=== PATIENT | female | born 1955 | race Caucasian/White ===

== ENCOUNTER 2019-06-19 06:09 | Emergency (ER) | payer MEDICARE, SELFPAY ==
--- NOTE | ~2019-06-19 | XR_ITS ---
EXAMINATION: XR chest 2V DATE: 06/19/2019 07:37 INDICATION: Palpitations. Hypertension. TECHNIQUE: PA and lateral views of the chest were obtained. COMPARISON: Chest radiograph dated 04/27/2019 FINDINGS: The lungs remain clear with no focal airspace opacities, pulmonary edema, pleural effusion or pneumot horax. The cardiomediastinal silhouette is normal. Cholecystectomy clips in the right upper quadrant. Mild lumbar levoscoliosis with moderate spondylosis. IMPRESSION: 1. No acute cardiopulmonary disease. Reviewed, dictated and finalized at location A. CLEANING ATTENDANT
[2019-06-19 06:18] VITALS: BP 199/101; PULSE 110; RESP 20; TEMP 36.7; O2SAT 97
--- NOTE | 2019-06-19 06:24 | ECG_ITS ---
Measurements Intervals [place] Rate: 109 P: 42 SC: 178 QRS: -8 QRSD: 137 T: -5 QT: 354 QTc: 478 Interpretive Statements SINUS TACHYCARDIA RIGHT BUNDLE BRANCH BLOCK ABNORMAL ECG Electronically Signed On 06-19-2019 7:05:43 STAFF NURSE ANESTHETIST by Carlito Mtz D.O.
[2019-06-19 06:27] VITALS: BP 199/97; PULSE 116; RESP 20; O2SAT 100
--- NOTE | 2019-06-19 06:40 | ED.GENADULT ---
HPI - General Adult General Chief complaint: Recheck/Abnormal Lab/Rx Stated complaint: High BP Time Seen by Provider: 06/19/19 06:40 Source: patient Mode of arrival: ambulatory Limitations: no limitations History of Present Illness HPI narrative: Patient is a 64-year-old female who presents for evaluation of hypertension and palpitations. Patient reports a complicated course of hormone issues for which she follows at [facility]. Patient states that she is on exogenous estrogen for this, and awakened this morning at 4 in the morning with a feeling of general unwellness, she denied any chest pain, did report very mild palpitations. No shortness of breath. She denies leg swelling or pain. No history of DVT. Patient takes an ibuprofen, denies taking other anticoagulants. She denies fever, cough, shortness of breath, abdominal pain, nausea, vomiting, dysuria or hematuria. Patient states that her palpitations often correlate with her menstrual cycle, but this is not the correct timing of her symptoms. Patient otherwise follows with Dr. Hawkins, has taken metoprolol with resolution of her palpitations in the past. Related Data Home Medications Medication Instructions Recorded Confirmed levothyroxine [Levoxyl] 175 mcg PO DAILY 04/30/19 06/19/19 metformin 750 mg PO BID 04/30/19 06/19/19 icosapent ethyl 1 gram capsule 4 gm PO BID 05/22/19 06/19/19 metoprolol succinate 50 mg 50 mg PO DAILY 05/22/19 06/19/19 tablet,extended release 24 hr estradiol 0.1 mg PO DAILY 06/19/19 06/19/19 Allergies Allergy/AdvReac Type Severity Reaction Status Date / Time gianna Allergy Severe HIVES/RED Verified 06/19/19 06:25 FACE Penicillins Allergy Severe ANAPHYLACTIC Verified 06/19/19 06:25 SHOCK levofloxacin Allergy Intermediate Rash Verified 06/19/19 06:25 penicillin G Allergy Intermediate Rash Verified 06/19/19 06:25 red dye Allergy Intermediate HIVES Verified 06/19/19 06:25 Sulfa (Sulfonamide Allergy Intermediate Rash Verified 06/19/19 06:25 Antibiotics) Yylqthd-Zjm-Tqt Reductase Allergy Unknown IRRITABLE Verified 06/19/19 06:25 Inhibitor BOWEL doxycycline Allergy Unknown Verified 06/19/19 06:25 Contrast Media Allergy Unknown BODY RASH Uncoded 06/19/19 06:25 Review of Systems Review of Systems: Narrative: CONSTITUTIONAL: Denies fever, chills, or sweats. EYES: Denies visual changes, redness, or discharge. ENT: Denies rhinorrhea, reports sinus congestion CARDIOVASCULAR: Denies chest pain, reports palpitations, denies extremity edema RESPIRATORY: Denies cough or dyspnea. GASTROINTESTINAL: Denies abdominal pain, nausea, vomiting, or diarrhea. GENITOURINARY: Denies dysuria or hematuria. SKIN: Denies rash or itching. MUSCULOSKELETAL: Denies back pain, joint pain, or myalgia. NEUROLOGIC: Denies headache, numbness, or weakness. [facility] Past Medical History Medical History Bilateral artificial lens implant Cataracts, bilateral Diabetes Endometriosis Krzysztof's thyroiditis HTN (hypertension) Hyperlipidemia Hypothyroid IBS (irritable bowel syndrome) Migraine Rosacea Sinus problem Small bowel obstruction Toe fracture, right Ureteropelvic junction calculus Wears glasses reading Surgical History Surgical History H/O inguinal hernia repair History of cholecystectomy History of lithotripsy History of total hysterectomy with bilateral salpingo-oophorectomy (BSO) History of tubal ligation Family History Family History Father Family history of elevated blood lipids Family history of diabetes mellitus in first degree relative Sibling Family history of elevated blood lipids Mother Family history of coronary artery disease Social History Social History Smoking status: Never smoker Sec
[2019-06-19] MEDS: SODIUM CHLORIDE 0.9% IV 1,000 ML 999 ML IV CONT (07:09)
[2019-06-19 07:10] VITALS: BP 171/99; PULSE 100; RESP 17; TEMP 36.2; O2SAT 98
[2019-06-19 07:17] LABS: Add Urine Microscopic? YES; Appearance Urine Clear (Clear); Bilirubin Urine Negative (Negative); Blood Urine Negative (Negative); Color Urine Yellow (Yellow); Glucose Urine UA Negative (Negative); Hyaline Casts Urine 20-29 /lpf; Ketones Urine Trace mg/dL (Negative); Leukocyte Esterase Ur Negative LEU/UL (Negative); Mucus Urine Heavy /lpf; Nitrate Urine Negative (Negative); Protein Urine 1+ mg/dL (Negative); RBC Urine 0-2 /hpf (0-2); Squamous Epithelial Cell Urine Few /hpf (Few); WBC Urine 0-3 /hpf
[2019-06-19 07:18] LABS: Specific Grav Ur 1.033 (1.001-1.035)
--- NOTE | 2019-06-19 07:36 | PC.NURSE ---
Patient in CT at this time
[2019-06-19 07:37] LABS: Basophils Percent Auto 0.6 % (0.2-1.2); Eosinophils Absolute Auto 0.1 K/mm3 (0-0.3); Eosinophils Percent Auto 2.3 % (0-4.4); Hematocrit 38.3 % (37.0-47.0); Hemoglobin 12.5 g/dL (12.0-15.0); Immature Granulocyte Absolute 0.01 K/mm3 (0.00-0.031); Immature Granulocyte Percent A 0.3 % (0-0.5); Lymphocytes Absolute Auto 1.51 K/mm3 (0.9-3.2); Lymphocytes Percent Auto 43.5 % (18.3-44.2); Mean Corpuscular HGB Conc 32.6 g/dl (32-36); Mean Corpuscular Hemoglobin 27.1 pg (26-34); Mean Corpuscular Volume 82.9 fl (80-100); Mean Platelet Volume 8.3 fl (7.4-10.4); Monocytes Absolute Auto 0.5 K/mm3 (0.1-0.6); Monocytes Percent Auto 13.8 % (2.6-8.5); Neutrophils Absolute Auto 1.4 K/mm3 (1.3-6.7); Neutrophils Percent Auto 39.5 % (45.5-73.1); Platelet Count Result 309 k/mm3 (150-375); Red Blood Count 4.62 M/mm3 (4.2-5.4); White Blood Count 3.5 K/mm3 (4.5-10.0)
[2019-06-19 07:48] LABS: Blood Urea Nitrogen 15 mg/dL (7-17); Calcium 8.7 mg/dL (8.4-10.2); Carbon Dioxide 19 mmol/L (22-30); Chloride 106 mmol/L (98-107); Estimated Glomerular Filt Rate > 60; Glucose 110 mg/dL (65-105); Sodium 139 mmol/L (137-145)
[2019-06-19 07:51] VITALS: RESP 18
[2019-06-19 08:00] LABS: Troponin I < 0.012 ng/mL (0.000-0.034)
[2019-06-19 08:03] LABS: Partial Thromboplastin Time 22.1 SECONDS (22.3-36.8); Prothrombin Time 12.5 Seconds (11.1-14.7)
[2019-06-19 09:00] VITALS: BP 166/92; PULSE 87; RESP 17; TEMP 36.7; O2SAT 98
[2019-06-19 09:34] LABS: Thyroid Stimulating Hormone Reflex 0.652 uIU/mL (0.465-4.68)
[2019-06-19 09:50] LABS: Troponin I < 0.012 ng/mL (0.000-0.034)
[2019-06-19 10:20] VITALS: BP 157/93; PULSE 88; RESP 25; TEMP 36.3; O2SAT 100
== END 2019-06-19 10:20 | disposition home or self-care (01) ==
PROVIDERS: Emergency Provider Emergency Medicine; PCP Family Medicine Adolescent Medicine
DX: R00.2 Palpitations (principal); E11.9 Type 2 diabetes mellitus without complications; N80.9 Endometriosis, unspecified; E06.3 Autoimmune thyroiditis; I10 Essential (primary) hypertension; E78.5 Hyperlipidemia, unspecified; E03.9 Hypothyroidism, unspecified; K58.9 Irritable bowel syndrome, unspecified; Z98.42 Cataract extraction status, left eye; Z98.41 Cataract extraction status, right eye; Z96.1 Presence of intraocular lens; Z79.84 Long term (current) use of oral hypoglycemic drugs; R00.0 Tachycardia, unspecified; I45.10 Unspecified right bundle-branch block
CPT/HCPCS: 36415; 71046; 80048; 81001; 84443; 84484; 85025; 85380; 85610; 85730; 93005; 96360; 99284; J7030

== ENCOUNTER 2019-06-21 13:12 | Emergency (ER) | payer MEDICARE, SELFPAY ==
--- NOTE | 2019-06-21 14:25 | PC.NURSE ---
pt states symptoms have completely resolved. states does not need to be seen
== END 2019-06-21 14:25 | disposition left against medical advice (07) ==
LOC: ANHED 14:56
PROVIDERS: PCP Family Medicine Adolescent Medicine
DX: Z53.21 Procedure and treatment not carried out due to patient leaving prior to being seen by health care provider (principal)
CPT/HCPCS: 99199

== ENCOUNTER 2019-07-22 00:58 | Emergency (ER) | payer MEDICARE, SELFPAY ==
--- NOTE | ~2019-07-22 | XR_ITS ---
XR chest 2V DATE: 07/22/2019 01:23 INDICATION: Chest pressure TECHNIQUE: PA and lateral views COMPARISON: 06/18/2021 view chest FINDINGS: Normal heart size. No hilar or mediastinal enlargement. No pulmonary infiltrate or consolid ation, pleural effusion or pulmonary vascular congestion or pneumothorax. Surgical clips, right upper quadrant, likely due to cholecystectomy. Scoliosis and degenerative changes of the thoracic and lumbar spine. IMPRESSION: No active cardiopulmonary disease Reviewed, dictated and finalized at location A.
--- NOTE | 2019-07-22 01:09 | ECG_ITS ---
Measurements Intervals [place] Rate: 99 P: 6 AR: 160 QRS: 6 QRSD: 143 T: -13 QT: 374 QTc: 480 Interpretive Statements SINUS RHYTHM RIGHT BUNDLE BRANCH BLOCK BASELINE ARTIFACT- I, II, AVR, AVF ABNORMAL ECG Electronically Signed On 07-22-2019 8:02:59 CDT by Carlito Mtz D.O.
[2019-07-22 01:11] VITALS: BP 171/101; PULSE 96; RESP 19; TEMP 37; O2SAT 98
[2019-07-22 01:15] VITALS: O2SAT 100
--- NOTE | 2019-07-22 01:22 | ED.CHESTPAIN ---
HPI - Chest Pain General Chief Complaint: Chest Pain Stated Complaint: high bp, chest presssure, high HR Time Seen by Provider: 07/22/19 01:20 Source: patient and RN notes reviewed Mode of arrival: other Limitations: no limitations History of Present Illness HPI narrative: Pt is a 64 y/o male who presents to the ED with c/o chest pain that began at 6 PM yesterday (07/21/19) evening while at rest. Pt states that her pulse was in the 115-120 while at rest. Pt has a hx of Krzysztof's thyroiditis. Pt states that her TSH is in range when her blood pressure will peak. Pt states that she when she takes Metoprolol, her blood pressure will drop. Pt took Metoprolol at 6 PM and she took her blood pressure every 15 minutes before slowly declining. She notes her blood pressure was 145/80 at 8 PM yesterday. Pt states that she took Metoprolol again at 9 PM and her blood pressure raised to 157/90s. Pt states that this is the first case that her blood pressure began to rise after declining. Pt denies palpations, dyspnea, abdominal pain, nausea, vomiting, and diaphoresis. No leg swelling. No leg redness, no recent surgeries, no recent long car or air travel. MD complaint: chest pain Onset (ago): hour(s) Prior episodes: Yes Onset: during rest Pain radiation: none Relieving factors: nothing Associated symptoms: other (denies associated symptoms) Related Data Home Medications Medication Instructions Recorded Confirmed levothyroxine [Levoxyl] 175 mcg PO DAILY 04/30/19 06/19/19 metformin 750 mg PO BID 04/30/19 06/19/19 icosapent ethyl 1 gram capsule 4 gm PO BID 05/22/19 06/19/19 metoprolol succinate 50 mg 50 mg PO DAILY 05/22/19 06/19/19 tablet,extended release 24 hr estradiol 0.1 mg PO DAILY 06/19/19 06/19/19 Allergies Allergy/AdvReac Type Severity Reaction Status Date / Time gianna Allergy Severe HIVES/RED Verified 06/19/19 06:25 FACE Penicillins Allergy Severe ANAPHYLACTIC Verified 06/19/19 06:25 SHOCK levofloxacin Allergy Intermediate Rash Verified 06/19/19 06:25 penicillin G Allergy Intermediate Rash Verified 06/19/19 06:25 red dye Allergy Intermediate HIVES Verified 06/19/19 06:25 Sulfa (Sulfonamide Allergy Intermediate Rash Verified 06/19/19 06:25 Antibiotics) Ebovvrb-Tsm-Yzj Reductase Allergy Unknown IRRITABLE Verified 06/19/19 06:25 Inhibitor BOWEL doxycycline Allergy Unknown Verified 06/19/19 06:25 Contrast Media Allergy Unknown BODY RASH Uncoded 06/19/19 06:25 Review of Systems Review of Systems: Narrative: CARDIOVASCULAR: Reports chest pain. Denies palpitations and diaphoresis. RESPIRATORY: Denies dyspnea. GASTROINTESTINAL: Denies abdominal pain, nausea, and vomiting. NEURO: Denies numbness SKIN: Denies rash All systems reviewed & are unremarkable except as noted in HPI and below PMFSH Past Medical History Medical History Bilateral artificial lens implant Cataracts, bilateral Diabetes Endometriosis Krzysztof's thyroiditis HTN (hypertension) Hyperlipidemia Hypothyroid IBS (irritable bowel syndrome) Migraine Rosacea Sinus problem Small bowel obstruction Toe fracture, right Ureteropelvic junction calculus Wears glasses reading Social History Social History Smoking status: Never smoker Second hand tobacco smoke exposure: No Alcohol intake: never Gender identity (if verbalized by the patient): Female Exam Narrative: Exam Narrative: CONSTITUTIONAL: Awake, alert, conversant HEAD: Normocephalic, atraumatic. EYES: EOMI, conjunctiva clear ENT: Nares patent. Mucous membranes moist. NECK: Full range of motion CHEST: No chest wall tenderness. RESPIRATORY: No respiratory distress, speaking in full sentences, no tachypnea HEART: Regular rate. ABDOMEN: Non distended, non tender EXTREMITIES: Normal range of motion. No edema. No calf tenderness radial pulses present (2+ bilaterally) SKIN: Warm, dry,
[2019-07-22 01:32] LABS: Basophils Percent Auto 0.6 % (0.2-1.2); Eosinophils Absolute Auto 0.1 K/mm3 (0-0.3); Eosinophils Percent Auto 2.5 % (0-4.4); Hemoglobin 14.1 g/dL (12.0-15.0); Immature Granulocyte Absolute 0.01 K/mm3 (0.00-0.031); Immature Granulocyte Percent A 0.2 % (0-0.5); Lymphocytes Absolute Auto 3.32 K/mm3 (0.9-3.2); Lymphocytes Percent Auto 64.3 % (18.3-44.2); Mean Corpuscular Hemoglobin 26.5 pg (26-34); Mean Corpuscular Volume 82.7 fl (80-100); Mean Platelet Volume 8.7 fl (7.4-10.4); Monocytes Absolute Auto 0.6 K/mm3 (0.1-0.6); Neutrophils Absolute Auto 1.1 K/mm3 (1.3-6.7); Neutrophils Percent Auto 21.4 % (45.5-73.1); Platelet Count Result 407 k/mm3 (150-375); Red Blood Count 5.32 M/mm3 (4.2-5.4); Red Cell Distribution Width 14.4 % (11.5-14.5); White Blood Count 5.2 K/mm3 (4.5-10.0)
[2019-07-22 01:41] LABS: INR 0.9; Prothrombin Time 12.3 Seconds (11.1-14.7)
[2019-07-22 01:42] LABS: Chloride 100 mmol/L (98-107); Partial Thromboplastin Time 23.5 SECONDS (22.3-36.8)
[2019-07-22 01:55] LABS: Troponin I < 0.012 ng/mL (0.000-0.034)
[2019-07-22 02:01] VITALS: BP 105/69; PULSE 83; RESP 18; TEMP 36.2; O2SAT 100
[2019-07-22 02:01] LABS: Blood Urea Nitrogen 9 mg/dL (7-17); Calcium 9.6 mg/dL (8.4-10.2); Carbon Dioxide 28 mmol/L (22-30); Estimated CRCL calculation 79 ml/min; Estimated Glomerular Filt Rate > 60; Glucose 109 mg/dL (65-105); Potassium 3.4 mmol/L (3.4-5.0); Sodium 137 mmol/L (137-145)
[2019-07-22 02:25] VITALS: BP 133/79; PULSE 80; RESP 19; O2SAT 100
[2019-07-22 03:33] LABS: Thyroid Stimulating Hormone Reflex 0.319 uIU/mL (0.465-4.68)
[2019-07-22 04:20] VITALS: BP 118/63; PULSE 81; RESP 15; TEMP 36.8; O2SAT 97
[2019-07-22 04:57] LABS: Troponin I < 0.012 ng/mL (0.000-0.034)
== END 2019-07-22 04:20 | disposition home or self-care (01) ==
PROVIDERS: Emergency Provider Emergency Medicine; PCP Family Medicine Adolescent Medicine
DX: R00.2 Palpitations (principal); R07.89 Other chest pain; E06.3 Autoimmune thyroiditis; E11.9 Type 2 diabetes mellitus without complications; I10 Essential (primary) hypertension; E03.9 Hypothyroidism, unspecified; K58.9 Irritable bowel syndrome, unspecified; Z98.42 Cataract extraction status, left eye; Z98.41 Cataract extraction status, right eye; Z96.1 Presence of intraocular lens; I45.10 Unspecified right bundle-branch block; Z79.84 Long term (current) use of oral hypoglycemic drugs
CPT/HCPCS: 36415; 71046; 80048; 84439; 84443; 84484; 85025; 85610; 85730; 93005; 99284

== ENCOUNTER 2019-09-26 05:21 | Inpatient (IN) | payer MEDICARE, SELFPAY ==
[2019-09-26] VITALS (23 sets, daily range): BP systolic 141–183; BP diastolic 73–123; PULSE 82–145; RESP 16–27; TEMP 36.4–36.7; O2SAT 86–98; BMI 40.8
--- NOTE | ~2019-09-26 | XR_ITS ---
EXAMINATION: XR abdomen NG/feed tube insert DATE: 09/26/2019 07:36 INDICATION: Nasogastric tube placement. TECHNIQUE: An upright view of the abdomen was obtained. COMPARISON: CT abdomen and pelvis 09/26/2019 FINDINGS: The lower abdomen is excluded. There are no visualized dilated loops of bowel. The nasogast sabino tube tip is in the stomach. Surgical clips in the right upper quadrant are likely from cholecyste ctomy. IMPRESSION: 1. Nasogastric tube tip in the stomach. Reviewed, dictated and finalized at location E.
--- NOTE | ~2019-09-26 | XR_ITS ---
EXAMINATION: XR abdomen obstructive series DATE: 09/28/2019 06:01 INDICATION: Small bowel obstruction. TECHNIQUE: Frontal supine and upright views of the abdomen were obtained. COMPARISON: Obstructive series and small bowel follow-through dated 09/27/2019 FINDINGS: There is contrast from prior small bowel series scattered throughout the normal caliber colon. No dil ated loops of gas-filled small bowel or residual contrast in the small bowel. Cholecystectomy clips i n the right upper quadrant. Lung bases are clear. Mild thoracolumbar levoscoliosis with moderate spon dylosis. IMPRESSION: 1. No dilated loops of small bowel or residual oral contrast in the small bowel to suggest obstructi on. Reviewed, dictated and finalized at location A. IMPRESSION: 1. No dilated loops of small bowel or residual oral contrast in the small seven l to suggest obstruction.
--- NOTE | ~2019-09-26 | CT_ITS ---
EXAMINATION: CT abdomen pelvis wo con DATE: 09/26/2019 06:27 INDICATION: Abdominal pain and fullness. TECHNIQUE: Computed tomography (CT) of the abdomen and pelvis was performed without intravenous contr ast. Automated exposure control and iterative reconstruction technique were employed. The dose-length product was 1440.73 mGy-cm. COMPARISON: 01/03/2019 FINDINGS: Lung bases are clear. Heart size is normal. Small amount of atherosclerotic coronary artery calcifica tion. No pericardial or pleural effusion. Cholecystectomy clips at the gallbladder fossa. Liver, sple en, pancreas and bilateral adrenal glands are normal. A few cysts measuring up to 12 mm the right kid brandon. Left kidney is normal. No urolithiasis or hydronephrosis. Normal appendix. A few scattered sigmo id diverticula without adjacent inflammatory change to suggest diverticulitis. There is mild dilation of a loop of small bowel measuring up to 4.1 cm in diameter in the mid abdomen with transition point in the right lower quadrant. There is scattered feces within the mildly dilated loop consistent with delayed transit. Trace amount of ascites in the pelvis. Decompressed bladder is normal. The uterus i s not identified and has likely been surgically resected. Calcified scarring along the anterior pelvi c wall suggesting prior panniculectomy. Multiple small lymph nodes more notable for number than size along the distal small bowel mesentery which are likely reactive. No pathologically enlarged abdomina l or pelvic lymphadenopathy. Mild thoracolumbar levocurvature with moderate spondylosis. Moderate to severe bilateral hip osteoarthritis. IMPRESSION: 1. Likely early/partial small bowel obstruction with mild dilation of a loop of small bowel with gan sition point in the right lower quadrant. This appears to be the same transition point dating back to 06/02/2015. Reviewed, dictated and finalized at location A. IMPRESSION: 1. Likely early/partial small bowel obstruction with mild dilation of a loop of small bowel with transition point in the right lower quadrant. This appears to be the same transition point dating back to 06/02/2015.
--- NOTE | ~2019-09-26 | XR_ITS ---
EXAMINATION: XR sm bowel follow through WS DATE: 09/27/2019 19:39 INDICATION: Small bowel obstruction. TECHNIQUE: Oral contrast was administered, and a time course of radiographs of the abdomen was obtain ed. Fluoroscopy of the small bowel was performed. Fluoroscopy exposure time was 0.2 minutes. The tota l number of images was 7. COMPARISON: CT abdomen and pelvis 09/26/2019, 06/02/2015 FINDINGS: The nasogastric tube tip is in the stomach. There is a focal stricture in distal ileum in right upper quadrant. Small bowel is dilated proximal to this area. Transit time from the stomach to proximal co bela was approximately 15 minutes. IMPRESSION: 1. Focal stricture in distal ileum with dilated upstream small bowel, consistent with partial small b owel obstruction. Note that this stricture was present on 06/02/2015. Reviewed, dictated and finalized at location A. IMPRESSION: 1. Focal stricture in distal ileum with dilated upstream small bowel, consisten t with partial small bowel obstruction. Note that this stricture was present on 06/02/2015.
--- NOTE | ~2019-09-26 | XR_ITS ---
EXAMINATION: XR abdomen obstructive series DATE: 09/27/2019 06:18 INDICATION: Small bowel obstruction. TECHNIQUE: Frontal supine and upright views of the abdomen were obtained. COMPARISON: 09/26/2019 FINDINGS: Nasogastric tube tip in proximal side port in the body of the stomach. Small amount of gas scattered throughout the colon. No dilated loops of gas-filled small bowel to suggest obstruction. Cholecystect shola clips in the right upper quadrant. No free intraperineal gas. Lungs are clear. Heart size is norm al. Mild lumbar levocurvature. IMPRESSION: 1. No free intraperitoneal gas or dilated gas-filled loops of bowel to suggest obstruction. Reviewed, dictated and finalized at location A.
--- NOTE | 2019-09-26 05:24 | ED.ABDPAIN ---
HPI - Abdominal Pain General Chief Complaint: Abdominal Pain <Noel Jimenez MD - Last Filed: 09/26/19 07:28> Stated Complaint: bowel discomfort <Noel Jimenez MD - Last Filed: 09/26/19 07:28> Time Seen by Provider: 09/26/19 05:24 <Noel Jimenez MD - Last Filed: 09/26/19 07:28> History of Present Illness HPI narrative: Patient is a 64-year-old female who presents the ER with epigastric pain. Began yesterday evening and has progressed through the night. Is a fullness with bloating. It causes nausea and dry heaves but no vomiting. She had a stringy bowel movement prior to arrival here. No radiation into the flank or groin. No urinary frequency/urgency/dysuria/hematuria. Feels similar when she had a partial bowel obstruction related to her use of a statin. She reports she has bad reactions when using statin medication and his recently started 1 over the last couple months. She had been having success with that up until this episode today. <Noel Jimenez MD - Last Filed: 09/26/19 07:28> Related Data Home Medications: Home Medications Medication Instructions Recorded Confirmed levothyroxine [Levoxyl] 175 mcg PO DAILY 04/30/19 06/19/19 metformin 750 mg PO BID 04/30/19 06/19/19 icosapent ethyl 1 gram capsule 4 gm PO BID 05/22/19 06/19/19 metoprolol succinate 50 mg 50 mg PO DAILY 05/22/19 06/19/19 tablet,extended release 24 hr rosuvastatin mg 09/26/19 <Noel Jimenez MD - Last Filed: 09/26/19 07:28> Allergies/Adverse Reactions: Allergies Allergy/AdvReac Type Severity Reaction Status Date / Time gianna Allergy Severe HIVES/RED Verified 09/26/19 05:35 FACE Penicillins Allergy Severe ANAPHYLACTIC Verified 09/26/19 05:35 SHOCK levofloxacin Allergy Intermediate Vomiting Verified 09/26/19 05:35 penicillin G Allergy Intermediate Rash Verified 09/26/19 05:35 red dye Allergy Intermediate HIVES Verified 09/26/19 05:35 Sulfa (Sulfonamide Allergy Intermediate Rash Verified 09/26/19 05:35 Antibiotics) Ckenjcn-Dvi-Xye Reductase Allergy Unknown IRRITABLE Verified 09/26/19 05:35 Inhibitor BOWEL doxycycline AdvReac Diarrhea Verified 09/26/19 05:35 Contrast Media Allergy Unknown BODY RASH Uncoded 09/26/19 05:35 <Noel Jimenez MD - Last Filed: 09/26/19 07:28> Review of Systems Review of Systems: All systems reviewed & are unremarkable except as noted in HPI and below <Noel Jimenez MD - Last Filed: 09/26/19 07:28> Constitutional: Constitutional: Denies fatigue, Denies fever(s) and Denies weakness <Noel Jimenez MD - Last Filed: 09/26/19 07:28> ENT: Denies nasal congestion and Denies sore throat <Noel Jimenez MD - Last Filed: 09/26/19 07:28> Respiratory: Respiratory: Denies cough, Denies dyspnea and Denies wheezing <Noel Jimenez MD - Last Filed: 09/26/19 07:28> Gastrointestinal: Gastrointestinal: Reports abdominal pain, Reports bloating, Denies constipation, Denies diarrhea, Reports nausea and Denies vomiting <Noel Jimenez MD - Last Filed: 09/26/19 07:28> Genitourinary: Genitourinary: Denies hematuria, Denies nocturia, Denies dysuria and Denies flank pain <Noel Jimenez MD - Last Filed: 09/26/19 07:28> PMFSH Past Medical History Medical History: Medical History Bilateral artificial lens implant Cataracts, bilateral Diabetes Endometriosis Krzysztof's thyroiditis HTN (hypertension) Hyperlipidemia Hypothyroid IBS (irritable bowel syndrome) Migraine Rosacea Sinus problem Small bowel obstruction Toe fracture, right Ureteropelvic junction calculus Wears glasses reading <Noel Jimenez MD - Last Filed: 09/26/19 07:28> Surgical History Surgical History: Surgical History H/O inguinal hernia repair History of cholecystectomy History of lithotripsy History of total hysterectomy wit
--- NOTE | 2019-09-26 05:45 | ECG_ITS ---
Measurements Intervals [place] Rate: 125 P: 37 AK: 145 QRS: -18 QRSD: 134 T: -8 QT: 331 QTc: 478 Interpretive Statements SINUS TACHYCARDIA RIGHT BUNDLE BRANCH BLOCK BASELINE WANDER- V4-V5 ABNORMAL ECG Electronically Signed On 09-26-2019 7:13:55 CDT by Cralito Mtz D.O.
[2019-09-26 06:00] LABS: Basophils Percent Auto 0.4 % (0.2-1.2); Eosinophils Absolute Auto 0.1 K/mm3 (0-0.3); Eosinophils Percent Auto 1.7 % (0-4.4); Hematocrit 42.8 % (37.0-47.0); Immature Granulocyte Absolute 0.01 K/mm3 (0.00-0.031); Immature Granulocyte Percent A 0.2 % (0-0.5); Lymphocytes Absolute Auto 2.19 K/mm3 (0.9-3.2); Lymphocytes Percent Auto 45.7 % (18.3-44.2); Mean Corpuscular HGB Conc 32.7 g/dl (32-36); Mean Corpuscular Hemoglobin 26.9 pg (26-34); Mean Corpuscular Volume 82.3 fl (80-100); Mean Platelet Volume 8.6 fl (7.4-10.4); Monocytes Absolute Auto 0.6 K/mm3 (0.1-0.6); Monocytes Percent Auto 13.4 % (2.6-8.5); Neutrophils Absolute Auto 1.9 K/mm3 (1.3-6.7); Neutrophils Percent Auto 38.6 % (45.5-73.1); Platelet Count Result 401 k/mm3 (150-375); Red Cell Distribution Width 15.3 % (11.5-14.5); White Blood Count 4.8 K/mm3 (4.5-10.0)
[2019-09-26] MEDS: SODIUM CHLORIDE 0.9% IV 1,000 ML 999 ML IV CONT (06:11)
[2019-09-26] MEDS: ONDANSETRON INJ 4 MG/2 ML VIAL IV PUSH (06:11)
[2019-09-26 06:12] LABS: Alanine Aminotransferase 13 U/L (4-35); Albumin Level 4.1 g/dL (3.5-5.1); Alkaline Phosphatase 113 U/L (38-126); Aspartate Amino Transferase 18 U/L (14-36); Bilirubin,Total 0.3 mg/dL (0.2-1.3); Blood Urea Nitrogen 14 mg/dL (7-17); Carbon Dioxide 21 mmol/L (22-30); Chloride 105 mmol/L (98-107); Estimated CRCL calculation 69 ml/min; Estimated Glomerular Filt Rate > 60; Glucose 133 mg/dL (65-105); Lipase 136 U/L (23-300); Potassium 3.9 mmol/L (3.4-5.0); Sodium 138 mmol/L (137-145)
[2019-09-26 06:46] LABS: Add Urine Microscopic? YES; Appearance Urine Clear (Clear); Bacteria Urine Trace /hpf; Bilirubin Urine Negative (Negative); Blood Urine Negative (Negative); Color Urine Yellow (Yellow); Glucose Urine UA Negative (Negative); Ketones Urine Trace mg/dL (Negative); Leukocyte Esterase Ur Negative LEU/UL (Negative); Mucus Urine Heavy /lpf; Nitrate Urine Negative (Negative); Protein Urine 2+ mg/dL (Negative); RBC Urine 0-2 /hpf (0-2); Specific Grav Ur 1.028 (1.001-1.035); Squamous Epithelial Cell Urine Moderate /hpf (Few); WBC Urine 0-3 /hpf
--- NOTE | 2019-09-26 07:09 | PC.NURSE ---
Bedside report received from ISIDRO Christie, to continue care.
[2019-09-26] MEDS: BENZOCAINE/TETRACAINE SPRAY (*SP) 56 ML AEROSOL 1 SPRAY (07:41)
--- NOTE | 2019-09-26 07:42 | PC.NURSE ---
Pt coughing and occasionally gagging. Cetacaine placed to oropharynx for pt's comfort.
--- NOTE | 2019-09-26 08:22 | PC.NURSE ---
Continue to await bed assignment. Pt denies needs at present.
--- NOTE | 2019-09-26 08:39 | PC.NURSE ---
Upon returning from the bathroom, pt reports that her NG tube is causing the vomit to go back into my stomach . Note suction was to low intermittent wall per order Dr. Caceres; when switched to full suction note tube appears to clear. Note bleeding to NG strip from right nare and asked patient if this was possibly going down her throat; states no it's definitely vomit . Pt also is requesting that her go and purchase cetacol from an outside pharmacy to soothe her throat.
[2019-09-26] MEDS: SODIUM CHLORIDE 0.9% IV 1,000 ML 125 ML IV CONT (10:07)
--- NOTE | 2019-09-26 10:15 | PM.CNGS ---
Assessment and Plan Assessment and plan (1) Small bowel obstruction: Code(s): K56.609 - Unspecified intestinal obstruction, unspecified as to partial versus complete obstruction Status: Acute Assessment and Plan: CT scan reviewed and discussed with the patient in detail. She has evidence of an early or partial small bowel obstruction with a transition point in the right lower quadrant. She has a significant history of multiple abdominal surgeries, and therefore adhesions is a likely cause. The patient has already began to clinically improve and is passing some gas. We will continue with conservative management at this time, including NG tube decompression, bowel rest, IV fluids, and analgesics. Will continue to monitor the patient with serial abdominal exams and abdominal films. I ordered x-rays for tomorrow morning. Thank you for allowing me to see the patient in consultation and we will continue to follow along with you. (2) HTN (hypertension): Code(s): I10 - Essential (primary) hypertension Status: Acute (3) Insulin resistance: Code(s): E88.81 - Metabolic syndrome Status: Acute Assessment and Plan: Currently taking metformin. Management per hospitalist. (4) Tachycardia: Code(s): R00.0 - Tachycardia, unspecified Status: Acute (5) Krzysztof's thyroiditis: Code(s): E06.3 - Autoimmune thyroiditis Status: Acute (6) Morbid obesity with BMI of 40.0-44.9, adult: Code(s): E66.01 - Morbid (severe) obesity due to excess calories; Z68.41 - Body mass index (BMI) 40.0-44.9, adult Status: Acute Additional Plan Discussed the patient's case and formulated plan of care with Dr. Scott. History of Present Illness Consult details Consult date: 09/26/19 Reason for consult: other (Early or partial small bowel obstruction) Requesting physician: Brian Caceres DO Narrative: This is a 64-year-old obese female with a history of insulin resistance, hypertension, hyperlipidemia, and multiple previous abdominal surgeries, who presented to the emergency department for evaluation of abdominal pain and dry heaving. The patient was admitted to [facility] in May of 2015 for a small bowel obstruction. She was treated at that time with NG tube decompression and the obstruction resolved with non-operative management. She reports noting an onset of generalized discomfort and a feeling of fullness around 10:30 p.m. last night. She states this discomfort would become intensified in waves. This continued until about 4:00 a.m. and the pain gradually was intensifying. She began to have multiple episodes of dry heaving, but denies nausea and was unable to produce any emesis. Because her symptoms were similar, but more mild, in comparison to her last bowel obstruction, she decided to present to the ER for further evaluation. CT scan of the abdomen and pelvis in the emergency department showed an early/partial small bowel obstruction with a transition point in right lower quadrant. On presentation, she was tachycardic with a heart rate of 145 and initial blood pressure of 148/93. She was given IV fluids and was admitted to the hospitalist service. Our service was consulted for the small bowel obstruction. An NG tube was placed to low intermittent suction and an x-ray was obtained to confirm placement. The patient is now being seen on the medical floor. She denies any abdominal pain at this time. She reports still having a feeling of ?fullness? but does not refer to this as pain. She denies any current nausea or bloating. She reportedly had a normal bowel movement yesterday morning and then had a much smaller bowel movement around 4:00 a.m. this morning. She reports flatus while in the ER. No other complaints at this time. She denies having any bowel issues since her previous admission in 2016. For more remote history, the patient has had multiple abdominal surgeries
--- NOTE | 2019-09-26 12:05 | ADMGEN ---
This patient, Diya Vazquez, was admitted to 3 Med Surg Room 302-01 @ 0900. Patient/family oriented to hospital policies and general routines including ID bracelet, bed and alarms, visiting hours, pain management, procedures, bathroom and other care routines, personal items, smoking policy, room service/diet, and visiting hours. Valuables list has been completed. Information on how to activate the Rapid Response Team has been discussed. Patient/Family are encouraged to report perceived risks to care and to ask questions if they do not understand what they are told or what they should do.
[2019-09-26] MEDS: PANTOPRAZOLE SODIUM IV 40 MG VIAL IV PUSH (13:04)
--- NOTE | 2019-09-26 13:32 | PM.IMHP ---
H&P: HPI History of Present Illness Chief complaint: Small bowel obstruction Narrative: Diya Vazquez is a 64 year old female with history of bowel obstruction here for abdominal pain. Last evening, patient developed mild abdominal pain that she describes as ?discomfort? that would intensify for few seconds. No bloating. She had mild nausea with vomiting of clear mucus. She took grape juice without benefit. She was continuing to have flatus. She did have similar symptoms 4 years ago and was discovered to have of partial small-bowel obstruction. She was treated with NG tube suction and bowel rest but no surgery at that time. She has had multiple abdominal surgeries in the past. Please see below. She also has a history of irritable bowel syndrome that was worse with statin therapy. She takes Urdu yogurt daily and her irritable bowel symptoms have resolved essentially. She has normal bowel movements usually 1-2 a day. She denies any chest pain, palpitations, shortness of breath, cough, fever or chills. No melena, hematochezia or hematemesis. She does have sinus symptoms recently has been taking vtay-fje-[id number] antihistamines and decongestants. No urinary symptoms. She presented the emergency room for evaluation. In the emergency Room she was tachycardic at 145 and slightly elevated blood pressure. Labs were unrevealing. Of the abdomen showed partial small-bowel obstruction with mildly dilated loops of small bowel with transition point in the right lower quadrant. This was similar to findings in 2016. NG tube is placed and she was admitted for further care. General surgery has been consulted. Review of Systems Review of Systems: All systems reviewed & are unremarkable except as noted in HPI and below PMFSH Past Medical History Medical History Bilateral artificial lens implant Cataracts, bilateral Endometriosis Krzysztof's thyroiditis History of small bowel obstruction In May of 2015. Treated at [facility] with NG tube decompression - resolved. HTN (hypertension) Hyperlipidemia Insulin resistance Migraine Rosacea Sinus problem Toe fracture, right Ureteropelvic junction calculus Wears glasses reading Surgical History Surgical History History of abdominoplasty 1992 injury to abdominal muscle in during childbirth and subsequently had an abdominoplasty for repair. History of cholecystectomy 1997 Laparoscopic common bile duct exploration for choledocholithiasis with cholecystectomy converted to open cholecystectomy with a right subcostal incision. History of ERCP Prior to CBD exploration and cholecystectomy, unsuccessful in removing all stones. History of lithotripsy December 2018. History of total hysterectomy with bilateral salpingo-oophorectomy (BSO) 2016 through a pfannenstiel incision History of tubal ligation Laparoscopic tubal ligation History of ventral hernia repair Incisional hernia repair from previous trochar site incision. Performed as an open hernia repair with mesh at [facility] in 2002. Family History Family History Father Family history of elevated blood lipids Family history of diabetes mellitus in first degree relative Heart disease Sibling Family history of elevated blood lipids Mother , from ruptured AAA Family history of coronary artery disease AAA (abdominal aortic aneurysm, ruptured) Social History Social History Social History: Patient lives at home with her daughter and . Rare alcohol use. Lifelong nonsmoker. No drug use. Full code. Designates her , Juan Vazquez, as her decision-maker. Smoking status: Never smoker Second hand tobacco smoke exposure: No Alcohol intake: current Drinks per week: 1 Alcohol use detjuliann
[2019-09-26] MEDS: METOPROLOL TARTRATE INJ 5 MG/5 ML VIAL IV PUSH ×2 (17:58→21:15)
--- NOTE | 2019-09-26 18:47 | PC.NURSE ---
Patient refuses Accu-check. After educating the patient on the reason for checking her sugar, being NPO, the patient still refuses and says that she will let us know when she wants us to check her blood sugar.
[2019-09-26] MEDS: IBUPROFEN IV 400 MG in SODIUM CHLORIDE 0.9% IV 100 ML 200 MG IVPB (22:13)
[2019-09-27] VITALS (12 sets, daily range): BP systolic 147–176; BP diastolic 62–96; PULSE 60–101; RESP 16–20; TEMP 36.4–36.5; O2SAT 96–97
--- NOTE | 2019-09-27 | PC.NURSE ---
Patient refused 0000 blood sugar.
[2019-09-27] MEDS: SODIUM CHLORIDE 0.9% IV 1,000 ML 125 ML IV CONT ×3 (00:54→18:06)
[2019-09-27] MEDS: METOPROLOL TARTRATE INJ 5 MG/5 ML VIAL IV PUSH ×4 (02:55→19:47)
[2019-09-27 06:21] LABS: Basophils Percent Auto 0.4 % (0.2-1.2); Eosinophils Absolute Auto 0.1 K/mm3 (0-0.3); Eosinophils Percent Auto 3.2 % (0-4.4); Hematocrit 36.1 % (37.0-47.0); Hemoglobin 11.4 g/dL (12.0-15.0); Lymphocytes Absolute Auto 1.53 K/mm3 (0.9-3.2); Lymphocytes Percent Auto 61.2 % (18.3-44.2); Mean Corpuscular HGB Conc 31.6 g/dl (32-36); Mean Corpuscular Hemoglobin 26.5 pg (26-34); Mean Platelet Volume 8.5 fl (7.4-10.4); Monocytes Absolute Auto 0.4 K/mm3 (0.1-0.6); Monocytes Percent Auto 15.6 % (2.6-8.5); Neutrophils Absolute Auto 0.5 K/mm3 (1.3-6.7); Neutrophils Percent Auto 19.6 % (45.5-73.1); Platelet Count Result 262 k/mm3 (150-375); Red Cell Distribution Width 15.6 % (11.5-14.5); White Blood Count 2.5 K/mm3 (4.5-10.0)
[2019-09-27 06:30] LABS: Blood Urea Nitrogen 11 mg/dL (7-17); Calcium 8.1 mg/dL (8.4-10.2); Carbon Dioxide 23 mmol/L (22-30); Chloride 110 mmol/L (98-107); Estimated CRCL calculation 107 ml/min; Estimated Glomerular Filt Rate > 60; Glucose 91 mg/dL (65-105); Potassium 3.6 mmol/L (3.4-5.0); Sodium 137 mmol/L (137-145)
[2019-09-27 07:18] LABS: Hemoglobin A1C 6.1 % (<5.7)
[2019-09-27 07:41] LABS: Thyroid Stimulating Hormone Reflex 0.113 uIU/mL (0.465-4.68)
[2019-09-27 08:30] LABS: Free T4 Free Thyroxine Reflex 2.01 ng/dL (0.78-2.19)
[2019-09-27] MEDS: PANTOPRAZOLE SODIUM IV 40 MG VIAL IV PUSH (08:34)
[2019-09-27] MEDS: ENOXAPARIN 40 MG/0.4 ML SYRINGE SUB-Q (08:34)
[2019-09-27] MEDS: IBUPROFEN IV 400 MG in SODIUM CHLORIDE 0.9% IV 100 ML 200 MG IVPB ×2 (09:17→22:45)
[2019-09-27 10:05] LABS: Total Triiodothyronine (T3) 1.44 NG/ML (0.97-1.69)
--- NOTE | 2019-09-27 12:22 | PM.PNGS ---
Progress Note: A&P Assessment and Plan (1) Small bowel obstruction: Code(s): K56.609 - Unspecified intestinal obstruction, unspecified as to partial versus complete obstruction Status: Acute Assessment and Plan: [place] to be more of a partial SBO versus ileus. The patient continues to clinically improve. Abdominal films this morning show a normal bowel gas pattern with no dilated loops of small bowel. We will go ahead with a Gastrografin small bowel follow through today. If this goes through to the colon with no obstruction, then we will likely remove the NG and start clear liquids. Encouraged the patient to continue walking the halls. (2) HTN (hypertension): Code(s): I10 - Essential (primary) hypertension Status: Acute (3) Insulin resistance: Code(s): E88.81 - Metabolic syndrome Status: Acute Assessment and Plan: Currently taking metformin. Management per hospitalist. Hgb A1C 6.1 (4) Tachycardia: Code(s): R00.0 - Tachycardia, unspecified Status: Acute Assessment and Plan: Resolved. HR normal this morning. (5) Krzysztof's thyroiditis: Code(s): E06.3 - Autoimmune thyroiditis Status: Acute (6) Morbid obesity with BMI of 40.0-44.9, adult: Code(s): E66.01 - Morbid (severe) obesity due to excess calories; Z68.41 - Body mass index (BMI) 40.0-44.9, adult Status: Acute Additional Plan Discussed the patient's case and plan of care with Dr. Scott. Subjective Subjective Date/Time Seen: 09/27/19 11:22 Patient reports: no new complaints, feels better, flatus and bowel movement (x 4 ) Interval history: Patient doing well today. Denies any abdominal pain, nausea, vomiting, or bloating. Reports flatus and 4 BMs since I saw her yesterday. No other complaints at this time. Review of Systems Review of Systems: All systems reviewed & are unremarkable except as noted in HPI and below Exam Const: General: comfortable, no acute distress, alert and awake GI: Inspection: normal to inspection and non-distended GI Palp: No abdominal tenderness, Yes Soft to palpation, No Guarding due to palpation present (GI) and No Rebound tenderness present Auscultation: normal bowel sounds Other: Multiple scars noted - right subcostal scar, suprapubic scar from pfannenstiel incision, midline scar above umbilicus from previous ventral hernia repair Skin: General skin exam: normal color Neuro: General: moves all extremities and no focal motor deficits Extrem: General: no calf tenderness Psych: Appearance: grossly normal Mental Status: mental status grossly normal Affect: normal affect Attitude: cooperative Thought process: Normal thought process present Objective Data Vital Signs Vital Signs: Vital Signs - 24 hr 09/26/19 17:00 09/26/19 17:58 09/26/19 18:00 Temperature Pulse Rate 101 H 97 97 Respiratory Rate 18 Blood Pressure 143/81 H Pulse Oximetry 90 09/26/19 20:00 09/26/19 21:15 09/26/19 21:58 Temperature 36.4 C Pulse Rate 82 84 86 Respiratory Rate 18 Blood Pressure 154/73 H Pulse Oximetry 95 09/27/19 00:00 09/27/19 02:55 09/27/19 04:00 Temperature Pulse Rate 74 84 67 Respiratory Rate Blood Pressure Pulse Oximetry 09/27/19 06:00 09/27/19 08:34 Temperature 36.5 C Pulse Rate 86 60 Respiratory Rate 16 Blood Pressure 147/62 H Pulse Oximetry 96 Intake/Output Intake/Output: Intake & Output 09/24/19 09/25/19 09/26/19 09/27/19 23:59 23:59 23:59 23:59 Intake Total 1104 2104 Output Total 20 Balance 1084 2104 Meds/Results Medications: Active Medications Generic Name Dose Route Start Last Admin Trade Name Freq PRN Reason Stop Dose Admin Dextrose 12.5 gm 09/26/19 14:00 Dextrose 50% Syringe IV PUSH PRN PRN Hypoglycemia Protocol Enoxaparin Sodium 40 mg 09/27/19 09:00 09/27/19 08:34 Lovenox SUB-Q 40 mg DAILY RAJAN Administration Glucagon 1 mg
--- NOTE | 2019-09-27 13:04 | PM.IMPN ---
Progress Note: A&P Assessment and Plan (1) Small bowel obstruction: Code(s): K56.609 - Unspecified intestinal obstruction, unspecified as to partial versus complete obstruction Status: Acute Assessment and Plan: KUB showing no dilated bowel. +BMs. Minimal NG output. Abd exam benign. SBS being considered but pt has allergy to contrast. Appreciate General surgery input. (2) HTN (hypertension): Code(s): I10 - Essential (primary) hypertension Status: Acute Assessment and Plan: BP reviewed on 09/27/19. Patient with elevated BP on admission but BP better controlled now. Started on IV Metoprolol yesterday. Continue the same but convert to oral route when able. (3) Tachycardia: Code(s): R00.0 - Tachycardia, unspecified Status: Acute Assessment and Plan: Patient was tachycardic on admission with EKG showing sinus tachycardia. This could be related to her being off her beta-beatriz. Pseudo ephedrine can also cause tachycardia. Thyroid panel noted from July which could also be contributing to her tachycardia. She also states she has a hx of elevated HR in the past. Pseudo ephedrine on hold. Continue beta-beatriz. Continue to monitor for now. Okay to stop tele (4) Insulin resistance: Code(s): E88.81 - Metabolic syndrome Status: Acute Assessment and Plan: A1c 6.1. Glucose reviewed on 09/27/19. Glucose well controlled. Metformin remains on hold. Continue sliding scale protocol. (5) Krzysztof's thyroiditis: Code(s): E06.3 - Autoimmune thyroiditis Status: Acute Assessment and Plan: Patient with hypothyroidism currently on levothyroxine. Her last TSH was low with elevated free T4. Repeat TSH still low at 0.11 but FT4 normal now. She has trouble converting T4 to T3 and is monitored by her field nurse case manager. Will defer to endo for further management. (6) Morbid obesity with BMI of 40.0-44.9, adult: Code(s): E66.01 - Morbid (severe) obesity due to excess calories; Z68.41 - Body mass index (BMI) 40.0-44.9, adult Status: Acute Assessment and Plan: Noted and contributing to her other issues. (7) DVT prophylaxis: Code(s): Z29.9 - Encounter for prophylactic measures, unspecified Status: Acute Assessment and Plan: [place] Subjective Date/time seen: 09/27/19 13:04 Interval history: 64yo female here for pSBO. She feels well today. Has had 3 small BMs ovenight and this morning. Up ambulating. No CP or palpitations. She did have a rash after the last SBS. Exam Narrative: Exam Narrative: AF 147/62 60 16 96% ra Gen - NARD HEENT - NGT secured with whitish mat'l in tubing Chest - CTA bilat CV - RRR S1/S2; Tele no significant dysrhythmias Abd - soft, NT/ND, +BS Ext - no pedal edema Psych - in good spirits Objective Data Vital Signs Vital Signs: Vital Signs - 24 hr 09/26/19 17:00 09/26/19 17:58 09/26/19 18:00 Temperature Pulse Rate 101 H 97 97 Respiratory Rate 18 Blood Pressure 143/81 H Pulse Oximetry 90 09/26/19 20:00 09/26/19 21:15 09/26/19 21:58 Temperature 97.6 F Pulse Rate 82 84 86 Respiratory Rate 18 Blood Pressure 154/73 H Pulse Oximetry 95 09/27/19 00:00 09/27/19 02:55 09/27/19 04:00 Temperature Pulse Rate 74 84 67 Respiratory Rate Blood Pressure Pulse Oximetry 09/27/19 06:00 09/27/19 08:00 09/27/19 08:34 Temperature 97.7 F Pulse Rate 86 94 60 Respiratory Rate 16 Blood Pressure 147/62 H Pulse Oximetry 96 Intake/Output Intake/Output: Intake & Output 09/24/19 09/25/19 09/26/19 09/27/19 23:59 23:59 23:59 23:59 Intake Total 1104 2104 Output Total 20 Balance 1084 2104 Meds/Results Medications: Active Medications Generic Name Dose Route Start Last Admin Trade Name Freq PRN Reason Stop Dose Admin Dextrose 12.5 gm 09/26/19 14:00 Dextrose 50% Syringe IV PUSH PRN
[2019-09-27] MEDS: methylPREDNISolone SOD SUCC 40 MG VIAL IV PUSH (14:48)
--- NOTE | 2019-09-27 17:35 | PC.NURSE ---
Patient refuses accuchecks. Patient states I can tell when my blood sugar gets low Dr. Garcia notified. Dr. Garcia requests that we continue to make attempts to check patient's blood sugar.
[2019-09-27] MEDS: METOPROLOL SUCCINATE EXT REL 100 MG TABCR PO (22:11)
[2019-09-28 06:00] VITALS: BP 162/97; PULSE 81; RESP 18; TEMP 36.5; O2SAT 96
[2019-09-28 06:07] LABS: Basophils Percent Auto 0.6 % (0.2-1.2); Hematocrit 37.5 % (37.0-47.0); Hemoglobin 12.1 g/dL (12.0-15.0); Lymphocytes Percent Auto 55.2 % (18.3-44.2); Mean Corpuscular HGB Conc 32.3 g/dl (32-36); Mean Corpuscular Hemoglobin 26.6 pg (26-34); Mean Corpuscular Volume 82.4 fl (80-100); Mean Platelet Volume 8.5 fl (7.4-10.4); Monocytes Absolute Auto 0.3 K/mm3 (0.1-0.6); Monocytes Percent Auto 15.3 % (2.6-8.5); Neutrophils Absolute Auto 0.5 K/mm3 (1.3-6.7); Neutrophils Percent Auto 28.9 % (45.5-73.1); Platelet Count Result 326 k/mm3 (150-375); Red Blood Count 4.55 M/mm3 (4.2-5.4); Red Cell Distribution Width 15.5 % (11.5-14.5)
[2019-09-28 06:16] LABS: White Blood Count 1.6 K/mm3 (4.5-10.0)
[2019-09-28] MEDS: SODIUM CHLORIDE 0.9% IV 1,000 ML 50 ML IV CONT (06:17)
[2019-09-28 07:29] LABS: Folic Acid 8.3 ng/mL (2.76->20)
[2019-09-28] MEDS: ENOXAPARIN 40 MG/0.4 ML SYRINGE SUB-Q (08:51)
[2019-09-28] MEDS: PANTOPRAZOLE SODIUM IV 40 MG VIAL IV PUSH (08:51)
--- NOTE | 2019-09-28 12:05 | PM.PNGS ---
Progress Note: A&P Assessment and Plan (1) Small bowel obstruction: Onset Date: ~09/25/19 Code(s): K56.609 - Unspecified intestinal obstruction, unspecified as to partial versus complete obstruction Status: Resolved Assessment and Plan: Patient small-bowel follow-through yesterday showed a stricture in the distal small bowel however all the dye got through. Transit time was 10:30 p.m. minutes. Patient feels well and has had more bowel movements. From a surgical point of view of discussed this with her she understands that if this keeps recurring we may need to consider either colonoscopy with balloon dilation if it could be reached versus laparoscopy with sort segment small bowel resection versus finger strength duraplasty. At this time she prefers to monitor this conservatively and she will stay on a low residue diet for a couple days when she goes home. Okay from surgical standpoint to be discharged today if Dr. Garcia agrees. (2) Krzysztof's thyroiditis: Onset Date: Unknown Code(s): E06.3 - Autoimmune thyroiditis Status: Acute (3) Tachycardia: Code(s): R00.0 - Tachycardia, unspecified Status: Acute (4) HTN (hypertension): Onset Date: Unknown Code(s): I10 - Essential (primary) hypertension Status: Acute (5) Insulin resistance: Onset Date: Unknown Code(s): E88.81 - Metabolic syndrome Status: Acute (6) Morbid obesity with BMI of 40.0-44.9, adult: Onset Date: Unknown Code(s): E66.01 - Morbid (severe) obesity due to excess calories; Z68.41 - Body mass index (BMI) 40.0-44.9, adult Status: Acute Assessment and Plan: Encouraged patient to carefully follow her low residue diabetic diet and try to lose some weight. Subjective Subjective Date/Time Seen: 09/28/19 12:05 Patient up and about and feels well. Tolerating clear liquids last evening in full liquids this morning after NG was taken out following the small-bowel follow-through yesterday. I did discuss with her the a stricture noted in the distal small bowel. This morning's x-ray however showed that all the dye had cleared the small bowel was in the colon. She has had multiple more stools overnight. No sign of blood in the stool. Review of Systems Constitutional: Constitutional: Reports no additional constitutional complaints ENT: Reports other (Mucous Membranes moist.) Cardiovascular: Cardiovascular: Denies dyspnea Respiratory: Respiratory: Denies pain on inspiration and Denies dyspnea Musculoskeletal: Musculoskeletal: Reports other (No calf swelling or edema) Integumentary/Breasts: Skin/Breast: Reports system reviewed and no additional complaints, except as docu Exam Const: General: cooperative, no acute distress, alert and awake Orientation/consciousness: patient oriented x3 HENMT: Mouth: Yes moist mucous membranes Neck: Neck: normal visual inspection Chest: Chest palpation & inspection: normal inspection of the chest Resp: Effort & Inspection: normal respiratory effort Auscultation: clear to auscultation bilaterally Cardio: Jugular venous distension: no JVD Rate: regular rate Rhythm: regular rhythm GI: Inspection: normal to inspection and scar GI Palp: No abdominal tenderness Percussion: Yes normal to percussion Auscultation: normal bowel sounds Rectal Exam: deferred Other: There are several scars from previous abdominal surgery, no hernias. Neuro: General: patient oriented x3 and moves all extremities Speech: normal speech Extrem: General: normal exam except as noted Psych: Mental Status: mental status grossly normal Speech and movement: Normal speech and movement present Affect: normal affect Thought content: Yes Normal thought content present Objective Data Vital Signs Vital Signs: Vital Signs - 24 hr 09/27/19 14:00 09/27/19 14:48 09/27/19 19:47 Temperature 36.4 C L Pulse Rate 92 88 88 Respiratory Rate 16
[2019-09-28 13:01] LABS: Basophils Percent Auto 0.6 % (0.2-1.2); Eosinophils Percent Auto 0.9 % (0-4.4); Hematocrit 39.5 % (37.0-47.0); Hemoglobin 12.8 g/dL (12.0-15.0); Immature Granulocyte Absolute 0.01 K/mm3 (0.00-0.031); Immature Granulocyte Percent A 0.3 % (0-0.5); Lymphocytes Percent Auto 50.3 % (18.3-44.2); Mean Corpuscular HGB Conc 32.4 g/dl (32-36); Mean Corpuscular Hemoglobin 26.9 pg (26-34); Mean Corpuscular Volume 83.2 fl (80-100); Mean Platelet Volume 8.8 fl (7.4-10.4); Monocytes Absolute Auto 0.5 K/mm3 (0.1-0.6); Neutrophils Absolute Auto 1.1 K/mm3 (1.3-6.7); Neutrophils Percent Auto 31.9 % (45.5-73.1); Platelet Count Result 349 k/mm3 (150-375); Red Blood Count 4.75 M/mm3 (4.2-5.4); Red Cell Distribution Width 15.6 % (11.5-14.5); White Blood Count 3.4 K/mm3 (4.5-10.0)
[2019-09-28 14:00] VITALS: BP 153/93; PULSE 84; RESP 16; TEMP 36.2; O2SAT 97
--- NOTE | 2019-09-28 18:31 | PM.DS ---
DS: Admitting Diagnosis Admitting Diagnosis Admitting Diagnosis: Unspecified intestinal obstruction, unspecified as to partial versus complete obstruction DS: Discharge Diagnosis Discharge Diagnosis (1) Small bowel obstruction: Onset Date: ~09/25/19 Code(s): K56.609 - Unspecified intestinal obstruction, unspecified as to partial versus complete obstruction Status: Resolved Assessment and Plan: CT scan showing early/partial small bowel obstruction with mild dilation of a loop of small bowel with transition point in the right lower quadrant. This appears to be the same transition point dating back to 06/02/2015. NGT placed. General surgery involved in her care. KUB the following day showing no dilated bowel. Minimal NG output. SBS ordered but pt has allergy to contrast so required pretreatment. SBS showing focal stricture in distal ileum with dilated upstream small bowel, consistent with partial small bowel obstruction. Note that this stricture was present on 06/02/2015. Options discussed with patient and she wishes to proceed with conservative management. Patient had NGT removed and started on diet. Diet was advanced and she tolerated this well. She was able to be discharged home on 09/28/19 (2) HTN (hypertension): Onset Date: Unknown Code(s): I10 - Essential (primary) hypertension Status: Acute Assessment and Plan: BP monitored closely. Patient with elevated BP on admission but became better controlled. Started on IV Metoprolol and converted to oral route when eating. (3) Tachycardia: Code(s): R00.0 - Tachycardia, unspecified Status: Acute Assessment and Plan: Patient was tachycardic on admission with EKG showing sinus tachycardia. This could be related to her being off her beta-beatriz. Pseudo ephedrine can also cause tachycardia. Thyroid panel noted from July which could also be contributing to her tachycardia. She also states she has a hx of elevated HR in the past. Pseudo ephedrine on hold. Started on Lopressor IV but changed back to oral when pSBO resolved. (4) Insulin resistance: Onset Date: Unknown Code(s): E88.81 - Metabolic syndrome Status: Acute Assessment and Plan: A1c 6.1. Glucose monitored closely. Glucose remained well controlled. Metformin was held. (5) Krzysztof's thyroiditis: Onset Date: Unknown Code(s): E06.3 - Autoimmune thyroiditis Status: Acute Assessment and Plan: Patient with hypothyroidism. Patient on Levothyroxine on home but can not take Synthroid because of an allergy to one of the filers. She can take Levoxyl which we did not have here. Her last TSH was low with elevated free T4. Here, repeat TSH still low at 0.11 but FT4 normal now. She is monitored closley by her manager financial. Resume Levoxyl once back at home. (6) Morbid obesity with BMI of 40.0-44.9, adult: Onset Date: Unknown Code(s): E66.01 - Morbid (severe) obesity due to excess calories; Z68.41 - Body mass index (BMI) 40.0-44.9, adult Status: Acute Assessment and Plan: BMI 41 and contributing to her other medical issues. (7) Leukopenia: Code(s): D72.819 - Decreased white blood cell count, unspecified Status: Acute Assessment and Plan: WBC normal on admission but dropped to 2500 the day prior to discharge. WBC this morning was 1600. B12 level normal. Differential mostly lymphocytes and no immature cells. Suspect related to viral illness. Repeat WBC 3400. Discussed with patient and she will talk with her doctor to repeat a CBC when they order her other lab work that she gets frequently. DS: Summary Hospital Course Reason for hospitalization: 64yo female here for abd pain and found to have pSBO. Please see H&P for details. Hospital Course: As above Time Spent with Patient Time attestation: Total time spent providing and/or coordin
== END 2019-09-28 19:01 | disposition home or self-care (01) | DRG 389 ==
LOC: ANHED 08:11 → ANH3MEDSUR 08:51
PROVIDERS: Emergency Medicine; Surgery; Admitting Provider Internal Medicine; Emergency Provider Emergency Medicine; PCP Family Medicine Adolescent Medicine; Visit Provider Internal Medicine
DX: K56.600 Partial intestinal obstruction, unspecified as to cause (principal); Z68.41 Body mass index [BMI] 40.0-44.9, adult; E66.01 Morbid (severe) obesity due to excess calories; E88.81 Metabolic syndrome and other insulin resistance; D72.819 Decreased white blood cell count, unspecified; I10 Essential (primary) hypertension; E06.3 Autoimmune thyroiditis; E78.5 Hyperlipidemia, unspecified; R00.0 Tachycardia, unspecified; Z91.041 Radiographic dye allergy status; Z79.84 Long term (current) use of oral hypoglycemic drugs
CPT/HCPCS: 36415; 74019; 74176; 74250; 80048; 80053; 81001; 82607; 82746; 83036; 83605; 83690; 84439; 84443; 84480; 85025; 93005; 96361; 96374; 99285; A9270; C9113; J1200; J1650; J1741; J2405; J2920; J7030

== ENCOUNTER 2019-12-28 13:14 | Emergency (ER) | payer MEDICARE, SELFPAY ==
[2019-12-28 13:20] VITALS: BP 149/94; PULSE 91; RESP 12; TEMP 36.6; O2SAT 99
--- NOTE | 2019-12-28 13:32 | ED.FEMALEGU ---
HPI - Female Genitourinary General Chief complaint: Urogenital-Female Stated complaint: POS UTI Time Seen by Provider: 12/28/19 13:16 Source: patient Mode of arrival: ambulatory Limitations: no limitations History of Present Illness HPI Narrative: 64 year old female presents to [facility] to [facility] with complaints of urinary frequency, irritation, and bladder pressure X 2 hours. Patient reports that she has a hx of UTIs and her symptoms feel similar. Patient denies vaginal discharge, concern for STDs, fever, body aches chills. nausea, vomiting or diarrhea. Patient is a non smoker. MD elicited complaint: UTI Onset (ago): hour(s) (2) Vaginal discharge: none Vaginal bleeding: none Urinary symptoms: Frequency Exacerbating factors: none Relieving factors: none Treatment prior to arrival: none Sexual activity: No Patient : No Related Data Home Medications Medication Instructions Recorded Confirmed levothyroxine [Levoxyl] 175 mcg PO DAILY 04/30/19 09/26/19 metoprolol succinate 50 mg 100 mg PO HS 05/22/19 09/26/19 tablet,extended release 24 hr ibuprofen 800 mg PO TID PRN 09/26/19 09/26/19 metformin 1,000 mg PO DAILY 09/26/19 09/26/19 metformin 500 mg HS 09/26/19 09/26/19 rosuvastatin 5 mg PO DAILY 09/26/19 09/26/19 Allergies Allergy/AdvReac Type Severity Reaction Status Date / Time gianna Allergy Severe HIVES/RED Verified 12/28/19 13:21 FACE Penicillins Allergy Severe ANAPHYLACTIC Verified 12/28/19 13:21 SHOCK levofloxacin Allergy Intermediate Vomiting Verified 12/28/19 13:21 penicillin G Allergy Intermediate Rash Verified 12/28/19 13:21 red dye Allergy Intermediate HIVES Verified 12/28/19 13:21 Sulfa (Sulfonamide Allergy Intermediate Rash Verified 12/28/19 13:21 Antibiotics) levothyroxine sodium Allergy Unknown Hives Verified 12/28/19 13:21 [From Synthroid] doxycycline AdvReac Diarrhea Verified 12/28/19 13:21 Contrast Media Allergy Unknown BODY RASH Uncoded 09/26/19 05:35 Review of Systems Constitutional: Constitutional: Denies chills and Denies fatigue Cardiovascular: Cardiovascular: Denies chest pain, Denies rapid heart rate and Denies radiating jaw, neck or arm pain Respiratory: Respiratory: Denies chest congestion, Denies cough, Denies dyspnea and Denies wheezing Gastrointestinal: Gastrointestinal: Denies abdominal pain, Denies diarrhea, Denies nausea and Denies vomiting Genitourinary: Genitourinary: Reports as per HPI, Denies hematuria, Reports nocturia, Denies dysuria, Denies flank pain, Denies urinary incontinence and Denies vaginal discharge Musculoskeletal: Musculoskeletal: Denies back pain, Denies joint swelling and Denies muscle cramps Endocrine: Endocrine: Denies fatigue, Denies polydipsia and Denies polyuria [facility] Past Medical History Medical History Bilateral artificial lens implant Cataracts, bilateral Endometriosis Krzysztof's thyroiditis (Unknown) History of small bowel obstruction In May of 2015. Treated at [facility] with NG tube decompression - resolved. HTN (hypertension) (Unknown) Hyperlipidemia Insulin resistance (Unknown) Migraine Rosacea Sinus problem Toe fracture, right Ureteropelvic junction calculus Wears glasses reading Surgical History Surgical History History of abdominoplasty 1992 injury to abdominal muscle in during childbirth and subsequently had an abdominoplasty for repair. History of cholecystectomy 1997 Laparoscopic common bile duct exploration for choledocholithiasis with cholecystectomy converted to open cholecystectomy with a right subcostal incision. History of ERCP Prior to CBD exploration and cholecystectomy, unsuccessful in removing all stones. History of lithotripsy December 2018. History of total hysterectomy with bilateral salpingo-oophorectomy (BSO) 2016 through a pfannenstiel incision History of tu
== END 2019-12-28 13:55 | disposition home or self-care (01) ==
PROVIDERS: Emergency Provider Nurse Practitioner Family; PCP Family Medicine Adolescent Medicine
DX: N30.00 Acute cystitis without hematuria (principal); E78.5 Hyperlipidemia, unspecified; N80.9 Endometriosis, unspecified
CPT/HCPCS: 81003; 87077; 87086; 87088; 87186; 99213; G0463

== ENCOUNTER 2020-01-18 00:27 | Observation (INO) | payer MEDICARE, SELFPAY ==
[2020-01-18] VITALS (24 sets, daily range): BP systolic 152–183; BP diastolic 79–96; PULSE 73–139; RESP 16–22; TEMP 35.9–36.6; O2SAT 96–99; BMI 39.2
--- NOTE | ~2020-01-18 | XR_ITS ---
EXAMINATION: XR chest 2V EXAM DATE: 01/18/2020 01:17 INDICATION: Chest discomfort for one day. TECHNIQUE: Frontal and lateral projections of the chest obtained and reviewed. Comparison is made to prior examination from 07/22/2019. FINDINGS: There are cholecystectomy clips. The lungs are clear. There are no pleural effusions. Th e cardiomediastinal silhouette is within normal limits. There is no pneumothorax suspected. The bon es and soft tissues are unremarkable. IMPRESSION: No acute cardiopulmonary findings. Reviewed, dictated and finalized at location A.
[2020-01-18] MEDS: METOPROLOL TARTRATE INJ 5 MG/5 ML VIAL IV PUSH (00:58)
--- NOTE | 2020-01-18 01:09 | ECG_ITS ---
Measurements Intervals [place] Rate: 123 P: ND: 0 QRS: 41 QRSD: 138 T: 5 QT: 340 QTc: 487 Interpretive Statements SINUS TACHYCARDIA RIGHT BUNDLE BRANCH BLOCK BASELINE ARTIFACT- I, II, AVR ABNORMAL ECG Electronically Signed On 01-18-2020 7:13:26 CDT by Carlito Mtz D.O.
[2020-01-18 01:15] LABS: Basophils Percent Auto 0.6 % (0.2-1.2); Eosinophils Absolute Auto 0.1 K/mm3 (0-0.3); Eosinophils Percent Auto 1.8 % (0-4.4); Hematocrit 41.4 % (37.0-47.0); Hemoglobin 13.9 g/dL (12.0-15.0); Immature Granulocyte Absolute 0.01 K/mm3 (0.00-0.031); Immature Granulocyte Percent A 0.2 % (0-0.5); Lymphocytes Absolute Auto 2.82 K/mm3 (0.9-3.2); Lymphocytes Percent Auto 56.2 % (18.3-44.2); Mean Corpuscular HGB Conc 33.6 g/dl (32-36); Mean Corpuscular Hemoglobin 27.4 pg (26-34); Mean Corpuscular Volume 81.5 fl (80-100); Monocytes Absolute Auto 0.7 K/mm3 (0.1-0.6); Monocytes Percent Auto 13.9 % (2.6-8.5); Neutrophils Absolute Auto 1.4 K/mm3 (1.3-6.7); Neutrophils Percent Auto 27.3 % (45.5-73.1); Platelet Count Result 452 k/mm3 (150-375); Red Blood Count 5.08 M/mm3 (4.2-5.4); Red Cell Distribution Width 15.9 % (11.5-14.5)
--- NOTE | 2020-01-18 01:17 | ECG_ITS ---
Measurements Intervals [place] Rate: 78 P: 24 SC: 186 QRS: -8 QRSD: 150 T: -4 QT: 411 QTc: 471 Interpretive Statements SINUS RHYTHM RIGHT BUNDLE BRANCH BLOCK ABNORMAL ECG Electronically Signed On 01-18-2020 7:13:53 CDT by Carlito Mtz D.O.
[2020-01-18 01:24] LABS: Prothrombin Time 12.7 Seconds (11.1-14.7)
[2020-01-18 01:25] LABS: Partial Thromboplastin Time 24.1 SECONDS (22.3-36.8)
[2020-01-18 01:28] LABS: Anion Gap 10 mmol/L (8-16); Blood Urea Nitrogen 10 mg/dL (7-17); Calcium 8.9 mg/dL (8.4-10.2); Carbon Dioxide 24 mmol/L (22-30); Chloride 106 mmol/L (98-107); Estimated CRCL calculation 79 ml/min; Estimated Glomerular Filt Rate > 60; Glucose 116 mg/dL (65-105); Potassium 3.5 mmol/L (3.4-5.0); Sodium 140 mmol/L (137-145)
[2020-01-18 01:40] LABS: Troponin I < 0.012 ng/mL (0.000-0.034)
--- NOTE | 2020-01-18 01:42 | ED.GENADULT ---
HPI - General Adult General Chief complaint: Abdominal Pain Stated complaint: epigastric pain/indigestion Time Seen by Provider: 01/18/20 00:39 History of Present Illness HPI narrative: Patient is a 64-year-old female who presents the ER with what she thought might be indigestion. She had been eating some tiny hotdogs for dinner and started feeling indigestion chest. Did not go away with Pepcid. She noticed that her heart rate was elevated. No overt pain or pressure. She does not feel like her heart is racing. No fevers or chills or sweats. Has had palpitations in the past have been controlled with metoprolol. She took her home metoprolol tonight prior to symptoms beginning. No sore throat/productive cough. Patient reports she had some postnasal drip after eating that caused her to vomit prior to this beginning. Related Data Home Medications Medication Instructions Recorded Confirmed levothyroxine [Levoxyl] 175 mcg PO DAILY 04/30/19 01/18/20 metoprolol succinate 50 mg 100 mg PO HS 05/22/19 01/18/20 tablet,extended release 24 hr ibuprofen 800 mg PO TID PRN 09/26/19 01/18/20 metformin 1,000 mg PO DAILY 09/26/19 01/18/20 metformin 500 mg HS 09/26/19 01/18/20 rosuvastatin 5 mg PO DAILY 09/26/19 01/18/20 cholecalciferol (vitamin D3) 100 mcg PO DAILY 01/18/20 01/18/20 [Vitamin D3] clindamycin phosphate See Rx Instructions .ROUTE 01/18/20 01/18/20 .COMPLEX PRN levocetirizine [Xyzal] 5 mg PO DAILY PRN 01/18/20 01/18/20 mecobalamin (vitamin B12) 2,500 mcg PO DAILY 01/18/20 01/18/20 metoprolol tartrate See Rx Instructions .ROUTE 01/18/20 01/18/20 .COMPLEX PRN Allergies Allergy/AdvReac Type Severity Reaction Status Date / Time gianna Allergy Severe HIVES/RED Verified 12/28/19 13:21 FACE Penicillins Allergy Severe ANAPHYLACTIC Verified 12/28/19 13:21 SHOCK levofloxacin Allergy Intermediate Vomiting Verified 12/28/19 13:21 penicillin G Allergy Intermediate Rash Verified 12/28/19 13:21 red dye Allergy Intermediate HIVES Verified 12/28/19 13:21 Sulfa (Sulfonamide Allergy Intermediate Rash Verified 12/28/19 13:21 Antibiotics) levothyroxine sodium Allergy Unknown Hives Verified 12/28/19 13:21 [From Synthroid] doxycycline AdvReac Diarrhea Verified 12/28/19 13:21 Contrast Media Allergy Unknown BODY RASH Uncoded 09/26/19 05:35 Review of Systems Review of Systems: All systems reviewed & are unremarkable except as noted in HPI and below Constitutional: Constitutional: Denies chills, Denies fever(s) and Denies weakness ENT: Reports nasal congestion and Denies sore throat Cardiovascular: Cardiovascular: Denies chest pain, Reports rapid heart rate and Denies radiating jaw, neck or arm pain Respiratory: Respiratory: Denies cough and Denies dyspnea Gastrointestinal: Gastrointestinal: Reports abdominal pain, Denies nausea and Reports vomiting PMFSH Past Medical History Medical History Bilateral artificial lens implant Cataracts, bilateral Endometriosis Krzysztof's thyroiditis (Unknown) History of small bowel obstruction In May of 2015. Treated at [facility] with NG tube decompression - resolved. HTN (hypertension) (Unknown) Hyperlipidemia Insulin resistance (Unknown) Migraine Rosacea Sinus problem Toe fracture, right Ureteropelvic junction calculus Wears glasses reading Surgical History Surgical History History of abdominoplasty 1992 injury to abdominal muscle in during childbirth and subsequently had an abdominoplasty for repair. History of cholecystectomy 1997 Laparoscopic common bile duct exploration for choledocholithiasis with cholecystectomy converted to open cholecystectomy with a right subcostal incision. History of ERCP Prior to CBD exploration and cholecystectomy, unsuccessful in removing all stones. History of lithotripsy December 2018. History of total hysterectomy
[2020-01-18 02:17] LABS: Thyroid Stimulating Hormone Reflex 0.146 uIU/mL (0.465-4.68)
[2020-01-18 03:00] LABS: Free T4 Free Thyroxine Reflex 2.44 ng/dL (0.78-2.19)
[2020-01-18 04:11] LABS: Troponin I 0.025 ng/mL (0.000-0.034)
--- NOTE | 2020-01-18 05:01 | PM.IMHP ---
H&P: HPI History of Present Illness Date/Time: 01/18/20 05:01 Chief complaint: flutter with rvr, chest pain Narrative: This is a 64-year-old morbidly obese female with known Krzysztof's thyroiditis, hyperinsulinemia, and hypertension among other comorbidities who presented to the hospital [facility] with chest discomfort which she believes was indigestion. The patient describes getting Endocrine spells about 3 to 4 times a year which previously occurred monthly and or characterized by a racing heart as well as elevated blood pressure. Tonight she believe she may have had 1 of the spells as her blood pressure did increase in her heart rate went up although she felt like she had indigestion after eating some tiny hot dogs for dinner with her . She described her chest discomfort as burning in quality and radiating towards her left arm. The combination of the chest discomfort with left arm discomfort is what led her to come to the hospital as this is not normal when she has her endocrine spells. She took Pepcid which did not help with her symptoms. She did take her metoprolol prior to coming to the hospital. The patient does not have any previous history of coronary artery disease or arrhythmias. On arrival to the emergency room this evening the patient was any rapid atrial flutter which did convert back to a sinus rhythm after she was treated with IV Lopressor. The patient's troponin mildly increased although still remained in the normal range. On further questioning she denies any other significant symptoms including fever, chills, nausea, vomiting, shortness of breath, sore throat, cough, abdominal pain, dysuria, hematuria, diarrhea, rectal bleeding, lower extremity swelling, or focal neurological deficits. ER provider has consulted Cardiology, Dr. Andrew. We been asked to admit the patient to the hospital for cardiac rule out. My encounter with the patient she denies any symptoms at this time as her chest discomfort has resolved completely. Review of Systems Review of Systems: All systems reviewed & are unremarkable except as noted in HPI and below PMFSH Past Medical History Medical History Bilateral artificial lens implant Cataracts, bilateral Endometriosis Krzysztof's thyroiditis (Unknown) History of small bowel obstruction In May of 2015. Treated at [facility] with NG tube decompression - resolved. HTN (hypertension) (Unknown) Hyperlipidemia Insulin resistance (Unknown) Migraine Rosacea Sinus problem Toe fracture, right Ureteropelvic junction calculus Wears glasses reading Surgical History Surgical History History of abdominoplasty 1992 injury to abdominal muscle in during childbirth and subsequently had an abdominoplasty for repair. History of cholecystectomy 1997 Laparoscopic common bile duct exploration for choledocholithiasis with cholecystectomy converted to open cholecystectomy with a right subcostal incision. History of ERCP Prior to CBD exploration and cholecystectomy, unsuccessful in removing all stones. History of lithotripsy December 2018. History of total hysterectomy with bilateral salpingo-oophorectomy (BSO) 2016 through a pfannenstiel incision History of tubal ligation Laparoscopic tubal ligation History of ventral hernia repair Incisional hernia repair from previous trochar site incision. Performed as an open hernia repair with mesh at [place] in 2002. Family History Family History Father Family history of elevated blood lipids Family history of diabetes mellitus in first degree relative Heart disease Sibling Family history of elevated blood lipids Mother , from ruptured AAA Family history of coronary artery disease AAA (abdominal aortic aneurysm, ruptured) Social History Social History (Reviewed
--- NOTE | 2020-01-18 05:14 | ECHO_ITS ---
Patient Info Name: Diya Vazquez Age: 64 years : 1955 Gender: Female Ht: 64 in Wt: 221 lbs BSA: 2.18 m2 HR: 92 bpm BP: 182 / 94 mmHg Heart Rhythm: Sinus Rhythm Technical Quality: Good Exam Date: 01/18/2020 11:09 AM Exam Location: [facility] Pulmonary Patient Status: Outpatient Admit Date: 01/18/2020 Staff Ordering Physician: Nii Villalpando MD Deckhand Maintenance: Adelfo Urbina, KINGSLEY, RT Attending Provider: Nii Villalpando MD Referring Physician: Irasema YANES; Exam Type: CA echo dop color flow w con Study Info Indications I45.89 - Other specified conduction disorders Complete two-dimensional, color flow and Doppler transthoracic echocardiogram is performed with contrast to opacify the left ventricle and to improve the deliniation of the left ventricle endocardial borders. Summary 1. Left ventricular systolic function is hyperdynamic, estimated at >70%. 2. There is no increased left ventricular wall thickness. 3. The left ventricular diastolic function is grade I diastolic dysfunction. 4. There is no aortic valve stenosis. 5. There is trace mitral valve regurgitation. 6. There is trace tricuspid valve regurgitation. 7. Unable to estimate PA systolic pressure due to poor spectral resolution of tricuspid regurgitant jet velocity. 8. Technically difficult study with limited views. Left Ventricle Left ventricular chamber dimension is normal. Left ventricular systolic function is hyperdynamic, estimated at >70%. There is no increased left ventricular wall thickness. The left ventricular diastolic function is grade I diastolic dysfunction. Right Ventricle Right ventricular chamber dimension is normal. Right ventricular systolic function is normal. Left Atria Left atrial chamber dimension is normal. Right Atria Right atrial chamber dimension is normal. Aortic Valve The aortic valve is not well visualized. There is no aortic valve stenosis. There is no aortic valve regurgitation. Pulmonic Valve The pulmonic valve is not well visualized. Mitral Valve The mitral valve has normal leaflets. There is trace mitral valve regurgitation. The mitral valve annulus is mildly calcified. Tricuspid Valve The tricuspid valve leaflets are normal. There is trace tricuspid valve regurgitation. Unable to estimate PA systolic pressure due to poor spectral resolution of tricuspid regurgitant jet velocity. Pericardium/Pleural The pericardium appears normal. There is no pericardial effusion. Inferior Vena Cava Normal inferior vena cava with >50% collapse upon inspiration consistent with normal right atrial pressure, 5 mmHg. Aorta The aortic root size at the sinus of Valsalva is normal. Left Ventricular Outflow Tract Name Value Normal LVOT 2D LVOT Diameter 1.96 cm LVOT Doppler LVOT Peak Gradient 5 mmHg LVOT Mean Gradient 2 mmHg LVOT VTI 18.35 cm LVOT VTI/AV VTI Ratio 1.07 LVOT Stroke Volume 55.11 ml LVOT CO 5.02 l/min
--- NOTE | 2020-01-18 06:01 | PHAR ---
PHARMACY VERIFIED HOME MED LEVOXYL 175 MCG (BRAND NAME) TAKE 1 TABLET BY MOUTH ONCE DAILY BEFORE BREAKFAST EVERY DAY EXCEPT WEDNESDAY TAKE 2 TABLETS
[2020-01-18] MEDS: hydrALAZINE HCL 20 MG/ML VIAL 10 MG IV PUSH (06:36)
[2020-01-18] MEDS: NITROGLYCERIN SL 0.4 MG TABLET SUBLINGUAL (07:17)
--- NOTE | 2020-01-18 07:18 | ECG_ITS ---
Measurements Intervals [place] Rate: 94 P: 22 AL: 183 QRS: -7 QRSD: 144 T: 0 QT: 396 QTc: 498 Interpretive Statements SINUS RHYTHM RIGHT BUNDLE BRANCH BLOCK ABNORMAL ECG Electronically Signed On 01-18-2020 7:37:54 CDT by Carlito Mtz D.O.
--- NOTE | 2020-01-18 07:55 | ADMIMU ---
This patient, Diya Vazquez, was admitted to IMU status, and placed in IMU Room 213-01 at 0500. Patient/family oriented to hospital policies and general routines including ID bracelet, bed and alarms, visiting hours, pain management, procedures, bathroom and other care routines, personal items, smoking policy, room service/diet, and visiting hours. Valuables list has been completed. Information on how to activate the Rapid Response Team has been discussed. Patient/Family are encouraged to report perceived risks to care and to ask questions if they do not understand what they are told or what they should do.
[2020-01-18] MEDS: MORPHINE SULFATE (*CRX) 4 MG/ML INJ IV PUSH (08:44)
[2020-01-18] MEDS: LORATADINE 10 MG TABLET PO (08:45)
[2020-01-18] MEDS: POTASSIUM CHLORIDE 20 MEQ TABLET 40 MEQ PO (10:13)
--- NOTE | 2020-01-18 10:53 | PM.CNCAR ---
Assessment and Plan Assessment and plan (1) Chest pain: Code(s): R07.9 - Chest pain, unspecified Status: Acute Assessment and Plan: atypical, however, concerning given patient's risk factors, persistence and slight troponin elevation albeit negative in the indeterminate range initially. Obtained 3rd subsequent which is elevated 0.35 concerning for mild myocardial ischemia possible NSTEMI. Although this may be related to tachycardia and associated with uncontrolled hypertension cannot exclude underlying CAD. Depending upon patient's clinical course discuss ischemic evaluation either invasive versus noninvasive. Will repeat troponin this afternoon in if further increased or recurrent chest pain initiate systemic anticoagulation. Further options including invasive angiography will be discussed in this case and if agreed upon pretreatment with steroids and antihistamines for history of contrast allergy would be required. 2D Echocardiogram. ASA 81mg daily. D/C NSAIDs. (2) Tachycardia: Code(s): R00.0 - Tachycardia, unspecified Status: Acute Assessment and Plan: Control with beta-beatriz therapy. I do not see evidence of atrial flutter, atrial fibrillation or other SVT thus far. She had one 6 beat run a wide complex tachycardia probable NSVT, asymptomatic. If atrial flutter or atrial fibrillation identified systemic anticoagulation would be advised. This potentiality was discussed with the patient in detail, however, no indication long-term anticoagulation at this time as I do not see evidence of atrial flutter. (3) Krzysztof's thyroiditis: Onset Date: Unknown Code(s): E06.3 - Autoimmune thyroiditis Status: Chronic Assessment and Plan: per primary service. TSH low at 0.14 (4) Uncontrolled hypertension: Code(s): I10 - Essential (primary) hypertension Status: Acute Assessment and Plan: Adjustment in medical therapy for BP control. (5) Hyperlipidemia: Qualifiers: Hyperlipidemia type: unspecified Qualified Code(s): E78.5 - Hyperlipidemia, unspecified Code(s): E78.5 - Hyperlipidemia, unspecified Status: Chronic Assessment and Plan: continue rosuvastatin. Check lipid panel. (6) Insulin resistance: Onset Date: Unknown Code(s): E88.81 - Metabolic syndrome Status: Chronic Assessment and Plan: Per primary service. History of Present Illness History of Present Illness Consult date/time: date of service: 01/18/20 10:53 cardiology consultation at the request of Dr. Villalpando for our opinion regarding complaints of chest pain and tachycardia. Requesting physician: Nii Villalpando MD Consult reason: chest pain and Other ( Tachycardia) Reason For Visit: flutter with rvr, chest pain Narrative: patient is a 64-year-old female with past medical history significant for hypertension, Krzysztof's thyroiditis, diabetes mellitus, obesity, and history of Endocrine spells where she experiences rapid heart rate and elevated blood pressure. She has been experiencing these over the past 20 years which had been previously associated her cycles every 28 days. now that she is postmenopausal status post hysterectomy she had not experienced these episodes nearly as frequently but notes a subsequent reduction frequency with changing metoprolol to Toprol XL. Patient reports in the past her tachycardia would respond very nicely to metoprolol tartrate. She presented to the ER tachycardic reported as atrial flutter in the ER for which she was given IV metoprolol with good control of her heart rate. Per my review of available telemetry and 12 lead EKG's she was in sinus tachycardia with a RBBB (known, chronic) without clear evidence of atrial flutter. she reports no history of diagnosed SVT despite workup over many years. She denies near-syncope or syncope. Patient states she had just finished eating dinner c
[2020-01-18] MEDS: PERFLUTREN LIPID MICROSPHERES 1.5 ML VIAL DILUTED TO 10 ML TOTAL VOLUME IV PUSH (11:33)
[2020-01-18] MEDS: ASPIRIN 325 MG TABLET PO (14:04)
--- NOTE | 2020-01-18 16:35 | PM.IMPN ---
Progress Note: A&P Assessment and Plan (1) Atrial flutter with rapid ventricular response: Code(s): I48.92 - Unspecified atrial flutter Status: Acute Assessment and Plan: May be secondary to underlying thyroiditis. Currently resolved. check TSH reflex T4. echocardiogram. appreciate cardiology input. 01/18/20 16:35 patient is 64-year-old female with history of diabetes, hypertension, Krzysztof's thyroiditis, and endocrine spells in which patient develops tachycardia and elevated blood pressure, this episodes are going on for last 20 yrs on and off use to be synchronized with her menses every 28 day, and after the hysterectomy there is less frequency and apparently patient had a similar episode with tachycardia and elevated blood presented emergency depart for further evaluation initially in the ER it was thought the patient had atrial flutter and was given IV metoprolol which did improve her rate, the telemetry strips were reviewed by the Cardiology did not suspect atrial flutter rather patient had SVT with right bundle branch block which is chronic, however patient has elevated 3 tropes and the 4th one is significant elevated, head athletic trainer recommending cardiac catheterization which is scheduled for tomorrow, patient is allergic to contrast and will be pretreated with steroid and Benadryl, will follow-up on the cath and further recommendation to follow (2) Chest pain: Qualifiers: Chest pain type: unspecified Qualified Code(s): R07.9 - Chest pain, unspecified Code(s): R07.9 - Chest pain, unspecified Status: Acute Assessment and Plan: rule out acute coronary syndrome - patient has been admitted for observation to IMU, telemetry, monitor for chest discomfort, nitroglycerin p.r.n. for any chest discomfort, trend troponin. Cardiology has been consulted by ER provider. Appreciate cardiology recommendations. (3) HTN (hypertension): Onset Date: Unknown Qualifiers: Hypertension type: unspecified Qualified Code(s): I10 - Essential (primary) hypertension Code(s): I10 - Essential (primary) hypertension Status: Chronic Assessment and Plan: Elevated. Continue the patient's home metoprolol and we will administer p.r.n. IV antihypertensives as needed. (4) Krzysztof's thyroiditis: Onset Date: Unknown Code(s): E06.3 - Autoimmune thyroiditis Status: Chronic Assessment and Plan: Check TSH reflex T4. Continue Levoxyl in a.m. (5) Insulin resistance: Onset Date: Unknown Code(s): E88.81 - Metabolic syndrome Status: Chronic Assessment and Plan: continue metformin (6) Hyperlipidemia: Qualifiers: Hyperlipidemia type: unspecified Qualified Code(s): E78.5 - Hyperlipidemia, unspecified Code(s): E78.5 - Hyperlipidemia, unspecified Status: Chronic Assessment and Plan: continue rosuvastatin Subjective Date/time seen: 01/18/20 16:35 patient is 64-year-old female with history of diabetes, hypertension, Krzysztof's thyroiditis, and endocrine spells in which patient develops tachycardia and elevated blood pressure, this episodes are going on for last 20 yrs on and off use to be synchronized with her menses every 28 day, and after the hysterectomy there is less frequency and apparently patient had a similar episode with tachycardia and elevated blood presented emergency depart for further evaluation initially in the ER it was thought the patient had atrial flutter and was given IV metoprolol which did improve her rate, the telemetry strips were reviewed by the Cardiology did not suspect atrial flutter rather patient had SVT with right bundle branch block which is chronic, however patient has elevated 3 tropes and the 4th one is significant elevated, head athletic trainer recommending cardiac catheterization which is scheduled for tomorrow, patient is allergic to contrast and will be pretreated
[2020-01-18] MEDS: ENOXAPARIN 100 MG/ML SYRINGE SUB-Q (18:07)
[2020-01-18] MEDS: predniSONE 40 MG, predniSONE 10 MG 50 MG PO (19:02)
[2020-01-18] MEDS: METOPROLOL SUCCINATE EXT REL 100 MG TABCR PO (20:24)
[2020-01-19] VITALS (19 sets, daily range): BP systolic 127–162; BP diastolic 54–86; PULSE 67–119; RESP 8–22; TEMP 36.1–36.8; O2SAT 95–98
[2020-01-19] MEDS: predniSONE 40 MG, predniSONE 10 MG 50 MG PO ×2 (01:41→07:32)
[2020-01-19 05:08] LABS: Hematocrit 37.6 % (37.0-47.0); Hemoglobin 12.5 g/dL (12.0-15.0); Mean Corpuscular HGB Conc 33.2 g/dl (32-36); Mean Corpuscular Hemoglobin 26.8 pg (26-34); Mean Corpuscular Volume 80.5 fl (80-100); Mean Platelet Volume 8.9 fl (7.4-10.4); Platelet Count Result 395 k/mm3 (150-375); Red Blood Count 4.67 M/mm3 (4.2-5.4); Red Cell Distribution Width 16.1 % (11.5-14.5)
[2020-01-19 05:21] LABS: White Blood Count 1.1 K/mm3 (4.5-10.0)
[2020-01-19 05:28] LABS: Anion Gap 7 mmol/L (8-16); Blood Urea Nitrogen 7 mg/dL (7-17); Calcium 9.2 mg/dL (8.4-10.2); Carbon Dioxide 25 mmol/L (22-30); Chloride 108 mmol/L (98-107); Estimated CRCL calculation 89 ml/min; Estimated Glomerular Filt Rate > 60; Glucose 162 mg/dL (65-105); Potassium 4.2 mmol/L (3.4-5.0); Sodium 140 mmol/L (137-145)
[2020-01-19 05:45] LABS: Basophils Percent Auto 0.9 % (0.2-1.2); Hematocrit 37.9 % (37.0-47.0); Hemoglobin 12.6 g/dL (12.0-15.0); Lymphocytes Absolute Auto 0.65 K/mm3 (0.9-3.2); Lymphocytes Percent Auto 58.6 % (18.3-44.2); Mean Corpuscular HGB Conc 33.2 g/dl (32-36); Mean Corpuscular Volume 81.3 fl (80-100); Mean Platelet Volume 8.9 fl (7.4-10.4); Monocytes Percent Auto 1.8 % (2.6-8.5); Neutrophils Absolute Auto 0.4 K/mm3 (1.3-6.7); Neutrophils Percent Auto 38.7 % (45.5-73.1); Platelet Count Result 404 k/mm3 (150-375); Red Blood Count 4.66 M/mm3 (4.2-5.4); Red Cell Distribution Width 16.2 % (11.5-14.5)
[2020-01-19 05:47] LABS: White Blood Count 1.1 K/mm3 (4.5-10.0)
[2020-01-19] MEDS: diphenhydrAMINE HCl CAP 25 MG CAPSULE 50 MG PO (07:32)
[2020-01-19] MEDS: ASPIRIN 325 MG TABLET PO (07:52)
--- NOTE | 2020-01-19 08:41 | WPDMODSED ---
Moderate Sedation Note-Pt Data Patient Data Diagnosis: NSTEMI, CP Present Complaint: none Procedure to be performed/Plan: Left heart catheterization with selective left and right coronary angiography with left ventriculography and hemodynamics Allergies Allergy/AdvReac Type Severity Reaction Status Date / Time gianna Allergy Severe HIVES/RED Verified 12/28/19 13:21 FACE Penicillins Allergy Severe ANAPHYLACTIC Verified 12/28/19 13:21 SHOCK levofloxacin Allergy Intermediate Vomiting Verified 12/28/19 13:21 penicillin G Allergy Intermediate Rash Verified 12/28/19 13:21 red dye Allergy Intermediate HIVES Verified 12/28/19 13:21 Sulfa (Sulfonamide Allergy Intermediate Rash Verified 12/28/19 13:21 Antibiotics) levothyroxine sodium Allergy Unknown Hives Verified 12/28/19 13:21 [From Synthroid] doxycycline AdvReac Diarrhea Verified 12/28/19 13:21 Contrast Media Allergy Unknown BODY RASH Uncoded 09/26/19 05:35 Home Medications Medication Instructions Recorded Confirmed Type levothyroxine [Levoxyl] 175 mcg PO DAILY 04/30/19 01/18/20 History metoprolol succinate 50 mg 100 mg PO HS 05/22/19 01/18/20 History tablet,extended release 24 hr estradiol 1 mg tablet 1 mg PO DAILY #90 tablet 08/28/19 01/18/20 Rx ibuprofen 800 mg PO TID PRN 09/26/19 01/18/20 History metformin 1,000 mg PO DAILY 09/26/19 01/18/20 History metformin 500 mg HS 09/26/19 01/18/20 History rosuvastatin 5 mg PO DAILY 09/26/19 01/18/20 History cholecalciferol (vitamin D3) 100 mcg PO DAILY 01/18/20 01/18/20 History [Vitamin D3] clindamycin phosphate See Rx Instructions .ROUTE 01/18/20 01/18/20 History .COMPLEX PRN levocetirizine [Xyzal] 5 mg PO DAILY PRN 01/18/20 01/18/20 History mecobalamin (vitamin B12) 2,500 mcg PO DAILY 01/18/20 01/18/20 History metoprolol tartrate See Rx Instructions .ROUTE 01/18/20 01/18/20 History .COMPLEX PRN Current Medications: Active Medications Aspirin (Aspirin) 325 mg PO DAILY@0800 RAJAN Last Admin: 01/19/20 07:52 Dose: 325 mg Documented by: Metoprolol Succinate (Toprol Xl) 100 mg PO HS [facility] Last Admin: 01/18/20 20:24 Dose: 100 mg Documented by: Morphine Sulfate (Morphine Sulfate Inj (*Crx)) 4 mg IV PUSH Q2H PRN PRN Reason: Pain Rated 7-10 Last Admin: 01/18/20 08:44 Dose: 4 mg Documented by: Nitroglycerin (Nitrostat Subl 0.4 Mg (1/150)) 0.4 mg SUBLINGUAL Q5MIN PRN PRN Reason: Chest Pain Last Admin: 01/18/20 07:17 Dose: 0.4 mg Documented by: Ondansetron HCl (Zofran Inj) 4 mg IV PUSH Q4H PRN PRN Reason: Nausea Sedation/Anesthesia: No previous sedation/anesthesia problems (including family history). [facility] Past Medical History Medical History Bilateral artificial lens implant Cataracts, bilateral Endometriosis Krzysztof's thyroiditis (Unknown) History of small bowel obstruction In May of 2015. Treated at [facility] with NG tube decompression - resolved. HTN (hypertension) (Unknown) Hyperlipidemia Insulin resistance (Unknown) Migraine Rosacea Sinus problem Toe fracture, right Ureteropelvic junction calculus Wears glasses reading Surgical History Surgical History History of abdominoplasty 1992 injury to abdominal muscle in during childbirth and subsequently had an abdominoplasty for repair. History of cholecystectomy 1997 Laparoscopic common bile duct exploration for choledocholithiasis with cholecystectomy converted to open cholecystectomy with a right subcostal incision. History of ERCP Prior to CBD exploration and cholecystectomy, unsuccessful in removing all stones. History of lithotripsy December 2018. History of total hysterectomy with bilateral salpingo-oophorectomy (BSO) 2016 through a pfannenstiel incision History of tubal ligation Laparoscopic tubal ligation History of ventral hernia repair Incisional hernia repair from previous trochar
--- NOTE | 2020-01-19 08:44 | PM.PROC ---
Procedure Note - Detailed Date of procedure: 01/19/20 Pre-op diagnosis: flutter with rvr, chest pain NSTEMI, CP Procedure performed: left heart catheterization with selective left and right coronary angiography with left ventricular hemodynamics Description of procedure: BRIEF HISTORY OF PRESENT ILLNESS: Patient is a pleasant 64-year-old white female hypertension, DM, thyroiditis, obesity who presents with c/o CP, tachycardia, and uncontrolled HTN with elevated Trop >1.0 concerning for NSTEMI referred for left heart catheterization for delineation of her coronary anatomy. PROCEDURES PERFORMED: 1. Left heart catheterization 2. Selective left and right coronary angiography 3. Left ventricular hemodynamics 4. Moderate/conscious sedation administration 5. Selective right femoral angiography 6. 6-Fr Angioseal vascular closure device deployment CATHETERS UTILIZED: Left coronary system- 5 Mongolian JL4 catheter Right coronary system- 5 Mongolian JR4 catheter Left ventriculography and hemodynamics- 5 Mongolian angled pigtail catheter PROCEDURE IN DETAIL: After verbal and written informed consent was obtained the patient, risks, benefits, and alternatives explained in detail the patient agreed to proceed with the plan of care as outlined above. The patient was subsequently brought to the cardiac catheterization lab, placed on the cardiac catheterization table, and prepped and draped in the usual sterile fashion. Utilizing approximately 15cc of 1% subcutaneous Lidocaine, the right groin was then locally anesthetized. Utilizing the modified Seldinger technique, a 5 Mongolian arterial vascular access sheath was inserted in the right common femoral artery easily and without complications. Through this access, coronary angiography was subsequently obtained in multiple standard re-projections. Following this, a 5 Mongolian angled pigtail catheter was advanced retrograde across aortic valve into the cavity of the left ventricle. Left ventriculography was performed and pullback across aortic valve was subsequently recorded. The vascular access sheath and angiographic catheters were flushed before and after catheter exchanges. At the conclusion of the diagnostic portion of the procedure, all angiographic guidewires and catheters were removed and the 5 Mongolian arterial vascular access sheath was then pulled and satisfactory hemostasis was achieved using manual compression. There no complications noted at the conclusion of the diagnostic portion of the study. Of note, due to reported contrast allergy, patient was pretreated per protocol with prednisone and antihistamines beginning yesterday and this AM. No issues during or immediately post catheterization were noted. MODERATE SEDATION/ANESTHESIA ADMINISTRATION: Patient reports no prior problems with sedation/anesthesia. Please see pre-sedation noted for physical examination documentation. Sedation start time was 0900 and end time was 0945 for a total intra-service/procedure face-face time of 45 minutes. A total of 1 mg intravenous Versed and a total of 50 mcg intravenous Fentanyl was administered for moderate sedation. Moderate sedation was administered by qualified/certified observer Thais Abraham RN under my supervision with intra-procedure [id number] observation and management throughout the entirety of the procedure. There were no other issues or complications and patient tolerated the procedure well. See post-anesthesia documentation. Anesthesia: local and other ( Moderate/conscious sedation) Surgeon: Rene Diamond MD Drains: No Packing: No Pathology: none sent Complications: No immediate complications Condition: stable Disposition: floor Findings: CORONARY ANGIOGRAPHY: The LEFT MAIN arose from the left coronary cusp then bifurcated into the left anterior descending artery and circumflex coronary artery. Slight distal disease 10% with stenosis most prominent in ostial LAD. LEFT ANTERIOR DESCENDING AR
--- NOTE | 2020-01-19 11:24 | PC.NURSE ---
Pt returned from pathology laboratory technologist. Groin site dry, no buit, no bleeding, pedal pulse 3+, foot is warm.
[2020-01-19 11:59] LABS: Cholesterol 150 mg/dL (0-200); HDL Direct 42 mg/dL; Triglycerides 161 mg/dL (<150)
[2020-01-19 12:10] LABS: LDL Cholesterol Direct 80 mg/dL
[2020-01-19] MEDS: CLOPIDOGREL BISULFATE 75 MG TABLET PO (14:24)
--- NOTE | 2020-01-19 17:13 | PM.DS ---
DS: Admitting Diagnosis Admitting Diagnosis Admitting Diagnosis: flutter with rvr, chest pain DS: Discharge Diagnosis Discharge Diagnosis (1) Atrial flutter with rapid ventricular response: Code(s): I48.92 - Unspecified atrial flutter Status: Acute Assessment and Plan: May be secondary to underlying thyroiditis. Currently resolved. check TSH reflex T4. echocardiogram. appreciate cardiology input. 01/18/20 16:35 patient is 64-year-old female with history of diabetes, hypertension, Krzysztof's thyroiditis, and endocrine spells in which patient develops tachycardia and elevated blood pressure, this episodes are going on for last 20 yrs on and off use to be synchronized with her menses every 28 day, and after the hysterectomy there is less frequency and apparently patient had a similar episode with tachycardia and elevated blood presented emergency depart for further evaluation initially in the ER it was thought the patient had atrial flutter and was given IV metoprolol which did improve her rate, the telemetry strips were reviewed by the Cardiology did not suspect atrial flutter rather patient had SVT with right bundle branch block which is chronic, however patient has elevated 3 tropes and the 4th one is significant elevated, conference services director recommending cardiac catheterization which is scheduled for tomorrow, patient is allergic to contrast and will be pretreated with steroid and Benadryl, will follow-up on the cath and further recommendation to follow (2) Chest pain: Qualifiers: Chest pain type: unspecified Qualified Code(s): R07.9 - Chest pain, unspecified Code(s): R07.9 - Chest pain, unspecified Status: Acute Assessment and Plan: rule out acute coronary syndrome - patient has been admitted for observation to IMU, telemetry, monitor for chest discomfort, nitroglycerin p.r.n. for any chest discomfort, trend troponin. Cardiology has been consulted by ER provider. Appreciate cardiology recommendations. (3) HTN (hypertension): Onset Date: Unknown Qualifiers: Hypertension type: unspecified Qualified Code(s): I10 - Essential (primary) hypertension Code(s): I10 - Essential (primary) hypertension Status: Chronic Assessment and Plan: Elevated. Continue the patient's home metoprolol and we will administer p.r.n. IV antihypertensives as needed. (4) Krzysztof's thyroiditis: Onset Date: Unknown Code(s): E06.3 - Autoimmune thyroiditis Status: Chronic Assessment and Plan: Check TSH reflex T4. Continue Levoxyl in a.m. (5) Insulin resistance: Onset Date: Unknown Code(s): E88.81 - Metabolic syndrome Status: Chronic Assessment and Plan: continue metformin (6) Hyperlipidemia: Qualifiers: Hyperlipidemia type: unspecified Qualified Code(s): E78.5 - Hyperlipidemia, unspecified Code(s): E78.5 - Hyperlipidemia, unspecified Status: Chronic Assessment and Plan: continue rosuvastatin DS: Summary Hospital Course Reason for hospitalization: Chief complaint: flutter with rvr, chest pain Narrative: This is a 64-year-old morbidly obese female with known Krzysztof's thyroiditis, hyperinsulinemia, and hypertension among other comorbidities who presented to the hospital tonmandeep with chest discomfort which she believes was indigestion. The patient describes getting Endocrine spells about 3 to 4 times a year which previously occurred monthly and or characterized by a racing heart as well as elevated blood pressure. Tonight she believe she may have had 1 of the spells as her blood pressure did increase in her heart rate went up although she felt like she had indigestion after eating some tiny hot dogs for dinner with her . She described her chest discomfort as burning in quality and radiating towards her left arm. The combination of the chest discomfort with le
== END 2020-01-19 18:35 | disposition home or self-care (01) ==
LOC: ANHED 01:15 → ANHIMU 06:45
PROVIDERS: Internal Medicine; Internal Medicine Cardiovascular Disease; Admitting Provider Family Medicine; Emergency Provider Emergency Medicine; PCP Family Medicine Adolescent Medicine; Visit Provider Family Medicine
PROC: 4A023N7 Measurement of Cardiac Sampling and Pressure, Left Heart, Percutaneous Approach (ICD-10-PCS; CPT 93452; principal; 2020-01-19 08:30)
DX: I48.92 Unspecified atrial flutter (principal); R07.9 Chest pain, unspecified; R00.0 Tachycardia, unspecified; E66.01 Morbid (severe) obesity due to excess calories; E06.3 Autoimmune thyroiditis; E88.81 Metabolic syndrome and other insulin resistance; E78.5 Hyperlipidemia, unspecified; E11.9 Type 2 diabetes mellitus without complications; I10 Essential (primary) hypertension; R79.89 Other specified abnormal findings of blood chemistry; Z68.41 Body mass index [BMI] 40.0-44.9, adult; Z79.4 Long term (current) use of insulin
CPT/HCPCS: 36415; 71046; 80048; 80061; 84439; 84443; 84484; 85025; 85027; 85610; 85730; 93005; 93458; 96372; 96374; 96375; 99285; A9270; C1760; C1887; C1894; C8929; G0269; G0378; J0360; J1644; J1650; J2250; J2270; J3010; J7040; J7512; Q9957

== ENCOUNTER 2020-08-18 19:36 | Emergency (ER) | payer MEDICARE, SELFPAY ==
--- NOTE | ~2020-08-18 | XR_ITS ---
EXAMINATION: XR chest 2V DATE: 08/18/2020 20:24 INDICATION: Palpitations. TECHNIQUE: PA and lateral views of the chest were obtained. COMPARISON: Chest radiograph dated 01/18/2020 FINDINGS: The lungs remain clear with no focal airspace opacities, pulmonary edema, pleural effusion or pneumot horax. The cardiomediastinal silhouette is normal. Mild thoracolumbar levoscoliosis with moderate spo ndylosis. Cholecystectomy clips in right upper quadrant. IMPRESSION: 1. No acute cardiopulmonary disease. Reviewed, dictated and finalized at location A.
[2020-08-18 19:49] VITALS: BP 189/98; PULSE 101; RESP 18; TEMP 36.5; O2SAT 99
--- NOTE | 2020-08-18 19:51 | ECG_ITS ---
Measurements Intervals [place] Rate: 99 P: 39 PA: 144 QRS: -40 QRSD: 135 T: 15 QT: 364 QTc: 467 Interpretive Statements SINUS RHYTHM WITH SINUS ARRHYTHMIA ATRIAL PREMATURE COMPLEXES LEFT AXIS DEVIATION RIGHT BUNDLE BRANCH BLOCK BASELINE ARTIFACT- II, III, AVF ABNORMAL ECG Electronically Signed On 08-19-2020 7:35:12 CDT by Carlito Mtz D.O.
[2020-08-18 20:01] LABS: Basophils Percent Auto 0.8 % (0.2-1.2); Eosinophils Absolute Auto 0.1 K/mm3 (0-0.3); Eosinophils Percent Auto 3.3 % (0-4.4); Hematocrit 41.2 % (37.0-47.0); Lymphocytes Absolute Auto 2.01 K/mm3 (0.9-3.2); Lymphocytes Percent Auto 51.7 % (18.3-44.2); Mean Corpuscular HGB Conc 31.6 g/dl (32-36); Mean Corpuscular Hemoglobin 26.2 pg (26-34); Mean Corpuscular Volume 82.9 fl (80-100); Mean Platelet Volume 8.4 fl (7.4-10.4); Monocytes Absolute Auto 0.5 K/mm3 (0.1-0.6); Monocytes Percent Auto 12.1 % (2.6-8.5); Neutrophils Absolute Auto 1.3 K/mm3 (1.3-6.7); Neutrophils Percent Auto 32.1 % (45.5-73.1); Platelet Count Result 350 k/mm3 (150-375); Red Blood Count 4.97 M/mm3 (4.2-5.4); White Blood Count 3.9 K/mm3 (4.5-10.0)
[2020-08-18 20:11] LABS: INR 0.9; Partial Thromboplastin Time 23.5 SECONDS (22.3-36.8); Prothrombin Time 13.2 Seconds (11.1-14.7)
[2020-08-18 20:12] LABS: Anion Gap 10 mmol/L (8-16); Blood Urea Nitrogen 13 mg/dL (7-17); Calcium 9.4 mg/dL (8.4-10.2); Carbon Dioxide 23 mmol/L (22-30); Chloride 108 mmol/L (98-107); Estimated Glomerular Filt Rate > 60; Glucose 144 mg/dL (65-105); Potassium 3.9 mmol/L (3.4-5.0); Sodium 141 mmol/L (137-145)
[2020-08-18 20:24] LABS: Troponin I < 0.012 ng/mL (0.000-0.034)
--- NOTE | 2020-08-18 20:39 | ED.ARRPALP ---
HPI - Arrhythmia/Palpitations General Chief Complaint: Arrhythmia/Palpitations Stated Complaint: palpitations Time Seen by Provider: 08/18/20 20:28 Source: patient and family Mode of arrival: ambulatory Limitations: no limitations History of Present Illness HPI narrative: 65-year-old with a history of hypothyroidism, hormonal imbalance here with complaints of palpitations for past few hours. Patient states that she was watching TV and all of a sudden she started having fast heartbeat. She denied any chest pain or shortness of breath. Patient states that she gets rapid heartbeat once every 28 days but this is out of her norm and she was worried that it could be a cardiac issue. She also mentions her primary doctor has reduced the dosage of metoprolol 100 to 50 mg recently. She denies any fever or chills no history of shortness of breath. She also mentions that she has been quite anxious in the recent past MD complaint: rapid heart beat Onset (ago): hour(s) (1) Duration: now resolved Severity: moderate Context: occurred during rest Associated symptoms: denies other symptoms Related Data Home Medications Medication Instructions Recorded Confirmed levothyroxine [Levoxyl] 175 mcg PO DAILY 04/30/19 01/18/20 metoprolol succinate 50 mg 100 mg PO HS 05/22/19 01/18/20 tablet,extended release 24 hr metformin 1,000 mg PO DAILY 09/26/19 01/18/20 metformin 500 mg HS 09/26/19 01/18/20 Vitamin D3 100 mcg PO DAILY 01/18/20 01/18/20 clindamycin phosphate See Rx Instructions .ROUTE 01/18/20 01/18/20 .COMPLEX PRN levocetirizine [Xyzal] 5 mg PO DAILY PRN 01/18/20 01/18/20 mecobalamin (vitamin B12) 2,500 mcg PO DAILY 01/18/20 01/18/20 metoprolol tartrate See Rx Instructions .ROUTE 01/18/20 01/18/20 .COMPLEX PRN Allergies Allergy/AdvReac Type Severity Reaction Status Date / Time gianna Allergy Severe HIVES/RED Verified 12/28/19 13:21 FACE Penicillins Allergy Severe ANAPHYLACTIC Verified 12/28/19 13:21 SHOCK levofloxacin Allergy Intermediate Vomiting Verified 12/28/19 13:21 penicillin G Allergy Intermediate Rash Verified 12/28/19 13:21 red dye Allergy Intermediate HIVES Verified 12/28/19 13:21 Sulfa (Sulfonamide Allergy Intermediate Rash Verified 12/28/19 13:21 Antibiotics) levothyroxine sodium Allergy Unknown Hives Verified 12/28/19 13:21 [From Synthroid] doxycycline AdvReac Diarrhea Verified 12/28/19 13:21 Contrast Media Allergy Unknown BODY RASH Uncoded 09/26/19 05:35 Review of Systems Review of Systems: All systems reviewed & are unremarkable except as noted in HPI and below Constitutional: Constitutional: Reports no additional constitutional complaints Eyes: Eyes: Reports no additional eye complaints Cardiovascular: Cardiovascular: Reports as per HPI Respiratory: Respiratory: Reports no additional respiratory complaints Gastrointestinal: Gastrointestinal: Reports no additional gastrointestinal complaints Musculoskeletal: Musculoskeletal: Reports no additional musculoskeletal complaints Neurologic: Reports system reviewed and no additional complaints, except as documented PMFSH Past Medical History Medical History Bilateral artificial lens implant Cataracts, bilateral Endometriosis Krzysztof's thyroiditis (Unknown) History of small bowel obstruction In May of 2015. Treated at [facility] with NG tube decompression - resolved. HTN (hypertension) (Unknown) Hyperlipidemia Insulin resistance (Unknown) Migraine Rosacea Sinus problem Toe fracture, right Ureteropelvic junction calculus Wears glasses reading Surgical History Surgical History History of abdominoplasty 1992 injury to abdominal muscle in during childbirth and subsequently had an abdominoplasty for repair. History of cholecystectomy 1997 Laparoscopic common bile duct exploration for choledocholithiasis with cholecyste
[2020-08-18 20:56] VITALS: BP 179/84; PULSE 89; RESP 18
== END 2020-08-18 21:08 | disposition home or self-care (01) ==
PROVIDERS: Emergency Provider Family Medicine; PCP Family Medicine Adolescent Medicine
DX: R00.0 Tachycardia, unspecified (principal); E06.3 Autoimmune thyroiditis; I10 Essential (primary) hypertension; E78.5 Hyperlipidemia, unspecified; E88.81 Metabolic syndrome and other insulin resistance; Z79.4 Long term (current) use of insulin; Z98.42 Cataract extraction status, left eye; Z98.41 Cataract extraction status, right eye; Z96.1 Presence of intraocular lens; I49.1 Atrial premature depolarization; I45.10 Unspecified right bundle-branch block
CPT/HCPCS: 36415; 71046; 80048; 84484; 85025; 85610; 85730; 93005; 99284

== ENCOUNTER 2020-09-17 15:08 | Emergency (ER) | payer MEDICARE, SELFPAY ==
[2020-09-17 15:11] VITALS: BP 172/86; PULSE 102; RESP 16; TEMP 36.4; O2SAT 100
--- NOTE | 2020-09-17 15:15 | ED.FEMALEGU ---
HPI - Female Genitourinary General Chief complaint: Urogenital-Female Stated complaint: UTI SYMPTOMS Time Seen by Provider: 09/17/20 15:15 Source: patient and RN notes reviewed Mode of arrival: ambulatory Limitations: no limitations History of Present Illness HPI Narrative: 65-year-old female presents with concern for urinary tract infection. Reports 2-day history of strong foul-smelling urine, 1 day history of bilateral low back ache. Reports these are the symptoms she usually gets when she gets urinary tract infection. She denies dysuria, hematuria, urgency, frequency, abdominal pain, vomiting, nausea, fever, body aches, malaise. MD elicited complaint: UTI Related Data Home Medications Medication Instructions Recorded Confirmed levothyroxine [Levoxyl] 175 mcg PO DAILY 04/30/19 01/18/20 metoprolol succinate 50 mg 100 mg PO HS 05/22/19 01/18/20 tablet,extended release 24 hr metformin 1,000 mg PO DAILY 09/26/19 01/18/20 metformin 500 mg HS 09/26/19 01/18/20 Vitamin D3 100 mcg PO DAILY 01/18/20 01/18/20 levocetirizine [Xyzal] 5 mg PO DAILY PRN 01/18/20 01/18/20 mecobalamin (vitamin B12) 2,500 mcg PO DAILY 01/18/20 01/18/20 metoprolol tartrate See Rx Instructions .ROUTE 01/18/20 01/18/20 .COMPLEX PRN Allergies Allergy/AdvReac Type Severity Reaction Status Date / Time gianna Allergy Severe HIVES/RED Verified 12/28/19 13:21 FACE Penicillins Allergy Severe ANAPHYLACTIC Verified 12/28/19 13:21 SHOCK levofloxacin Allergy Intermediate Vomiting Verified 12/28/19 13:21 penicillin G Allergy Intermediate Rash Verified 12/28/19 13:21 red dye Allergy Intermediate HIVES Verified 12/28/19 13:21 Sulfa (Sulfonamide Allergy Intermediate Rash Verified 12/28/19 13:21 Antibiotics) levothyroxine sodium Allergy Unknown Hives Verified 12/28/19 13:21 [From Synthroid] doxycycline AdvReac Diarrhea Verified 12/28/19 13:21 Contrast Media Allergy Unknown BODY RASH Uncoded 09/26/19 05:35 Review of Systems Review of Systems: Narrative: CONSTITUTIONAL: Denies malaise, chills, sweats, or fever. CARDIOVASCULAR: Denies chest pain, palpitations, or edema. RESPIRATORY: Denies cough or dyspnea. GASTROINTESTINAL: Denies abdominal pain, nausea, vomiting, diarrhea GENITOURINARY: Denies dysuria or hematuria. Reports foul-smelling urine MUSCULOSKELETAL: Reports low back ache. Denies myalgia. All systems reviewed & are unremarkable except as noted in HPI and below PMFSH Past Medical History Medical History (Updated 09/17/20 @ 15:31 by Pauline Garcias NP) Bilateral artificial lens implant Cataracts, bilateral Endometriosis Krzysztof's thyroiditis (Unknown) History of small bowel obstruction In May of 2015. Treated at [facility] with NG tube decompression - resolved. HTN (hypertension) (Unknown) Hyperlipidemia Insulin resistance (Unknown) Migraine Rosacea Sinus problem Toe fracture, right Ureteropelvic junction calculus Wears glasses reading Surgical History Surgical History History of abdominoplasty 1992 injury to abdominal muscle in during childbirth and subsequently had an abdominoplasty for repair. History of cholecystectomy 1997 Laparoscopic common bile duct exploration for choledocholithiasis with cholecystectomy converted to open cholecystectomy with a right subcostal incision. History of ERCP Prior to CBD exploration and cholecystectomy, unsuccessful in removing all stones. History of lithotripsy December 2018. History of total hysterectomy with bilateral salpingo-oophorectomy (BSO) 2016 through a pfannenstiel incision History of tubal ligation Laparoscopic tubal ligation History of ventral hernia repair Incisional hernia repair from previous trochar site incision. Performed as an open hernia repair with mesh at [facility] in 2002. Family History Family History Father Family history of elevated
[2020-09-17 15:17] VITALS: BP 172/86; PULSE 102; RESP 16; TEMP 36.4; O2SAT 100
== END 2020-09-17 15:41 | disposition home or self-care (01) ==
PROVIDERS: Emergency Provider Nurse Practitioner; PCP Family Medicine Adolescent Medicine
DX: N30.00 Acute cystitis without hematuria (principal); E06.3 Autoimmune thyroiditis; I10 Essential (primary) hypertension; E78.5 Hyperlipidemia, unspecified
CPT/HCPCS: 81003; 87077; 87086; 87088; 87186; 99213; G0463

== ENCOUNTER 2020-09-28 17:18 | Emergency (ER) | payer MEDICARE, SELFPAY ==
--- NOTE | ~2020-09-28 | XR_ITS ---
EXAMINATION: XR chest 2V DATE: 09/28/2020 18:13 INDICATION: Chest pain and congestion. TECHNIQUE: PA and lateral views of the chest were obtained. COMPARISON: Chest radiograph dated 08/18/2020 FINDINGS: The lungs remain clear with no focal airspace opacities, pulmonary edema, pleural effusion or pneumot horax. The cardiomediastinal silhouette is normal. Mild thoracolumbar levoscoliosis with moderate spo ndylosis. Cholecystectomy clips in right upper quadrant. IMPRESSION: 1. No acute cardiopulmonary disease. Reviewed, dictated and finalized at location A.
[2020-09-28 17:20] VITALS: BP 150/83; PULSE 87; RESP 16; TEMP 36.2; O2SAT 99
--- NOTE | 2020-09-28 17:24 | ECG_ITS ---
Measurements Intervals [place] Rate: 84 P: 43 SC: 158 QRS: -17 QRSD: 142 T: 3 QT: 375 QTc: 445 Interpretive Statements SINUS RHYTHM RIGHT BUNDLE BRANCH BLOCK LOW VOLTAGE- PRECORDIAL LEADS ABNORMAL ECG Electronically Signed On 09-28-2020 20:04:33 CDT by Carlito Mtz D.O.
[2020-09-28 17:37] LABS: Basophils Percent Auto 0.3 % (0.2-1.2); Eosinophils Absolute Auto 0.1 K/mm3 (0-0.3); Eosinophils Percent Auto 3.1 % (0-4.4); Hematocrit 41.9 % (37.0-47.0); Hemoglobin 13.1 g/dL (12.0-15.0); Immature Granulocyte Absolute 0.01 K/mm3 (0.00-0.031); Immature Granulocyte Percent A 0.3 % (0-0.5); Lymphocytes Absolute Auto 1.94 K/mm3 (0.9-3.2); Mean Corpuscular HGB Conc 31.3 g/dl (32-36); Mean Corpuscular Hemoglobin 25.9 pg (26-34); Mean Corpuscular Volume 82.8 fl (80-100); Mean Platelet Volume 8.3 fl (7.4-10.4); Monocytes Absolute Auto 0.4 K/mm3 (0.1-0.6); Monocytes Percent Auto 11.4 % (2.6-8.5); Neutrophils Absolute Auto 1.1 K/mm3 (1.3-6.7); Neutrophils Percent Auto 30.9 % (45.5-73.1); Platelet Count Result 353 k/mm3 (150-375); Red Blood Count 5.06 M/mm3 (4.2-5.4); Red Cell Distribution Width 15.9 % (11.5-14.5); White Blood Count 3.6 K/mm3 (4.5-10.0)
[2020-09-28 17:48] LABS: Anion Gap 10 mmol/L (8-16); Blood Urea Nitrogen 17 mg/dL (7-17); Calcium 9.3 mg/dL (8.4-10.2); Carbon Dioxide 21 mmol/L (22-30); Chloride 110 mmol/L (98-107); Estimated CRCL calculation 77 ml/min; Estimated Glomerular Filt Rate > 60; Glucose 129 mg/dL (65-105); Potassium 4.2 mmol/L (3.4-5.0); Sodium 141 mmol/L (137-145)
[2020-09-28 17:50] LABS: Partial Thromboplastin Time 23.1 SECONDS (22.3-36.8); Prothrombin Time 13.8 Seconds (11.1-14.7)
[2020-09-28 17:59] LABS: Troponin I < 0.012 ng/mL (0.000-0.034)
--- NOTE | 2020-09-28 18:05 | ED.CHESTPAIN ---
HPI - Chest Pain General Chief Complaint: Chest Pain Stated Complaint: chest tightness Time Seen by Provider: 09/28/20 18:05 History of Present Illness HPI narrative: 65 yo female w/ h/o htn presents to [facility] ED for chest pain and a rash. She reports that she swallowed a piece of meat yesterday and it became stuck in her throat briefly. after that she had some discomfort in her chest and today it was worse. It is exacerbated by taking a deep breath. In addition to this she has a rash on her extremities and back. This started yesterday after swimming in a pool, which she reports seems to be over chloinated. She thought that was the likely cause of the rash, but also notes that she was taking keflex and it could have been an allergic reaction. This is why she was concerned about the chest pain, she thought she may have swelling in her throat due to an allergy. She reports all symptoms improveing now. Related Data Home Medications Medication Instructions Recorded Confirmed levothyroxine [Levoxyl] 175 mcg PO DAILY 04/30/19 01/18/20 metoprolol succinate 50 mg 100 mg PO HS 05/22/19 01/18/20 tablet,extended release 24 hr metformin 1,000 mg PO DAILY 09/26/19 01/18/20 metformin 500 mg HS 09/26/19 01/18/20 Vitamin D3 100 mcg PO DAILY 01/18/20 01/18/20 levocetirizine [Xyzal] 5 mg PO DAILY PRN 01/18/20 01/18/20 mecobalamin (vitamin B12) 2,500 mcg PO DAILY 01/18/20 01/18/20 metoprolol tartrate See Rx Instructions .ROUTE 01/18/20 01/18/20 .COMPLEX PRN Allergies Allergy/AdvReac Type Severity Reaction Status Date / Time gianna Allergy Severe HIVES/RED Verified 09/28/20 18:30 FACE Penicillins Allergy Severe ANAPHYLACTIC Verified 09/28/20 18:30 SHOCK levofloxacin Allergy Intermediate Vomiting Verified 09/28/20 18:30 penicillin G Allergy Intermediate Rash Verified 09/28/20 18:30 red dye Allergy Intermediate HIVES Verified 09/28/20 18:30 Sulfa (Sulfonamide Allergy Intermediate Rash Verified 09/28/20 18:30 Antibiotics) levothyroxine sodium Allergy Unknown Hives Verified 09/28/20 18:30 [From Synthroid] doxycycline AdvReac Diarrhea Verified 09/28/20 18:30 Contrast Media Allergy Unknown BODY RASH Uncoded 09/28/20 18:30 Review of Systems Review of Systems: All systems reviewed & are unremarkable except as noted in HPI and below Constitutional: Constitutional: Denies chills and Denies fever(s) ENT: Denies dizziness and Reports sore throat Cardiovascular: Cardiovascular: Reports chest pain Respiratory: Respiratory: Denies cough and Denies dyspnea Gastrointestinal: Gastrointestinal: Denies abdominal pain, Denies nausea and Denies vomiting Genitourinary: Genitourinary: Reports no additional female genitourinary complaints Musculoskeletal: Musculoskeletal: Denies back pain Integumentary/Breasts: Skin/Breast: Reports rash Neurologic: Denies confusion, Denies dizziness and Denies weakness PMFSH Past Medical History Medical History Bilateral artificial lens implant Cataracts, bilateral Endometriosis Krzysztof's thyroiditis (Unknown) History of small bowel obstruction In May of 2015. Treated at [facility] with NG tube decompression - resolved. HTN (hypertension) (Unknown) Hyperlipidemia Insulin resistance (Unknown) Migraine Rosacea Sinus problem Toe fracture, right Ureteropelvic junction calculus Wears glasses reading Surgical History Surgical History History of abdominoplasty 1992 injury to abdominal muscle in during childbirth and subsequently had an abdominoplasty for repair. History of cholecystectomy 1997 Laparoscopic common bile duct exploration for choledocholithiasis with cholecystectomy converted to open cholecystectomy with a right subcostal incision. History of ERCP Prior to CBD exploration and cholecystectomy, unsuccessful in removing all stones. History of lithotripsy Sep
[2020-09-28 18:29] VITALS: PULSE 88
[2020-09-28 19:00] VITALS: PULSE 85; RESP 21; O2SAT 99
[2020-09-28 19:01] VITALS: BP 143/84; PULSE 99; RESP 18; O2SAT 99
[2020-09-28 19:15] VITALS: PULSE 80; RESP 19
[2020-09-28 19:35] VITALS: TEMP 36.7
== END 2020-09-28 19:37 | disposition home or self-care (01) ==
PROVIDERS: Emergency Medicine; Emergency Provider Emergency Medicine; PCP Family Medicine Adolescent Medicine
DX: R07.9 Chest pain, unspecified (principal); L30.9 Dermatitis, unspecified; I10 Essential (primary) hypertension; E78.5 Hyperlipidemia, unspecified; E88.81 Metabolic syndrome and other insulin resistance; E06.3 Autoimmune thyroiditis; Z98.42 Cataract extraction status, left eye; Z98.41 Cataract extraction status, right eye; Z96.1 Presence of intraocular lens; Z79.84 Long term (current) use of oral hypoglycemic drugs; I45.10 Unspecified right bundle-branch block
CPT/HCPCS: 36415; 71046; 80048; 84484; 85025; 85610; 85730; 93005; 99284

== ENCOUNTER → 2020-11-22 07:06 | Outpatient (CLI) | payer MEDICARE, SELFPAY ==
--- NOTE | ~2020-11-22 | XR_ITS ---
XR hip LT min 2V DATE: 11/22/2020 07:56 INDICATION: Left hip pain TECHNIQUE: AP and lateral views COMPARISON: None FINDINGS: There is joint space narrowing and prominent spurring consistent with severe osteoarthritis of the left hip. No fracture, dislocation, avascular necrosis or bone destruction is detected. The pubic symphysis and left sacroiliac joint are intact. IMPRESSION: Severe primary left hip osteoarthritis Reviewed, dictated and finalized at location D.
== END ==
PROVIDERS: PCP Family Medicine Adolescent Medicine; Visit Provider Physician Assistant
DX: M17.12 Unilateral primary osteoarthritis, left knee (principal)
CPT/HCPCS: 73502

== ENCOUNTER 2020-12-14 00:35 | Emergency (ER) | payer MEDICARE, SELFPAY ==
[2020-12-14] VITALS (7 sets, daily range): BP systolic 115–186; BP diastolic 64–94; PULSE 69–135; RESP 15–28; TEMP 36; O2SAT 97–100
--- NOTE | ~2020-12-14 | XR_ITS ---
EXAMINATION: XR chest 2V DATE: 12/14/2020 01:52 INDICATION: Hypertension and tachycardia TECHNIQUE: PA and lateral views of the chest were obtained. COMPARISON: Chest radiograph dated 09/28/2020 FINDINGS: The lungs remain clear with no focal airspace opacities, pulmonary edema, pleural effusion or pneumot horax. The cardiomediastinal silhouette is normal. Cholecystectomy clips in right upper quadrant. Mil d thoracolumbar levoscoliosis with moderate spondylosis. IMPRESSION: 1. No acute cardiopulmonary disease. Reviewed, dictated and finalized at location A.
--- NOTE | ~2020-12-14 | NM_ITS ---
EXAMINATION: NM pulmonary perfusion DATE: 12/14/2020 04:37 INDICATION: Dyspnea. Elevated d-dimer. TECHNIQUE: 2.88 mCi Tc-99m MAA by intravenous route. Scintigraphic images of the chest were obtained . COMPARISON: Chest radiograph dated 12/14/2020 FINDINGS: There is relatively homogeneous perfusion throughout the lungs. No discrete discrete perfusion defec ts identified. IMPRESSION: 1. Low probability for pulmonary embolism. Reviewed, dictated and finalized at location A.
--- NOTE | 2020-12-14 01:17 | ECG_ITS ---
Measurements Intervals [place] Rate: 121 P: 45 PA: 170 QRS: -23 QRSD: 135 T: -4 QT: 318 QTc: 452 Interpretive Statements SINUS TACHYCARDIA RIGHT BUNDLE BRANCH BLOCK BASELINE ARTIFACT- I, II, III, AVR, AVL, AVF, V2-V3 ABNORMAL ECG Electronically Signed On 12-14-2020 7:02:31 CDT by Carlito Mtz D.O.
[2020-12-14 01:41] LABS: Basophils Percent Auto 0.5 % (0.2-1.2); Eosinophils Absolute Auto 0.1 K/mm3 (0-0.3); Eosinophils Percent Auto 2.8 % (0-4.4); Hematocrit 40.5 % (37.0-47.0); Hemoglobin 12.6 g/dL (12.0-15.0); Lymphocytes Absolute Auto 2.37 K/mm3 (0.9-3.2); Lymphocytes Percent Auto 55.8 % (18.3-44.2); Mean Corpuscular HGB Conc 31.1 g/dl (32-36); Mean Corpuscular Volume 80.4 fl (80-100); Mean Platelet Volume 8.5 fl (7.4-10.4); Monocytes Absolute Auto 0.7 K/mm3 (0.1-0.6); Monocytes Percent Auto 16.7 % (2.6-8.5); Neutrophils Percent Auto 24.2 % (45.5-73.1); Platelet Count Result 372 k/mm3 (150-375); Red Blood Count 5.04 M/mm3 (4.2-5.4); Red Cell Distribution Width 15.8 % (11.5-14.5); White Blood Count 4.3 K/mm3 (4.5-10.0)
[2020-12-14 01:54] LABS: Anion Gap 9 mmol/L (8-16); Blood Urea Nitrogen 12 mg/dL (7-17); Calcium 9.2 mg/dL (8.4-10.2); Carbon Dioxide 22 mmol/L (22-30); Chloride 107 mmol/L (98-107); Estimated CRCL calculation 88 ml/min; Estimated Glomerular Filt Rate > 60; Glucose 115 mg/dL (65-110); Potassium 3.6 mmol/L (3.4-5.0); Sodium 138 mmol/L (137-145)
[2020-12-14 01:59] LABS: Partial Thromboplastin Time 22.9 SECONDS (22.3-36.8); Prothrombin Time 12.6 Seconds (11.1-14.7)
[2020-12-14 02:06] LABS: Troponin I < 0.012 ng/mL (0.000-0.034)
--- NOTE | 2020-12-14 02:14 | ED.GENADULT ---
HPI - General Adult General Chief complaint: Recheck/Abnormal Lab/Rx Stated complaint: blood pressure and heart rate are up Time Seen by Provider: 12/14/20 02:07 Source: RN notes reviewed History of Present Illness HPI narrative: Patient presents emergency department from home for palpitations. Patient states that she was laying at home around 2300 on 12/13/2020 when she began to feel like her heart was racing she states at that time her heart monitor on her watch 3 different times told her that she was in arrhythmia patient states she had no other symptoms with this she denies any fevers or chills, chest pain, shortness of breath abdominal pain nausea vomiting or any other symptoms. Patient states she still feels like her heart is racing but is improved from prior. 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 she had had a hysterectomy which I thought would fix it but does not she states normally once a month she will have an episode of rapid heart rate Related Data Home Medications Medication Instructions Recorded Confirmed levothyroxine [Levoxyl] 175 mcg PO DAILY 04/30/19 01/18/20 metoprolol succinate 50 mg 100 mg PO HS 05/22/19 01/18/20 tablet,extended release 24 hr metformin 1,000 mg PO DAILY 09/26/19 01/18/20 metformin 500 mg HS 09/26/19 01/18/20 Vitamin D3 100 mcg PO DAILY 01/18/20 01/18/20 levocetirizine [Xyzal] 5 mg PO DAILY PRN 01/18/20 01/18/20 mecobalamin (vitamin B12) 2,500 mcg PO DAILY 01/18/20 01/18/20 metoprolol tartrate See Rx Instructions .ROUTE 01/18/20 01/18/20 .COMPLEX PRN Allergies Allergy/AdvReac Type Severity Reaction Status Date / Time gianna Allergy Severe HIVES/RED Verified 12/14/20 00:50 FACE Penicillins Allergy Severe ANAPHYLACTIC Verified 12/14/20 00:50 SHOCK levofloxacin Allergy Intermediate Vomiting Verified 12/14/20 00:50 penicillin G Allergy Intermediate Rash Verified 12/14/20 00:50 red dye Allergy Intermediate HIVES Verified 12/14/20 00:50 Sulfa (Sulfonamide Allergy Intermediate Rash Verified 12/14/20 00:50 Antibiotics) levothyroxine sodium Allergy Unknown Hives Verified 12/14/20 00:50 [From Synthroid] doxycycline AdvReac Diarrhea Verified 12/14/20 00:50 Contrast Media Allergy Unknown BODY RASH Uncoded 12/14/20 00:50 Review of Systems Review of Systems: Gen.: Denies fevers or chills ENT: Denies congestion Respiratory: Denies shortness of breath or cough CV: See HPI GI: Denies abdominal pain nausea, emesis or diarrhea Musculoskeletal: Denies back pain or muscle pain Neuro: Denies numbness, tingling, weakness or focal weakness Skin: Denies rash Except as documented, all other systems reviewed and negative [facility] Past Medical History Medical History (Updated 12/14/20 @ 05:46 by Brian Caceres DO) Bilateral artificial lens implant Cataracts, bilateral Endometriosis Krzysztof's thyroiditis (Unknown) History of small bowel obstruction In May of 2015. Treated at [facility] with NG tube decompression - resolved. HTN (hypertension) (Unknown) Hyperlipidemia Insulin resistance (Unknown) Migraine Rosacea Sinus problem Toe fracture, right Ureteropelvic junction calculus Wears glasses reading Surgical History Surgical History History of abdominoplasty 1992 injury to abdominal muscle in during childbirth and subsequently had an abdominoplasty for repair. History of cholecystectomy 1997 Laparoscopic common bile duct exploration for choledocholithiasis with cholecystectomy converted to open cholecystectomy with a right subcostal incision. History of ERCP Prior to CBD exploration and cholecystectomy, unsuccessful in removing all stones. History of lithotripsy December 2018. History of total hysterectomy with bilateral salpingo-ooph
[2020-12-14 02:43] LABS: Magnesium 1.6 mg/dL (1.6-2.3)
[2020-12-14] MEDS: SODIUM CHLORIDE 0.9% IV 1,000 ML 999 ML IV CONT (02:52)
[2020-12-14 03:15] LABS: Thyroid Stimulating Hormone < 0.015 uIU/mL (0.465-4.680)
[2020-12-14 05:36] LABS: Troponin I < 0.012 ng/mL (0.000-0.034)
== END 2020-12-14 05:57 | disposition home or self-care (01) ==
PROVIDERS: Emergency Provider Emergency Medicine; PCP Family Medicine Adolescent Medicine
DX: R00.2 Palpitations (principal); E06.3 Autoimmune thyroiditis; I10 Essential (primary) hypertension; E78.5 Hyperlipidemia, unspecified; E88.81 Metabolic syndrome and other insulin resistance; Z79.84 Long term (current) use of oral hypoglycemic drugs; N80.9 Endometriosis, unspecified; Z98.42 Cataract extraction status, left eye; Z98.41 Cataract extraction status, right eye; Z96.1 Presence of intraocular lens; R00.0 Tachycardia, unspecified; I45.10 Unspecified right bundle-branch block
CPT/HCPCS: 36415; 71046; 78580; 80048; 83735; 84443; 84484; 85025; 85380; 85610; 85730; 93005; 96360; 99284; A9540; J7030

== ENCOUNTER 2021-05-25 21:45 | Emergency (ER) | payer MEDICARE, SELFPAY ==
[2021-05-25 21:47] VITALS: BP 174/86; PULSE 96; RESP 18; TEMP 36.7; O2SAT 98
--- NOTE | 2021-05-25 23:43 | PC.NURSE ---
Pt aox3 leaving no longer wants to wait for a room. came to get pt.
== END 2021-05-25 23:43 | disposition left against medical advice (07) ==
DX: R00.0 Tachycardia, unspecified (principal)
CPT/HCPCS: 99199

== ENCOUNTER 2021-12-15 03:44 | Observation (INO) | payer MEDICARE, SELFPAY ==
[2021-12-15] VITALS (7 sets, daily range): BP systolic 119–166; BP diastolic 48–97; PULSE 73–95; RESP 16–20; TEMP 35.8–36.9; O2SAT 95–99; BMI 40.1
--- NOTE | ~2021-12-15 | XR_ITS ---
EXAMINATION: XR sm bowel follow through WS DATE: 12/16/2021 09:13 INDICATION: Ileus versus partial small bowel obstruction TECHNIQUE: Cardiac Cath Lab Technologist radiograph(s) of the abdomen was/were obtained. Water-soluble oral contrast was admi nistered, and sequential radiographs of the abdomen were obtained until oral contrast was noted to be in the proximal colon. Spot fluoroscopic images of the small bowel were obtained. Fluoroscopy exposu re time was 1.0 minutes. A total of 11 fluoroscopic images and 12 overhead radiographs were obtained. COMPARISON: Prior small bowel follow-through studies dated 09/27/2019 and 06/05/[address] studies kallie ed 12/15/2021 and 10/06/2019 FINDINGS: There is some heterotopic ossification projecting over the left and right flanks which on prior CT ap pears to correspond to heterotopic ossification along the infraumbilical anterior abdominal wall like ly related to prior panniculectomy. Transit time from the stomach to rectum was approximately 30 elvira randy. Jejunalization of the ilium with increased number of mucosal folds in the ilium in the right low er quadrant but without loss of the normal jejunal folds. There is a segment of luminal narrowing wit h with an irregular mucosal fold pattern along a loop of ileum in the lateral right abdomen. A simila r appearance is seen on the small bowel study from 10/06/2019. There is a single transition point on b oth the prior CT studies at the proximal margin of this segment of narrowed small bowel which suggest s a chronic fixed stricture. There is however no significant dilation of the more upstream bowel to s uggest a higher grade obstruction. The terminal ileum is poorly visualized due to the relatively low density water-soluble contrast and multiple superimposed loops of bowel. IMPRESSION: 1. Chronically narrowed loop of ileum in the right abdomen but with no significant dilation of the mo re upstream small bowel which suggests a likely low-grade obstruction related to chronic stricture. 2. 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 This can be seen in the setting of raj c disease. Reviewed, dictated and finalized at location A. IMPRESSION: 1. Chronically narrowed loop of ileum in the right abdomen but with no signific ant dilation of the more upstream small bowel which suggests a likely low-grade obstruction related to chronic stricture. 2. 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 This can be seen in the setting of celiac disease.
--- NOTE | ~2021-12-15 | XR_ITS ---
EXAMINATION: XR abdomen obstructive series DATE: 12/16/2021 08:20 INDICATION: Small bowel obstruction. TECHNIQUE: Upright and supine views of the abdomen on 3 radiographs were obtained. COMPARISON: CT abdomen and pelvis 12/15/2021 FINDINGS: There is a dilated loop of small bowel in right abdomen. There is a paucity of stool in the colon. No free intraperitoneal gas. Surgical clips in the right upper quadrant are likely from pat cystectomy. IMPRESSION: 1. Dilated small bowel, consistent with small bowel obstruction. Reviewed, dictated and finalized at location A.
--- NOTE | ~2021-12-15 | CT_ITS ---
EXAMINATION: CT abdomen pelvis wo con DATE: 12/15/2021 04:42 INDICATION: Right lower quadrant abdominal pain. Vomiting. TECHNIQUE: Computed tomography (CT) of the abdomen and pelvis was performed without intravenous contr ast. Automated exposure control and iterative reconstruction technique were employed. The dose-length product was 1333.74 mGy-cm. COMPARISON: CT abdomen and pelvis 09/26/2019 FINDINGS: The visualized portions of the lung bases demonstrate minimal atelectasis. No pleural effus ion. The heart size is normal. No pericardial effusion. The liver and spleen are normal. There are ch anges of cholecystectomy. The pancreas, adrenal glands, and left kidney are normal. There are cysts i n right kidney measuring up to 17 mm. There is no urolithiasis. There is diverticulosis of the colon without evidence of diverticulitis. The appendix is not visualized. There are multiple dilated loops of small bowel with transition point in right lower quadrant. There are no pathologically enlarged ly mph nodes. There is trace ascites. There is thoracolumbar levoscoliosis and severe spondylosis. There are benign bone islands in lumbar spine. IMPRESSION: 1. Dilated small bowel with transition point in the ileum, consistent with small bowel obstruction. Reviewed, dictated and finalized at location A. IMPRESSION: 1. Dilated small bowel with transition point in the ileum, consistent with smal l bowel obstruction.
--- NOTE | 2021-12-15 03:53 | PC.NURSE ---
pt. to room per wheelchair then to bathroom before could provide assessment or interventions. Pt. instructed to pull cord when ready to leave bathroom.
--- NOTE | 2021-12-15 04:05 | ED.GENADULT ---
HPI - General Adult General Chief complaint: Abdominal Pain Stated complaint: N/V, abd pain Time Seen by Provider: 12/15/21 03:51 History of Present Illness HPI narrative: Patient is 66-year-old female who presents to the emergency department with chief complaint of abdominal pain. The patient reports that she has history of a partial small bowel obstruction in the past that was treated conservatively patient reports that today she started having fullness in her abdomen patient reports that it feels similar to whenever she had a partial small bowel obstruction in the past. Patient reports that is a fullness feeling but sharp type pain in the epigastrium. Patient reports has had some nausea but no vomiting denies diarrhea. Patient reports that she has prior surgical history for cholecystectomy and is also had a hysterectomy. Related Data Home Medications Medication Instructions Recorded Confirmed levothyroxine 175 mcg tablet 175 mcg PO DAILY 04/30/19 09/23/21 (Levoxyl) cholecalciferol (vitamin D3) 100 100 mcg PO DAILY 01/18/20 09/23/21 mcg (4,000 unit) capsule (Vitamin D3) levocetirizine 5 mg tablet (Xyzal) 5 mg PO DAILY PRN allergies 01/18/20 09/23/21 mecobalamin (vitamin B12) 5,000 2,500 mcg PO DAILY 01/18/20 09/23/21 mcg disintegrating tablet metoprolol tartrate 50 mg tablet See Rx Instructions .Route 01/18/20 09/23/21 .COMPLEX PRN migraines clindamycin phosphate 1 % lotion 1 applic topical BID PRN 09/23/21 09/23/21 estradiol 0.5 mg tablet 0.5 mg PO DAILY 09/23/21 09/23/21 metformin 500 mg tablet 1,500 mg PO DAILY 09/23/21 09/23/21 rosuvastatin 10 mg tablet 7.5 mg PO DAILY 09/23/21 09/23/21 Allergies Allergy/AdvReac Type Severity Reaction Status Date / Time gianna Allergy Severe HIVES/RED Verified 09/23/21 13:43 FACE Penicillins Allergy Severe ANAPHYLACTIC Verified 09/23/21 13:43 SHOCK levofloxacin Allergy Intermediate Vomiting Verified 09/23/21 13:43 red dye Allergy Intermediate HIVES Verified 09/23/21 13:43 Sulfa (Sulfonamide Allergy Intermediate Rash Verified 09/23/21 13:43 Antibiotics) levothyroxine sodium Allergy Unknown Hives Verified 09/23/21 13:43 [From Synthroid] doxycycline AdvReac Diarrhea Verified 09/23/21 13:43 Contrast Media Allergy Unknown BODY RASH Uncoded 09/23/21 13:43 Review of Systems Review of Systems: A 10 system review of systems was completed on the patient and is negative except for what is stated in the HPI. Nursing and ancillary documentation was reviewed. [facility] Past Medical History Medical History Bilateral artificial lens implant Cataracts, bilateral Endometriosis Krzysztof's thyroiditis (Unknown) History of small bowel obstruction In May of 2015. Treated at [facility] with NG tube decompression - resolved. HTN (hypertension) (Unknown) Insulin resistance (Unknown) Migraine Rosacea Toe fracture, right Ureteropelvic junction calculus Surgical History Surgical History History of abdominoplasty 1992 injury to abdominal muscle in during childbirth and subsequently had an abdominoplasty for repair. History of cholecystectomy 1997 Laparoscopic common bile duct exploration for choledocholithiasis with cholecystectomy converted to open cholecystectomy with a right subcostal incision. History of ERCP Prior to CBD exploration and cholecystectomy, unsuccessful in removing all stones. History of lithotripsy December 2018. History of total hysterectomy with bilateral salpingo-oophorectomy (BSO) 2016 through a pfannenstiel incision History of tubal ligation Laparoscopic tubal ligation History of ventral hernia repair Incisional hernia repair from previous trochar site incision. Performed as an open hernia repair with mesh at [place] in 2002. Family History Family History (Reviewed 12/15/21 @ 04:06 by Ry Gann
[2021-12-15] MEDS: SODIUM CHLORIDE 0.9% IV 1,000 ML 999 ML IV CONT (04:16)
[2021-12-15] MEDS: ONDANSETRON INJ 4 MG/2 ML VIAL IV PUSH (04:17)
[2021-12-15 04:25] LABS: Basophils Percent Auto 0.2 % (0.2-1.2); Eosinophils Absolute Auto 0.1 K/mm3 (0-0.3); Hemoglobin 13.3 g/dL (12.0-15.0); Immature Granulocyte Absolute 0.01 K/mm3 (0.00-0.031); Immature Granulocyte Percent A 0.2 % (0-0.5); Lymphocytes Absolute Auto 1.21 K/mm3 (0.9-3.2); Lymphocytes Percent Auto 26.6 % (18.3-44.2); Mean Corpuscular HGB Conc 32.4 g/dl (32-36); Mean Corpuscular Hemoglobin 26.4 pg (26-34); Mean Corpuscular Volume 81.3 fl (80-100); Mean Platelet Volume 8.4 fl (7.4-10.4); Monocytes Absolute Auto 0.7 K/mm3 (0.1-0.6); Monocytes Percent Auto 14.3 % (2.6-8.5); Neutrophils Absolute Auto 2.6 K/mm3 (1.3-6.7); Neutrophils Percent Auto 56.7 % (45.5-73.1); Platelet Count Result 453 k/mm3 (150-375); Red Blood Count 5.04 M/mm3 (4.2-5.4); Red Cell Distribution Width 16.5 % (11.5-14.5); White Blood Count 4.6 K/mm3 (4.5-10.0)
[2021-12-15 04:36] LABS: Alanine Aminotransferase 17 U/L (6-35); Albumin Level 3.9 g/dL (3.5-5.1); Alkaline Phosphatase 118 U/L (38-126); Anion Gap 15 mmol/L (8-16); Aspartate Amino Transferase 25 U/L (14-36); Bilirubin,Total 0.5 mg/dL (0.2-1.3); Blood Urea Nitrogen 12 mg/dL (7-17); Calcium 9.5 mg/dL (8.4-10.2); Carbon Dioxide 19 mmol/L (22-30); Chloride 103 mmol/L (98-107); Estimated CRCL calculation 83 ml/min; Estimated Glomerular Filt Rate > 60; Glucose 153 mg/dL (65-110); Lipase 103 U/L (23-300); Potassium 3.6 mmol/L (3.4-5.0); Sodium 137 mmol/L (137-145)
[2021-12-15 06:00] LABS: Appearance Urine Clear (Clear); Bilirubin Urine Negative (Negative); Color Urine Yellow (Yellow); Glucose Urine UA Negative (Negative); Ketones Urine Negative (Negative); Leukocyte Esterase Ur Negative LEU/UL (Negative); Nitrate Urine Negative (Negative); Protein Urine Trace mg/dL (Negative); Specific Grav Ur >= 1.030 (1.001-1.035); Urobilinogen Urine 0.2 mg/dL (<2.0)
[2021-12-15 06:09] LABS: Bacteria Urine Trace /hpf; Mucus Urine Moderate /lpf; RBC Urine 0-2 /hpf (0-2); Squamous Epithelial Cell Urine Rare /hpf (Few); WBC Urine 0-3 /hpf
[2021-12-15 06:13] LABS: Add Urine Microscopic? YES; Blood Urine Trace-Intact (Negative)
[2021-12-15] MEDS: SODIUM CHLORIDE 0.9% IV 1,000 ML 125 ML IV CONT ×3 (06:27→22:57)
--- NOTE | 2021-12-15 07:55 | PM.IMHP ---
H&P: HPI History of Present Illness Date/Time: 12/15/21 07:55 Chief Complaint: Abdominal pain Narrative: Patient is 66-year-old female who presents to the emergency department with chief complaint of abdominal pain.? patient presented abdominal pain in periumbilical area. There is associated nausea feeling of fullness but no vomiting she claims or vomiting related to the claim that she gets from or sinus allergies. No fever chills. She has history of partial small-bowel obstruction in the past twice. Which was managed conservatively. she had a bowel movement yesterday and also reports that she is passing flatus. Review of Systems Review of Systems: - CONSTITUTIONAL: Denies weight loss, fever and chills. - HEENT: Denies changes in vision and hearing - RESPIRATORY: Denies SOB and cough. - CV: Denies palpitations and CP. - GI: reports abdominal pain, nausea, vomiting and denies diarrhea. - : Denies dysuria and urinary frequency. - MSK: Denies myalgia and joint pain. - SKIN: Denies rash and pruritus. - NEUROLOGICAL: Denies headache and syncope. - PSYCHIATRIC: Denies recent changes in mood. Denies anxiety and depression. [facility] Past Medical History Medical History Bilateral artificial lens implant Cataracts, bilateral Endometriosis Krzysztof's thyroiditis (Unknown) History of small bowel obstruction In May of 2015. Treated at [facility] with NG tube decompression - resolved. HTN (hypertension) (Unknown) Insulin resistance (Unknown) Migraine Rosacea Toe fracture, right Ureteropelvic junction calculus Surgical History Surgical History History of abdominoplasty 1992 injury to abdominal muscle in during childbirth and subsequently had an abdominoplasty for repair. History of cholecystectomy 1997 Laparoscopic common bile duct exploration for choledocholithiasis with cholecystectomy converted to open cholecystectomy with a right subcostal incision. History of ERCP Prior to CBD exploration and cholecystectomy, unsuccessful in removing all stones. History of lithotripsy December 2018. History of total hysterectomy with bilateral salpingo-oophorectomy (BSO) 2016 through a pfannenstiel incision History of tubal ligation Laparoscopic tubal ligation History of ventral hernia repair Incisional hernia repair from previous trochar site incision. Performed as an open hernia repair with mesh at [place] in 2002. Family History Family History Father Family history of elevated blood lipids Heart disease Family history of diabetes mellitus in first degree relative Congestive heart failure Chronic obstructive pulmonary disease Acute myocardial infarction Family history of coronary artery disease Sibling Family history of elevated blood lipids Diabetes mellitus Mother , from ruptured AAA Spontaneous dissection of coronary artery AAA (abdominal aortic aneurysm, ruptured) Other Hypertension Social History Social History Social History: Patient lives at home with her daughter and . Rare alcohol use. Lifelong nonsmoker. No drug use. Full code. Designates her , Juan Vazquez, as her decision-maker. Smoking status: Never smoker Second hand tobacco smoke exposure: No Alcohol intake: current Drinks per week: 1 Alcohol use details: Rare - 1 glass of wine per week. Substance use: never Substance use type: does not use Additional living arrangements comments: Lives with her and eldest daughter who is currently achieving her Master's at [employer] in Engineering. 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 Gender identity (if verbalized by the patient): Female Sexual Orientation (if Verb
[2021-12-15 08:12] LABS: Glucose Point of Care 106 mg/dl (65-105)
[2021-12-15] MEDS: ENOXAPARIN 40 MG/0.4 ML SYRINGE SUB-Q (11:21)
[2021-12-15 12:18] LABS: Glucose Point of Care 102 mg/dl (65-105)
--- NOTE | 2021-12-15 13:12 | PM.CNGS ---
Assessment and Plan Assessment and plan (1) Small bowel obstruction: Code(s): K56.609 - Unspecified intestinal obstruction, unspecified as to partial versus complete obstruction Status: Acute Assessment and Plan: CT scan suggests small bowel obstruction with transition point in the distal ileum. This is the same location as her previous obstructions in 2015 and 2019 that were treated conservatively. We will defer NG tube placement for now unless she begins vomiting. Continue to treat conservatively with bowel rest, IV fluids, analgesics, and antiemetics as needed. Will order an obstructive series tomorrow morning. Additionally, we would recommend that she have a referral to GI for a colonoscopy after discharge to try and evaluate the terminal ileum stricture. She has not had a colonoscopy since 1997. 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: Code(s): E03.8 - Other specified hypothyroidism; E06.3 - Autoimmune thyroiditis Status: Acute (4) Insulin resistance: Onset Date: Unknown Code(s): E88.81 - Metabolic syndrome Status: Chronic (5) HTN (hypertension): Onset Date: Unknown Qualifiers: Hypertension type: unspecified Qualified Code(s): I10 - Essential (primary) hypertension Code(s): I10 - Essential (primary) hypertension Status: Chronic (6) Morbid obesity with BMI of 40.0-44.9, adult: Onset Date: Unknown Code(s): E66.01 - Morbid (severe) obesity due to excess calories; Z68.41 - Body mass index [BMI] 40.0-44.9, adult Status: Acute (7) Allergic rhinitis: Code(s): J30.9 - Allergic rhinitis, unspecified Status: Acute Assessment and Plan: Will start Claritin-D 24 Hr to try and help with her congestion/drainage. Plan I have discussed the patient's case and plan of care with Dr. Scott. History of Present Illness Consult details Consult date: 12/15/21 Reason for consult: other (Small-bowel obstruction) Requesting physician: Ry Loredo MD Narrative: This is a 66-year-old female with a history of Krzysztof's, insulin resistance, coronary artery disease, hypertension, and hyperlipidemia, who presented to the ER early this morning with complaints of abdominal pain. She has a history of small-bowel obstructions in 2015 and 2019 that were treated conservatively. She has also had multiple episodes at home where she has symptoms consistent with her previous obstructions, and she will eat a liquid diet for 1 week with resolution in her symptoms. She does not take laxatives daily, but will take MiraLax as needed when constipated. She reports feeling constipated yesterday and only had 1 small bowel movement throughout the day. While making dinner around 5:00 p.m., she noticed some mild abdominal cramping in her central abdomen with bloating. The symptoms felt similar to previous obstructions, therefore she had popsicles for dinner. After going to bed, she woke up a few times through the night to urinate and noticed some mild cramping and bloating. This was not severe enough to wake her from sleep yet at that point. She then woke up around 3:00 a.m. with severe generalized abdominal pain. She reports associated nausea with 2 episodes of non-bloody vomiting. In the ER, CT scan of abdomen and pelvis was initially read by virtual radiologist and suggested early or partial small bowel obstruction. CT scan read by our radiologist this morning suggests dilated small bowel with transition point in the ileum, consistent with small-bowel obstruction. The patient was admitted to the hospitalist service. Our service was consulted for the small-bowel obstruction. NG tube was deferred in the ER as she was not having any nausea and had not been vomiting since home. [place]
[2021-12-15 16:40] LABS: Glucose Point of Care 97 mg/dl (65-105)
[2021-12-15] MEDS: ROSUVASTATIN 2.5 MG TABLET 7.5 MG PO (16:56)
[2021-12-15] MEDS: LORATADINE/PSEUDOEPHEDRINE (*CRX) 10/240 MG TABLET ER 24 HR 1 TAB PO (16:56)
[2021-12-15] MEDS: METOPROLOL SUCCINATE EXT REL 25 MG TABCR PO (16:56)
[2021-12-15 19:33] LABS: IFOB Positive Control Positive; Immunochemical Fecal Occult Bl Negative (N)
[2021-12-16 05:48] LABS: Hematocrit 32.3 % (37.0-47.0); Hemoglobin 10.2 g/dL (12.0-15.0); Mean Corpuscular HGB Conc 31.6 g/dl (32-36); Mean Corpuscular Hemoglobin 26.4 pg (26-34); Mean Corpuscular Volume 83.5 fl (80-100); Mean Platelet Volume 8.6 fl (7.4-10.4); Platelet Count Result 285 k/mm3 (150-375); Red Blood Count 3.87 M/mm3 (4.2-5.4); Red Cell Distribution Width 16.6 % (11.5-14.5); White Blood Count 2.1 K/mm3 (4.5-10.0)
[2021-12-16] MEDS: SODIUM CHLORIDE 0.9% IV 1,000 ML 125 ML IV CONT (05:57)
[2021-12-16 06:00] VITALS: BP 145/71; PULSE 69; RESP 20; TEMP 35.7; O2SAT 99
[2021-12-16 06:07] LABS: Alanine Aminotransferase 12 U/L (6-35); Albumin Level 2.8 g/dL (3.5-5.1); Alkaline Phosphatase 80 U/L (38-126); Anion Gap 3 mmol/L (8-16); Aspartate Amino Transferase 16 U/L (14-36); Bilirubin,Total 0.2 mg/dL (0.2-1.3); Blood Urea Nitrogen 6 mg/dL (7-17); Calcium 7.7 mg/dL (8.4-10.2); Carbon Dioxide 22 mmol/L (22-30); Chloride 109 mmol/L (98-107); Estimated CRCL calculation 84 ml/min; Estimated Glomerular Filt Rate > 60; Glucose 99 mg/dL (65-110); Magnesium 1.7 mg/dL (1.6-2.3); Potassium 3.2 mmol/L (3.4-5.0); Sodium 134 mmol/L (137-145)
[2021-12-16 07:59] LABS: Glucose Point of Care 103 mg/dl (65-105)
[2021-12-16] MEDS: ENOXAPARIN 40 MG/0.4 ML SYRINGE SUB-Q (09:39)
[2021-12-16 09:40] VITALS: PULSE 116
[2021-12-16] MEDS: METOPROLOL SUCCINATE EXT REL 25 MG TABCR PO (09:40)
[2021-12-16] MEDS: CHOLECALCIFEROL 1,000 UNITS TABLET 1000 UNITS PO (09:41)
[2021-12-16] MEDS: MAGNESIUM SULF 2 GM/WATER 50ML 2 GM/50 ML BAG IVPB (09:42)
[2021-12-16] MEDS: LORATADINE/PSEUDOEPHEDRINE (*CRX) 10/240 MG TABLET ER 24 HR 1 TAB PO (09:49)
[2021-12-16] MEDS: POTASSIUM CHLORIDE INJ 40 MEQ in SODIUM CHLORIDE 0.9% IV 500 ML 130 MEQ IVPB (10:53)
[2021-12-16] MEDS: HYDROcodone/acetaminophen (*CRX) 5-325 MG TABLET 1 TAB PO (11:00)
[2021-12-16 11:39] LABS: Glucose Point of Care 118 mg/dl (65-105)
--- NOTE | 2021-12-16 11:40 | PM.PNGS ---
Progress Note: A&P Assessment and Plan (1) Small bowel obstruction: Code(s): K56.609 - Unspecified intestinal obstruction, unspecified as to partial versus complete obstruction Status: Acute Assessment and Plan: Gastrografin SBFT with transit time to rectum in 30 minutes with a chronically narrowed loop of ileum in the right abdomen, likely low-grade obstruction. Also mentioned jejunalization of the ileum suggestive of possible celiac disease. Discussed with patient. Will advance to full liquids and advance as tolerated to low fiber. Consult dietitian for low fiber instructions. Recommended she see GI as an outpatient for a colonoscopy and further workup for possible celiac. If GI is unable to reach the stricture in the ileum, then could consider a capsule endoscopy if felt that the capsule would not get lodged in this area. Would be ideal to be able to evaluate the bowel in this area to rule out any malignancy causing the stricture. (2) Coronary artery disease: Code(s): I25.10 - Atherosclerotic heart disease of [place] coronary artery without angina pectoris Status: Acute (3) Insulin resistance: Onset Date: Unknown Code(s): E88.81 - Metabolic syndrome Status: Chronic (4) Morbid obesity with BMI of 40.0-44.9, adult: Onset Date: Unknown Code(s): E66.01 - Morbid (severe) obesity due to excess calories; Z68.41 - Body mass index [BMI] 40.0-44.9, adult Status: Acute (5) Osteoarthritis: Code(s): M19.90 - Unspecified osteoarthritis, unspecified site Status: Acute Assessment and Plan: Patient with chronic pain r/t osteoarthritis of her hip. She follows with ortho and is discussing hip replacement with them. She has been taking Ibuprofen daily for her arthritic pain. We recommended to try and avoid NSAIDs if possible. She does not feel that Tylenol helps relieve her pain and requested [place]. Discussed with the patient that we can try a dose to help relieve her hip pain, but she should try to find alternative therapy for her arthritic pain if she will be waiting for the hip replacement for a couple months. It would be okay to start taking the Ibuprofen again if she tries to minimize how much she is taking. Plan I have discussed the patient's case and plan of care with Dr. Scott. Subjective Subjective Date/Time Seen: 12/16/21 11:40 Patient reports: no new complaints, feels better, flatus, bowel movement (x4 this morning) and afebrile Interval history: Patient seen and examined. She reports feeling much better today. No bloating, nausea, or vomiting. Denies any abdominal pain. Reports hip pain related to her chronic osteoarthritis. She typically takes ibuprofen for this. She states Tylenol does not help but she has tried [place] in the past with relief. Review of Systems Review of Systems: All systems reviewed & are unremarkable except as noted in HPI and below Exam Const: General: comfortable and no acute distress Nutritional Appearance: obese Orientation/consciousness: patient oriented x3 GI: Inspection: non-distended and obesity GI Palp: Yes Soft to palpation, No Tenderness to palpation present (GI), No Guarding due to palpation present (GI) and No Rebound tenderness present Auscultation: normal bowel sounds Psych: Mental Status: mental status grossly normal Insight: Good insight present (Psych) Objective Data Vital Signs Vital Signs: Vital Signs - 24 hr 12/15/21 14:00 12/15/21 22:00 12/16/21 06:00 Temperature 98.1 F 96.5 F L 96.2 F L Pulse Rate 89 73 69 Respiratory Rate 16 20 20 Blood Pressure 153/91 H 119/48 L 145/71 H Pulse Oximetry 97 96 99 12/16/21 09:40 Temperature Pulse Rate 116 H Respiratory Rate Blood Pressure Pulse Oximetry Intake/Output Intake/Output: Intake & Output 12/13/21 12/14/21 12/15/21 12/16/21 23:59 23:59 23:59 23:59 Intake Total 3500 1050 Balance 3500 1050 Meds/Results Medicat
[2021-12-16 14:00] VITALS: BP 136/73; PULSE 73; RESP 16; TEMP 36; O2SAT 100
--- NOTE | 2021-12-16 15:56 | PM.IMPN ---
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: Code(s): E03.8 - Other specified hypothyroidism; E06.3 - Autoimmune thyroiditis Status: Acute (4) Mixed hyperlipidemia: Code(s): E78.2 - Mixed hyperlipidemia Status: Acute (5) HTN (hypertension): Onset Date: Unknown Qualifiers: Hypertension type: unspecified Qualified Code(s): I10 - Essential (primary) hypertension Code(s): I10 - Essential (primary) hypertension Status: Chronic (6) Morbid obesity with BMI of 40.0-44.9, adult: Onset Date: Unknown Code(s): E66.01 - Morbid (severe) obesity due to excess calories; Z68.41 - Body mass index [BMI] 40.0-44.9, adult Status: Acute Plan #Abdominal pain #small-bowel obstruction with transition point in ileum. General surgery consulted. Currently NPO and bowel rest. IV fluid. Analgesics . Obstructive series this morning with chronically 2 ileum in the right suggesting low-grade obstruction to chronic stricture. Discussed with surgeon. She needs follow-up with GI as an outpatient basis for colonoscopy and possible intubation of the ileum to evaluate this area and/or possibly a capsule study. She is being started on a diet and evaluate for tolerability. Once tolerated okay to discharge from General surgery standpoint. Will get celiac panel. # ileal stricture as noted in obstructive series. Follow-up with GI for further evaluation an outpatient basis. #History of abdominoplasty [place] injury abdominal muscle during childbirth. #History of ventral hernia repair /Total hysterectomy / cholecystectomy #Endometriosis #Krzysztof's thyroiditis #History of small-bowel obstruction 2015 #Hypertension #Migraine #DVT prophylaxis Lovenox #Code status full code Subjective Date/time seen: 12/16/21 15:56 Interval history: HPI:Patient is 66-year-old female who presents to the emergency department with chief complaint of abdominal pain.? patient presented abdominal pain in periumbilical area.? There is associated nausea feeling of fullness but no vomiting she claims or vomiting related to the claim that she gets from or sinus allergies.? No fever chills.? She has history of partial small-bowel obstruction in the past? twice.? Which was managed conservatively.? she had a bowel movement yesterday and also reports that she is passing flatus. 12/16/2021 no overnight events. Having bowel movement. Denies any abdominal pain nausea vomiting. Review of Systems Review of Systems: All systems reviewed & are unremarkable except as noted in HPI and below Exam Narrative: GENERAL: Well-appearing, well-nourished, and in no acute distress. HEAD: Normocephalic, atraumatic. EYES: PERRLA and EOMI. ENT: Nares clear, no rhinorrhea or epistaxis.? Mucous membranes moist. NECK: Supple. CHEST: Clear to auscultation.? No respiratory distress. HEART: Regular rate and rhythm.? No murmur heard.? Normal peripheral pulses. ABDOMEN: Soft, Nondistended, surgical scar noted. Hypoactive bowel sound. No organomegaly. EXTREMITIES: Normal range of motion.? No edema. SKIN: Warm, dry, no rash. NEURO: No focal deficits.? Alert and oriented x3. PSYCH: Normal mood and affect. Objective Data Vital Signs Vital Signs: Vital Signs - 24 hr 12/15/21 22:00 12/16/21 06:00 12/16/21 09:40 Temperature 96.5 F L 96.2 F L Pulse Rate 73 69 116 H Respiratory Rate 20 20 Blood Pressure 119/48 L 145/71 H Pulse Oximetry 96 99 12/16/21 14:00 Temperature 96.8 F L Pulse Rate 73 Respiratory Rate 16 Blood Pressure 136/73 Pulse Oximetry 100 Intake/Output Intake/Output: Intake & Output 12/13/21 12/14/21 08
[2021-12-16 16:49] LABS: Glucose Point of Care 113 mg/dl (65-105)
--- NOTE | 2021-12-16 17:13 | PM.DS ---
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: Code(s): E03.8 - Other specified hypothyroidism; E06.3 - Autoimmune thyroiditis Status: Acute (4) Mixed hyperlipidemia: Code(s): E78.2 - Mixed hyperlipidemia Status: Acute (5) HTN (hypertension): Onset Date: Unknown Qualifiers: Hypertension type: unspecified Qualified Code(s): I10 - Essential (primary) hypertension Code(s): I10 - Essential (primary) hypertension Status: Chronic (6) Morbid obesity with BMI of 40.0-44.9, adult: Onset Date: Unknown Code(s): E66.01 - Morbid (severe) obesity due to excess calories; Z68.41 - Body mass index [BMI] 40.0-44.9, adult Status: Acute DS: Summary Hospital Course Hospital Course: ?# Abdominal pain ?#small-bowel obstruction with transition point in ileum.? General surgery consulted.? Started on NPO and bowel rest.? IV fluid.? Analgesics .? Obstructive series next day with chronically narrowed loop of ileum in the right suggesting low-grade obstruction to chronic stricture.? Discussed with surgeon.? She needs follow-up with GI as an outpatient basis for colonoscopy and possible intubation of the ileum to evaluate this area and/or possibly a capsule study.? During the hospital stay she started having bowel movement and was started a diet which she tolerated well. She is suggested to stay on low residual diet. She will need evaluation with Gastroenterology with either MR enterography and/or capsule endoscopy to evaluate this bowel wall. She is also on chronic NS 8 therapy which is suggested to be stopped due to possibility of peptic stricture. # ileal stricture as noted in obstructive series.? Follow-up with GI for further evaluation an outpatient basis. ?#History of abdominoplasty [place] injury abdominal muscle during childbirth.? ?#History of ventral hernia repair /Total hysterectomy / cholecystectomy ?#Endometriosis ?#Krzysztof's thyroiditis ?#History of small-bowel obstruction 2015 ?#Hypertension ?#Migraine ?#DVT prophylaxis Lovenox ?#Code status full code Time Spent with Patient Time attestation: Total time spent providing and/or coordinating discharge services: 45 minutes Exam Narrative: GENERAL: Well-appearing, well-nourished, and in no acute distress. HEAD: Normocephalic, atraumatic. EYES: PERRLA and EOMI. ENT: Nares clear, no rhinorrhea or epistaxis.? Mucous membranes moist. NECK: Supple. CHEST: Clear to auscultation.? No respiratory distress. HEART: Regular rate and rhythm.? No murmur heard.? Normal peripheral pulses. ABDOMEN: Soft, Nondistended, surgical scar noted. Hypoactive bowel sound. No organomegaly. EXTREMITIES: Normal range of motion.? No edema. SKIN: Warm, dry, no rash. NEURO: No focal deficits.? Alert and oriented x3. PSYCH: Normal mood and affect. DS: Data Data Completed and Pending Labs on day of discharge: Labs from last 24 hours 12/16/21 12/16/21 12/16/21 16:37 11:21 07:49 WBC RBC Hgb Hct MCV MCH MCHC RDW Plt Count MPV Sodium Potassium Chloride Carbon Dioxide Anion Gap BUN Creatinine Estim Creat Clear Calc Estimated GFR Glucose POC Capillary Glucose 113 H 118 H 103 Calcium Magnesium Total Bilirubin AST ALT Alkaline Phosphatase Total Protein Albumin Stl Occult Blood (IFOB) 12/16/21 12/16/21 12/15/21 05:35 05:35 18:26 WBC 2.1 L RBC 3.87 L Hgb 10.2 L D Hct 32.3 L MCV 83.5 MCH 26.4 MCHC 31.6 L RDW 16.6 H Plt Count 285
== END 2021-12-16 17:37 | disposition home or self-care (01) ==
LOC: ANHED 05:45 → ANH3MEDSUR 05:57
PROVIDERS: Nurse Practitioner Family; Surgery; Admitting Provider Internal Medicine; Emergency Provider Emergency Medicine; PCP Family Medicine Adolescent Medicine; Visit Provider Internal Medicine
DX: K56.600 Partial intestinal obstruction, unspecified as to cause (principal); E06.3 Autoimmune thyroiditis; E78.2 Mixed hyperlipidemia; I10 Essential (primary) hypertension; E66.01 Morbid (severe) obesity due to excess calories; Z68.41 Body mass index [BMI] 40.0-44.9, adult; Z90.49 Acquired absence of other specified parts of digestive tract; E88.81 Metabolic syndrome and other insulin resistance; I25.10 Atherosclerotic heart disease of native coronary artery without angina pectoris; J30.9 Allergic rhinitis, unspecified; M16.11 Unilateral primary osteoarthritis, right hip; Z90.710 Acquired absence of both cervix and uterus; Z90.722 Acquired absence of ovaries, bilateral; Z79.82 Long term (current) use of aspirin; Z79.1 Long term (current) use of non-steroidal anti-inflammatories (NSAID); Z79.84 Long term (current) use of oral hypoglycemic drugs; Z79.3 Long term (current) use of hormonal contraceptives; Z79.899 Other long term (current) drug therapy; Z82.49 Family history of ischemic heart disease and other diseases of the circulatory system
CPT/HCPCS: 36415; 74019; 74176; 74250; 80053; 81001; 82274; 82948; 83605; 83690; 83735; 85025; 85027; 96361; 96365; 96366; 96367; 96372; 96375; 99285; A9270; G0378; J0131; J1650; J2405; J3475; J3480; J7030; J7040

== ENCOUNTER → 2021-12-23 07:03 | Outpatient (CLI) | payer MEDICARE, SELFPAY ==
--- NOTE | ~2021-12-23 | MR_ITS ---
EXAMINATION: MR hip LT wo con DATE: 12/23/2021 07:57 INDICATION: Left hip pain and weakness TECHNIQUE: Magnetic resonance imaging (MRI) of the left hip was performed without intravenous contra st. Sequences included full-field axial PD-weighted FS FSE and T1-weighted FSE, coronal of the pelvis with PD-weighted FS FSE, T2-weighted FSE and T1-weighted FSE, small field of view of the left hip w ith axial PD-weighted FS FSE, sagittal PD-weighted FS FSE, coronal PD-weighted FS FSE and coronal T2 weighted FSE. Additional radial T1-weighted FGR oriented orthogonal to the acetabular rim were obtai jeramy for evaluation of the labrum. COMPARISON: CT abdomen and pelvis dated 12/15/2021 and left hip radiographs dated 11/22/2020 FINDINGS: Bones/labrum/cartilage: Mild lower lumbar dextrocurvature, compensatory for a nonvisualized thoracolumbar levocurvature. No fracture, avascular necrosis or pathologic marrow replacing process. Severe osteoarthritis at the lef t hip with nonuniform joint space narrowing, severe with essentially endi-ta-yehd apposition at the a nterosuperior joint space with subarticular edema-like signal change involving small portions of the acetabulum and femoral head. Additional deep cartilage loss without degenerative subchondral changes along much of the remaining anterior aspect of the femoral head. Moderate size marginal osteophytes a bout the femoral head and acetabulum, the latter replacing the majority of the labral tissue. Degener ation of the remaining meniscal tissue at the posterior labrum. Less severe osteoarthritis, likely mo derate severity at the contralateral right hip which is not diagnostically evaluated on the larger fi eld of view images. Moderate lumbar spondylosis. Mild to moderate bilateral sacroiliac osteoarthritis . Fluid: Symmetric physiologic amount of fluid within both hip joints. Soft tissues: 4.7 x 2.7 x 1.0 cm lenticular intramuscular lipoma within the proximal right vastus lateralis muscle. Relatively symmetric likely age-related mild muscular fatty atrophy of the musculature of the pelvis . There is mild tendinopathy and partial-thickness tear of an approximately 1.5 cm length of the supe rolateral facet footplate of the right vastus medialis tendon with asymmetric retraction of the centr al portion of the myotendinous junction now located approximately 3 cm proximal to the footplate. The collateral iliopsoas and remaining gluteal tendons are normal. There is mild increased fluid signal at the left ischial tuberosity origin of the otherwise normal-appearing left hamstring tendons consis tent with mild ischial bursitis. The proximal right hamstring tendons are also normal. The uterus is not identified and has likely been surgically resected. Limited evaluation of visceral organs of the pelvis is otherwise unremarkable. No pathologically enlarged pelvic/inguinal lymphadenopathy. IMPRESSION: 1. Severe left hip osteoarthritis. 2. Mild left ischial bursitis. 3. Chronic mild partial-thickness tear at the right greater trochanteric insertion of the portion of the central right gluteus medius tendon. Reviewed, dictated and finalized at location A. IMPRESSION: 1. Severe left hip osteoarthritis. 2. Mild left ischial bursitis. 3. Chronic mild partial-thickness tear at the right greater trochanteric insert ion of the portion of the central right gluteus medius tendon.
== END ==
PROVIDERS: PCP Family Medicine Adolescent Medicine; Visit Provider Orthopaedic Surgery
DX: M16.12 Unilateral primary osteoarthritis, left hip (principal); M70.72 Other bursitis of hip, left hip; S76.012A Strain of muscle, fascia and tendon of left hip, initial encounter; X58.XXXA Exposure to other specified factors, initial encounter
CPT/HCPCS: 73721

== ENCOUNTER → 2021-12-23 12:24 | Outpatient (CLI) | payer MEDICARE, SELFPAY ==
--- NOTE | ~2021-12-23 | MM_ITS ---
EXAMINATION: MM screening katina BI w shaw HISTORY: Screening mammogram TECHNIQUE: Craniocaudal and mediolateral oblique 3-D tomosynthesis images were obtained and synthetic 2-D images were generated. CAD analysis was submitted and interpreted. COMPARISON: 02/23/2019 bilateral screening mammogram BREAST PARENCHYMAL COMPOSITION: The breasts are almost entirely fatty. FINDINGS: Scattered bilateral benign calcifications. There is no evidence of suspicious mass, calcifi cation, or architectural distortion to suggest malignancy in either breast. There has been no suspici ous interval change. IMPRESSION: 1. No mammographic evidence of malignancy. 2. Recommend routine screening mammography in one year. BI-RADS Category 2: Benign finding(s). Reviewed, dictated and finalized at location A.
== END ==
PROVIDERS: PCP Family Medicine Adolescent Medicine; Visit Provider Family Medicine Adolescent Medicine
DX: Z12.31 Encounter for screening mammogram for malignant neoplasm of breast (principal)
CPT/HCPCS: 77063; 77067

== ENCOUNTER 2022-05-14 07:56 | Outpatient (CLI) | payer MEDICARE, SELFPAY ==
--- NOTE | 2022-05-14 09:10 | ECG_ITS ---
Measurements Intervals [place] Rate: 78 P: 17 MN: 162 QRS: -9 QRSD: 137 T: -10 QT: 393 QTc: 448 Interpretive Statements SINUS RHYTHM RIGHT BUNDLE BRANCH BLOCK ABNORMAL ECG COMPARED TO ECG 12/14/2020 00:43:38 SINUS RHYTHM NOW PRESENT Electronically Signed On 05-14-2022 9:43:09 COMPOSITION STONE APPLICATOR by Carlito Mtz D.O.
[2022-05-14 09:37] LABS: Basophils Percent Auto 0.6 % (0.2-1.2); Eosinophils Absolute Auto 0.1 K/mm3 (0-0.3); Eosinophils Percent Auto 3.9 % (0-4.4); Hematocrit 38.9 % (37.0-47.0); Hemoglobin 12.4 g/dL (12.0-15.0); Lymphocytes Absolute Auto 1.65 K/mm3 (0.9-3.2); Mean Corpuscular HGB Conc 31.9 g/dl (32-36); Mean Corpuscular Hemoglobin 27.4 pg (26-34); Mean Corpuscular Volume 86.1 fl (80-100); Mean Platelet Volume 8.6 fl (7.4-10.4); Monocytes Absolute Auto 0.5 K/mm3 (0.1-0.6); Monocytes Percent Auto 15.1 % (2.6-8.5); Neutrophils Absolute Auto 1.1 K/mm3 (1.3-6.7); Neutrophils Percent Auto 31.4 % (45.5-73.1); Platelet Count Result 343 k/mm3 (150-375); Red Blood Count 4.52 M/mm3 (4.2-5.4); Red Cell Distribution Width 15.9 % (11.5-14.5); White Blood Count 3.4 K/mm3 (4.5-10.0)
[2022-05-14 09:47] LABS: Hemoglobin A1C 5.4 % (<5.7)
[2022-05-14 09:48] LABS: Albumin Level 3.9 g/dL (3.5-5.1); Anion Gap 7 mmol/L (8-16); Blood Urea Nitrogen 13 mg/dL (7-17); Calcium 9.3 mg/dL (8.4-10.2); Carbon Dioxide 25 mmol/L (22-30); Chloride 109 mmol/L (98-107); Estimated Glomerular Filt Rate > 60; Glucose 95 mg/dL (65-110); Potassium 4.5 mmol/L (3.4-5.0); Sodium 141 mmol/L (137-145)
[2022-05-14 09:49] LABS: Urine Cotinine NEGATIVE
== END 2022-05-14 07:57 | disposition home or self-care (01) ==
PROVIDERS: PCP Family Medicine Adolescent Medicine; Visit Provider Orthopaedic Surgery
DX: Z01.812 Encounter for preprocedural laboratory examination (principal); M16.12 Unilateral primary osteoarthritis, left hip; R94.31 Abnormal electrocardiogram [ECG] [EKG]; I45.10 Unspecified right bundle-branch block; R73.03 Prediabetes
CPT/HCPCS: 80048; 80307; 82040; 83036; 85025; 87081; 93005

== ENCOUNTER 2022-06-01 00:52 | Day surgery (SDC) | payer MEDICARE, SELFPAY ==
--- NOTE | 2022-05-14 08:05 | PC.NURSE ---
PRE-OP INSTRUCTIONS, PLEASE READ CAREFULLY Report to the Outpatient Waiting Room, entrance under the green pavilion located off [facility], at time _0600_ on date _06/01/22_. Planned Procedure Time: _0730_. PACK A SMALL OVERNIGHT BAG AND LEAVE IN THE CAR ALONG WITH YOUR WALKER Time changes happen often and if your time is changed the preop area will call you the afternoon before. - You and your visitor will be asked to self-screen and do not enter if you have any COVID symptoms. - Only one visitor is requested with a max of two and NO children visitors are allowed at this time. - The patient visitor may be requested to leave or wait in car when not with patient due to distancing restrictions. - A mask is optional within the hospital at this time. -VISITING HOURS 8AM-8PM - LIMITED 2 VISITORS @ A TIME Patients may have clear liquids (water, carbonated beverages, clear teas, apple juice) until 3 hours prior to surgery (0430 AM) with a maximum of 20 ounces. - No food from midnight until time of surgery Take the following medications with a SIP of water the morning of surgery: _LEVOXYL, & METOPROLOL IF NEEDED_ DO NOT STOP ANY OF YOUR OTHER PRESCRIPTION MEDICATIONS PRIOR TO SURGERY ?EXCEPT THE FOLLOWING Medications to discontinue per DR. SERNA - _IBUPROFEN 7 DAYS PRIOR TO SURGERY, Date to take last dose_05/24/22_ Please no make-up, nail sl[place], hairspray, perfume, deodorant, or body powder the day of surgery. No jewelry (including any body piercings) or valuables the day of surgery, leave them at home. Please take a shower or bath the night before, or the morning of, surgery with an antibacterial soap. Wear comfortable, loose fitting clothing. - Jewelry must be removed prior to entering the operating room. Rings and piercings that are not removed may be cut off. - The hospital will not accept responsibility for valuables. - Please leave all valuables, including medications, at home the day of surgery. If you are going home after surgery, a licensed cdl a driver must drive you home. - NO public transportation without another adult if you receive anesthesia. - We recommend that an adult stay with you for 24 hours following discharge. - We also recommend that you do not drive, make important decision, drink alcoholic beverages, or take any drugs that were not prescribed by your health care provider for at least 24 hours after your discharge time. Follow any additional instructions given to you from your surgeon. If you or anyone in your household have experienced Covid symptoms in the past week, please notify your surgeon or the nurse liaison at the phone number below for possible testing. Instructions given to _PATIENT_and asked if any additional questions and then verbalized understanding. Patient advised to call surgeon office or pre surgery nurse liaison [phone] if any additional questions.
[2022-05-14 08:39] VITALS: BP 140/80; PULSE 98; RESP 18; TEMP 36.6; O2SAT 99; BMI 37.0
--- NOTE | 2022-05-29 12:00 | PM.IMHP ---
H&P: HPI History of Present Illness Date/Time: 05/29/22 12:00 Chief Complaint: Left hip DJD Narrative: 67-year-old female who presents today for left anterior total hip arthroplasty. Patient is having pain in his hip for well over a year. She has more pain with weight-bearing activities especially daily activities. She has been taking ibuprofen on a regular basis either 400 or 800 mg. 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 It is affecting her daily life at this point she feels she is ready to proceed with total hip arthroplasty rather continue nonsurgical treatment. Review of Systems Review of Systems: All systems reviewed & are unremarkable except as noted in HPI and below PMFSH Past Medical History Medical History Bilateral artificial lens implant Cataracts, bilateral Coronary artery disease Endometriosis Krzysztof's thyroiditis (Unknown) History of small bowel obstruction In May of 2015. Treated at [facility] with NG tube decompression - resolved. HTN (hypertension) (Unknown) Insulin resistance (Unknown) Migraine Rosacea Toe fracture, right Ureteropelvic junction calculus Surgical History Surgical History History of abdominoplasty 1992 injury to abdominal muscle during childbirth and subsequently had an abdominoplasty for repair. History of cholecystectomy 1997 Laparoscopic common bile duct exploration for choledocholithiasis with cholecystectomy converted to open cholecystectomy with a right subcostal incision. History of ERCP Prior to CBD exploration and cholecystectomy, unsuccessful in removing all stones. History of lithotripsy December 2018. History of total hysterectomy with bilateral salpingo-oophorectomy (BSO) 2016 through a pfannenstiel incision History of tubal ligation Laparoscopic tubal ligation History of ventral hernia repair Incisional hernia repair from previous trochar site incision. Performed as an open hernia repair with mesh at [place] in 2002. Family History Family History Father Family history of elevated blood lipids Heart disease Family history of diabetes mellitus in first degree relative Congestive heart failure Chronic obstructive pulmonary disease Acute myocardial infarction Family history of coronary artery disease Sibling Family history of elevated blood lipids Diabetes mellitus Mother , from ruptured AAA Spontaneous dissection of coronary artery AAA (abdominal aortic aneurysm, ruptured) Other Hypertension Social History Social History Social History: Patient lives at home with her daughter and . Rare alcohol use. Lifelong nonsmoker. No drug use. Full code. Designates her , Juan Vazquez, as her decision-maker. Smoking status: Never smoker Second hand tobacco smoke exposure: No Additional smoking assessment comments: PT DENIES USE OF ALL TOBACCO USE Alcohol intake: current Drinks per week: 1 Alcohol use details: Rare - 1 glass of wine per week. Substance use: never Substance use type: does not use Living arrangements: with family Additional living arrangements comments: Lives with her and eldest daughter who is currently achieving her Master's at [employer] in [employer]. 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 Gender identity (if verbalized by the patient): Female Sexual Orientation (if Verbalized by the Patient): Straight or Heterosexual Spiritual care concerns: No Agree to blood products: Yes Meds Home Medications and Allergies Home Medications Medication Instructions Recorded Confirmed Type levothyroxine 175 mcg tablet 175 mcg PO DAILY 04/30/19 06/01/22 History (Levoxyl) choleca
[2022-06-01] VITALS (16 sets, daily range): BP systolic 104–152; BP diastolic 54–89; PULSE 67–107; RESP 16–28; TEMP 35.6–37.7; O2SAT 88–100
--- NOTE | ~2022-06-01 | XR_ITS ---
EXAMINATION: XR surgery orthopedic DATE: 06/01/2022 11:11 INDICATION: Anterior approach left total hip arthroplasty. Postop. TECHNIQUE: 2 intraoperative fluoroscopic views of left hip were obtained. I was not present. Fluorosc opy exposure time was 66 seconds. COMPARISON: Pelvis and left hip radiographs 06/01/2022 FINDINGS: There is a total left hip arthroplasty in near-anatomic alignment. IMPRESSION: 1. Total left hip arthroplasty in near-anatomic alignment. Reviewed, dictated and finalized at location A. [facility]ER
--- NOTE | ~2022-06-01 | XR_ITS ---
Left Hip Technique: AP and lateral views Clinical History: Status post hip arthroplasty Findings: Patient is status post left hip arthroplasty. Orthopedic hardware alignment appears anatomi c. No hardware complication is evident. Subcutaneous emphysema and swelling is likely postoperative i n nature. No acute osseous fracture is seen. Impression: Status post total left hip arthroplasty, without evidence of hardware complication. Reviewed, dictated and finalized at location M. CLOSER Impression: Status post total left hip arthroplasty, without evidence of hardware complicat ion.
[2022-06-01] MEDS: LACTATED RINGERS 1,000 ML 30 ML IV CONT ×2 (06:59→11:27)
[2022-06-01] MEDS: TRANEXAMIC ACID 1,000MG/ISO100 1,000 MG/100 ML BAG 200 MG IVPB (07:01)
--- NOTE | 2022-06-01 07:03 | WPDANESEPPF ---
Anes - Initial Pre Proc Eval Procedure: Operation Date: 06/01/22 07:30 Proposed Procedures p Left Total Hip Arthroplasty, Anterior Approach - Pedro Luis Haider MD Date/Time: 06/01/22 07:03 Surgeon: Pedro Luis Haider MD Pre Op Diagnosis: Lt Hip O.A. Patient Data Age: 67 Gender: F Height: 1.56 m Weight: 89 kg Last Vital Signs Temp 36.1 C L 06/01/22 06:43 Pulse 107 H 06/01/22 06:43 Resp 18 06/01/22 06:43 BP 116/73 06/01/22 06:43 Pulse Ox 99 06/01/22 06:43 O2 Del Method Room Air 06/01/22 06:43 Allergies Allergy/AdvReac Type Severity Reaction Status Date / Time gianna Allergy Severe HIVES/RED Verified 06/01/22 06:06 FACE iohexol Allergy Severe Rash Verified 06/01/22 06:17 [From contrast - CT, X-RAY] Penicillins Allergy Severe ANAPHYLACTIC Verified 06/01/22 06:06 SHOCK levofloxacin Allergy Intermediate Vomiting Verified 06/01/22 06:06 red dye Allergy Intermediate HIVES Verified 06/01/22 06:06 Sulfa (Sulfonamide Allergy Intermediate Rash Verified 06/01/22 06:06 Antibiotics) doxycycline AdvReac Diarrhea Verified 06/01/22 06:06 Home Medications Medication Instructions Recorded Confirmed Type levothyroxine 175 mcg tablet 175 mcg PO DAILY 04/30/19 06/01/22 History (Levoxyl) cholecalciferol (vitamin D3) 100 1,000 unit PO DAILY 01/18/20 06/01/22 History mcg (4,000 unit) capsule (Vitamin D3) levocetirizine 5 mg tablet (Xyzal) 5 mg PO DAILY PRN allergies 01/18/20 05/14/22 History clindamycin phosphate 1 % lotion 1 applic topical QAM 09/23/21 06/01/22 History metformin 500 mg tablet See Rx Instructions .Route .COMPLEX 09/23/21 06/01/22 History rosuvastatin 10 mg tablet 7.5 mg PO DAILY 09/23/21 06/01/22 History pseudoephedrine HCl 120 mg 120 mg PO DAILY PRN Allergy 12/15/21 05/14/22 History tablet,extended release Symptoms ondansetron 4 mg disintegrating 4 mg PO Q8H PRN nausea and 01/26/22 05/14/22 Rx tablet vomiting #10 tabs pen needle, diabetic 32 gauge x #12 ea 02/16/22 05/14/22 Rx metoprolol tartrate 50 mg tablet See Rx Instructions .Route 02/27/22 06/01/22 Rx .COMPLEX PRN migraines #120 tabs terbinafine HCl 250 mg tablet 250 mg PO DAILY #90 tabs 03/30/22 06/01/22 Rx cyanocobalamin (vitamin B-12) 1,250 mg QAM 05/14/22 06/01/22 History ibuprofen 400 mg tablet See Rx Instructions .Route .COMPLEX 05/14/22 06/01/22 History Patient hx anesthesia problems: none Family hx anesthesia problems: none Results Review: All pre-operative results and documents have been reviewed as part of the pre-operative evaluation. [facility] Past Medical History Medical History Bilateral artificial lens implant Cataracts, bilateral Coronary artery disease Endometriosis Krzysztof's thyroiditis (Unknown) History of small bowel obstruction In May of 2015. Treated at [facility] with NG tube decompression - resolved. HTN (hypertension) (Unknown) Insulin resistance (Unknown) Migraine Rosacea Toe fracture, right Ureteropelvic junction calculus Surgical History Surgical History History of abdominoplasty 1992 injury to abdominal muscle during childbirth and subsequently had an abdominoplasty for repair. History of cholecystectomy 1997 Laparoscopic common bile duct exploration for choledocholithiasis with cholecystectomy converted to open cholecystectomy with a right subcostal incision. History of ERCP Prior to CBD exploration and cholecystectomy, unsuccessful in removing all stones. History of lithotripsy December 2018. History of total hysterectomy with bilateral salpingo-oophorectomy (BSO) 2016 through a pfannenstiel incision History of tubal ligation Laparoscopic tubal ligation History of ventral hernia repair Incisional hernia repair from previous trochar site incision. Performed as an open hernia repair with mesh at [place] in 2002. Family
[2022-06-01 07:05] LABS: Glucose Point of Care 103 mg/dl (65-105)
--- NOTE | 2022-06-01 07:15 | WPDHPUPDATE1 ---
History and Physical Update Update Date/Time: 06/01/22 07:15 History and Physical has been reviewed, including an updated exam of the patient. There are NO changes in the patient's condition. Risks, benefits, and alternatives have been discussed and questions answered. Patient agrees to proceed with procedure.
[2022-06-01] MEDS: ceFAZolin 2 GM/D5W 50 ML 2 GM/50 ML BAG IVPB (07:41)
[2022-06-01] MEDS: ceFAZolin SODIUM 1 GM VIAL 3 GM (08:32)
[2022-06-01] MEDS: ceFAZolin SODIUM 1 GM VIAL 2 GM IV PUSH (10:52)
[2022-06-01] MEDS: TRANEXAMIC ACID 1,000 MG/10 ML AMPUL 1000 MG IV PUSH (10:54)
--- NOTE | 2022-06-01 11:08 | W.PM.PROC2 ---
Procedure Note - Detailed Date of Procedure 06/01/22 Pre-op Diagnosis Lt Hip O.A. Post-op Diagnosis Same Procedure Performed Left total hip arthroplasty direct anterior approach Surgeon Pedro Luis Haider MD [facility] [employer] [facility] Anesthesia General Description of Procedure Patient was brought to the operating room and general anesthesia was administered. A Palmer catheter was placed. The feet were padded and placed in the special boots and the patient moved to the OSI [place] table. The right thigh was supported with the pad just above the knee. Fluoro was brought in and we made the pelvis level and an AP x-ray of the left hip was obtained and the bony outline traced with the leg in neutral rotation. Left hip was prepped draped usual fashion. She received 2 g Ancef weight based vancomycin 1 g of tranexamic acid preoperatively 4 mg of Decadron. The left hip incision was made 10 cm in length starting 3 cm lateral to and just distal to the ASIS. Fascia of the tensor fascia korin was exposed and incised longitudinally and elevated off the TFL muscle. Interval between rectus femoris and TFL was developed and the vascular bundle from the ascending lateral femoral circumflex vessels was identified and 3 branches were isolated ligated with suture and divided. Retractor was placed anterior medial to the capsule the hip abducted internally rotated and the gluteus minimus which had fairly significant fatty atrophy was elevated. The gluteus medius muscle had normal tension and appeared healthy. Inverted T capsulotomy was made and femoral neck osteotomy according to preoperative templating performed. Acetabulum was exposed residual labrum excised a large anterior superior osteophyte was removed. This was a broken osteophyte in may have been contributing to her increased pain of late. This gave the appropriate contour to the acetabular rim. The femoral head was small measuring 43 mm in diameter and essentially devoid of articular cartilage no osteophyte. Remaining articular cartilage superolaterally posteriorly was curetted from the acetabulum. The leg was externally rotated extended and the interval between conjoined tendon and piriformis incised which allowed the piriformis to flipped. This did not cause any recession of the conjoined tendon there seemed to be adequate mobilization of the femur in this position. The leg was brought back into the neutral position traction external rotation acetabulum exposed and we medialized with a 40. She had a prominent introitus type osteophyte circumferentially and we reamed up gradually 43, 45 and 46 and we still had a lip on the periphery of the acetabulum and we reamed to 47 and lightly reamed to the 48 and we chose the 48 shell which was impacted at 40? of abduction with the anterior edge of the shell flush with the anterior rim of the acetabulum the posterior rim the shell about 4 mm proud the posterior rim. Last bit of seating was difficult a thick shell did seat fully and excellent Press-Fit was achieved. Single screw placed in the ilium and the 32 inner diameter liner placed without difficulty. This was pinnacle cup. Next the thigh was externally rotated extended and we broached the femur to a size 5 seemed to give appropriate axial stability on broaching we countersunk about 2.5 mm before below the neck cut which is what our preoperative templating suggested and trialed. Under fluoro, with the standard neck +5 head, our leg length and offset was equal to the preoperative x-ray according to the transparency overlay. There was normal soft tissue tension and even though she could externally rotate 90? and gravity tended to achieve this by itself, there was no tendency for instability. We calcar planed and a reapplied the concise gun handle and applied repeated torsional stresses to the broach and it was solid without any movement. The size 5 Actis stem with standard neck offset was impacted and achieved an excellent press fit. We tr
--- NOTE | 2022-06-01 11:08 | SUR.OPER ---
100mL of clear yellow urine drained from noonan in OR
--- NOTE | 2022-06-01 11:33 | PM.OP ---
Procedure Note - Brief Procedure Note - Brief Date of procedure: 06/01/22 Pre-op diagnosis: Lt Hip O.A. Left hip DJD Procedure performed: Left anterior total hip arthroplasty Description of procedure: 67-year-old female who underwent left total hip arthroplasty anterior approach on 06/01. I was involved in the procedure including positioning the patient on the OR table. First assisting through the time of surgery as well as wound closure. I assisted getting patient to recovery. Total time spent was 4 hours Surgeon: WILLIAM Soto
[2022-06-01 11:49] LABS: Glucose Point of Care 142 mg/dl (65-105)
[2022-06-01] MEDS: fentaNYL CITRATE INJ (*CRX) 100 MCG/2 ML VIAL 25 MCG IV PUSH ×4 (11:56→12:13)
[2022-06-01] MEDS: oxyCODONE HCL (*CRX) 5 MG TAB IR PO ×3 (13:44→23:13)
[2022-06-01] MEDS: SODIUM CHLORIDE 0.9% IV 1,000 ML 125 ML IV CONT (13:44)
--- NOTE | 2022-06-01 17:20 | PM.IMCN ---
Assessment and Plan Assessment and plan (1) S/P total left hip arthroplasty: Code(s): Z96.642 - Presence of left artificial hip joint Status: Acute Assessment and Plan: Postop care per Ortho Pain management per Ortho -PT OT per ortho -DVT prophylaxis per Ortho. 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: Code(s): E03.8 - Other specified hypothyroidism; E06.3 - Autoimmune thyroiditis Status: Acute Assessment and Plan: Continue with levothyroxine (3) Mixed hyperlipidemia: Code(s): E78.2 - Mixed hyperlipidemia Status: Acute Assessment and Plan: Continue with Crestor (4) Insulin resistance: Onset Date: Unknown Code(s): E88.81 - Metabolic syndrome Status: Chronic Assessment and Plan: Check A1c -the patient is on metformin -Accu-Cheks AC and HS with sliding scale insulin check A1c (5) Migraine: Code(s): G43.909 - Migraine, unspecified, not intractable, without status migrainosus Status: Acute Assessment and Plan: -the patient stated that she is on metoprolol for preventative migraines. Plan Thank you for this opportunity to consult on this pleasant patient. HPI Data of Consult Consult date: 06/01/22 Requesting Physician: Pedro Luis Haider MD Primary Care Provider: Elpidio Donis MD Consult Narrative Narrative: Diya Vazquez is a 67 year old female who has been having left hip pain for well over a year. She is having difficulty with activities of daily living that require weight-bearing. She has tried [id number] medications such as ibuprofen. The patient does have severe type 2 osteoarthritis in the left hip. The pain is affecting her daily life and the patient decided to follow through with a total left hip arthroplasty anterior version today per Dr. Haider. Please see operative report. The patient is admitted per orthopedic physician who is as the hospitalist group to consult on the patient on the date of service of 06/01/2022. Review of Systems Review of Systems: See HPI All systems reviewed & are unremarkable except as noted in HPI and below Constitutional: Constitutional: Reports as per HPI and Reports no additional constitutional complaints Eyes: Eyes: Reports as per HPI and Reports no additional eye complaints ENT: Reports system reviewed and no additional complaints, except as documented and Reports Normal hearing present Cardiovascular: Cardiovascular: Reports no additional cardiovascular complaints Respiratory: Respiratory: Reports no additional respiratory complaints and Reports no additional respiratory complaints Gastrointestinal: Gastrointestinal: Reports as per HPI and Reports no additional gastrointestinal complaints Musculoskeletal: Musculoskeletal: Reports no additional musculoskeletal complaints Integumentary/Breasts: Skin/Breast: Reports system reviewed and no additional complaints, except as docu and Reports as per HPI Neurologic: Reports system reviewed and no additional complaints, except as documented, Reports as per HPI and Reports Normal hearing present Psychiatric: Psychiatric: Reports no additional psychiatric complaints and Reports as per HPI Endocrine: Endocrine: Reports no additional endocrine complaints Hematologic/Lymphatic: Hematologic/Lymphatic: Reports no additional hematologic/lymphatic complaints Allergic/Immunologic: Allergic/Immunologic: Reports no additional allergic/immunologic complaints [facility] Past Medical History Medical History (Updated 06/01/22 @ 23:03 by Anupama Snyder NP) Bilateral artificial lens implant Cataracts, bilateral Coronary artery disease Endometriosis Krzysztof's thyroiditis (Unknown) History of small bowel obstruction In May of 2015. Treated at [facility] with NG tube decompression - resolved. HTN (hypertension) (Unknown) No longer on medication Insulin resistance (U
[2022-06-01] MEDS: SENNA/DOCUSATE SODIUM TABLET 2 TAB PO (18:20)
[2022-06-01] MEDS: metFORMIN HCL 500 MG TABLET BY MOUTH (18:20)
[2022-06-01] MEDS: FAMOTIDINE 20 MG TABLET PO (20:18)
[2022-06-02] VITALS: PULSE 127
[2022-06-02 03:57] VITALS: BP 147/63; PULSE 108; RESP 18; TEMP 36.7; O2SAT 98
[2022-06-02 04:00] VITALS: PULSE 105
[2022-06-02] MEDS: oxyCODONE HCL (*CRX) 5 MG TAB IR PO ×2 (04:00→08:43)
--- NOTE | 2022-06-02 05:00 | PC.NURSE ---
PT REFUSING PILLOW PLACEMENT FOR HIP PROCEDURE ALSO REFUSING ICE PACKS AND INSTEAD REQUESTING WARM BLANKETS FOR HIP STATING SHE USES A HEATING PAD AT HOME FOR PAIN CONTROL.
[2022-06-02] MEDS: LEVOTHYROXINE SODIUM 100 MCG TABLET PO (05:52)
[2022-06-02] MEDS: LEVOTHYROXINE SODIUM 75 MCG TABLET PO (05:52)
[2022-06-02 06:21] LABS: Basophils Percent Auto 0.7 % (0.2-1.2); Eosinophils Percent Auto 0.7 % (0-4.4); Hematocrit 29.1 % (37.0-47.0); Hemoglobin 9.3 g/dL (12.0-15.0); Immature Granulocyte Absolute 0.01 K/mm3 (0.00-0.031); Immature Granulocyte Percent A 0.3 % (0-0.5); Lymphocytes Absolute Auto 0.86 K/mm3 (0.9-3.2); Mean Corpuscular Hemoglobin 27.1 pg (26-34); Mean Corpuscular Volume 84.8 fl (80-100); Mean Platelet Volume 8.9 fl (7.4-10.4); Monocytes Absolute Auto 0.5 K/mm3 (0.1-0.6); Monocytes Percent Auto 18.2 % (2.6-8.5); Neutrophils Absolute Auto 1.5 K/mm3 (1.3-6.7); Neutrophils Percent Auto 51.1 % (45.5-73.1); Platelet Count Result 248 k/mm3 (150-375); Red Blood Count 3.43 M/mm3 (4.2-5.4); Red Cell Distribution Width 15.4 % (11.5-14.5)
[2022-06-02 06:30] LABS: Anion Gap 7 mmol/L (8-16); Blood Urea Nitrogen 10 mg/dL (7-17); Calcium 7.8 mg/dL (8.4-10.2); Carbon Dioxide 23 mmol/L (22-30); Chloride 99 mmol/L (98-107); Estimated CRCL calculation 77 ml/min; Estimated Glomerular Filt Rate > 60; Glucose 126 mg/dL (65-110); Potassium 3.6 mmol/L (3.4-5.0); Sodium 129 mmol/L (137-145)
--- NOTE | 2022-06-02 06:32 | PM.PNORT ---
Subjective Subjective Date/Time Seen: 06/02/22 06:32 postop day 1 patient is alert. Afebrile vital signs are stable. Morning labs are pending. Her drain is out and dressing is dry. Patient was up with therapy yesterday walking and is comfortable. Pain overall is very well controlled. Patient is refusing her Tylenol due to GI intolerance in the past to this. She is tolerating the oxycodone and pain overall as well tolerated. Neurovascularly she is intact. Plan will be to have patient work with therapy this morning and then discharge home later this morning. Objective Data Vital Signs Vital Signs: Vital Signs - 24 hr 06/01/22 06:43 06/01/22 11:27 06/01/22 11:40 Temperature 36.1 C L 36.8 C Pulse Rate 107 H 86 81 Respiratory Rate 18 28 H 20 Blood Pressure 116/73 143/73 H 124/69 Pulse Oximetry 99 100 100 Oxygen Delivery Room Air Simple Face Mask Simple Face Mask Oxygen Flow Rate 6 6 06/01/22 11:55 06/01/22 12:05 06/01/22 12:10 Temperature Pulse Rate 76 74 Respiratory Rate 18 18 Blood Pressure 120/63 124/61 Pulse Oximetry 100 88 L Oxygen Delivery Simple Face Mask Room Air Nasal Cannula Oxygen Flow Rate 6 2 06/01/22 12:25 06/01/22 12:40 06/01/22 13:05 Temperature 36.3 C L 35.7 C L Pulse Rate 91 70 67 Respiratory Rate 16 18 18 Blood Pressure 104/61 111/61 123/61 Pulse Oximetry 99 99 100 Oxygen Delivery Nasal Cannula Nasal Cannula Oxygen Flow Rate 2 2 06/01/22 13:20 06/01/22 14:02 06/01/22 16:00 Temperature 35.6 C L Pulse Rate 82 98 Respiratory Rate 18 Blood Pressure 120/54 L Pulse Oximetry 100 Oxygen Delivery Room Air Oxygen Flow Rate 06/01/22 13:50 06/01/22 14:50 06/01/22 19:18 Temperature 35.7 C L 35.7 C L 36.4 C L Pulse Rate 81 98 81 Respiratory Rate 18 16 18 Blood Pressure 118/67 117/89 144/60 H Pulse Oximetry 98 100 100 Oxygen Delivery Oxygen Flow Rate 06/01/22 20:00 06/01/22 23:29 06/01/22 20:00 Temperature 37.7 C H Pulse Rate 107 H 70 Respiratory Rate 18 Blood Pressure 152/67 H Pulse Oximetry 99 Oxygen Delivery Room Air Oxygen Flow Rate 06/02/22 00:00 06/02/22 03:57 06/02/22 04:00 Temperature 36.7 C Pulse Rate 127 H 108 H 105 H Respiratory Rate 18 Blood Pressure 147/63 H Pulse Oximetry 98 Oxygen Delivery Oxygen Flow Rate 06/01/22 13:38 Temperature 35.6 C L Pulse Rate 82 Respiratory Rate Blood Pressure 120/54 L Pulse Oximetry 100 Oxygen Delivery Oxygen Flow Rate Intake/Output Intake/Output: Intake & Output 05/30/22 05/31/22 06/01/22 06/02/22 23:59 23:59 23:59 23:59 Intake Total 940 100 Output Total 300 1050 Balance 640 -950 Meds/Results Medications: Active Medications Generic Name Dose Route Start Last Admin Trade Name Freq PRN Reason Stop Dose Admin Acetaminophen 1,000 mg 06/01/22 12:48 06/02/22 05:18 Acetaminophen 500 Mg Tablet PO Not Given Q6HR RAJAN Apixaban 2.5 mg 06/02/22 09:00 Apixaban 2.5 Mg Tablet PO Q12HR RAJAN Cephalexin HCl 500 mg 06/02/22 10:00 Cephalexin 500 Mg Capsule PO Q6H RAJAN Dextrose 12.5 gm 06/01/22 22:59 Dextrose 50% 25 Gm/50 Ml Syringe IV PUSH PRN PRN Hypoglycemia Protocol Famotidine 20 mg 06/01/22 21:00 06/01/22 20:18 Famotidine 20 Mg Tablet PO 20 mg Q12HR RAJAN Administration Glucagon 1 mg 06/01/22 22:59 Glucagon For Inj 1 Mg Vial IM PRN PRN Hypoglycemia Protocol Glucose 15 gm 06/01/22 22:59 Glucose Oral Gel 15 Gm Of Glucse In 37.5 Gm Tube PO PRN PRN Hypoglycemia Protocol Hydroxyzine HCl 50 mg 06/01/22 12:48 Hydroxyzine Hcl 25 Mg Tablet PO Q4H PRN Itching Vancomycin HCl 1,000 mg in 250 mls @ 250 mls/hr 06/01/22 18:00 06/02/22 05:46 Vancomycin 1,000 Mg/D5w 250 Ml IVPB 06/02/22 06:59 250 mls/hr Q12H RAJAN Administration Cefazolin Sodium 1 gm in 50 mls @ 100 mls/hr 06/01/22 16:00 06/01/22 23:43 Ancef 1 G
--- NOTE | 2022-06-02 06:37 | PM.DS ---
DS: Admitting Diagnosis Discharge Date 06/02 Admitting Diagnosis Left hip DJD DS: Discharge Diagnosis Discharge Diagnosis (1) S/P total left hip arthroplasty: Code(s): Z96.642 - Presence of left artificial hip joint Status: Acute DS: Summary Hospital Course Hospital Course: 67-year-old female who underwent left anterior total hip arthroplasty 06/01. Underwent the procedure without complication. Postoperatively she has been afebrile vital signs are stable. Neurovascularly she is intact. She was up walking with physical therapy the day of surgery. Pain is well controlled with oxycodone 5 mg. Patient states she is allergic to Tylenol and has been refusing it. She is on Eliquis for DVT prophylaxis. 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 She was taking Celebrex 7 days prior to surgery and tolerating this well. She does have a history GI intolerance after taking a sulfa drug 20 years ago and this was on the last day of her regimen. She has not had any problems taking the Celebrex the week before surgery. We will send her home with Pepcid as well for protection. She will be on Keflex for 2 weeks due to her history of diabetes. She is weight-bearing as tolerated. She will be on Senokot and MiraLax at home as well for constipation. Patient was advised to keep the leg elevated home prevent swelling but may be up walking as her comfort allows. She was advised any questions or concerns she is to call the office otherwise we will see her at her appointed dates Time Spent with Patient Time attestation: Total time spent providing and/or coordinating discharge services: DS: Data Data Completed and Pending Labs on day of discharge: Labs from last 24 hours 06/02/22 06/02/22 06/02/22 05:26 05:26 05:26 WBC 3.0 L RBC 3.43 L Hgb 9.3 L D Hct 29.1 L MCV 84.8 MCH 27.1 MCHC 32.0 RDW 15.4 H Plt Count 248 MPV 8.9 Immature Gran % (Auto) 0.3 Neut % (Auto) 51.1 Lymph % (Auto) 29.0 Warrick % (Auto) 18.2 H Eos % (Auto) 0.7 Baso % (Auto) 0.7 Lymph # (Auto) 0.86 L Warrick # (Auto) 0.5 Eos # (Auto) 0.0 Baso # (Auto) 0.0 Abs Immat Gran (auto) 0.01 Absolute Neuts (auto) 1.5 Absolute Nucleated RBC 0.0 Nucleated RBC % 0.0 Sodium 129 L Potassium 3.6 Chloride 99 Carbon Dioxide 23 Anion Gap 7 L BUN 10 Creatinine 0.60 L Estim Creat Clear Calc 77 Estimated GFR > 60 Glucose 126 H POC Capillary Glucose Hemoglobin A1c Pending Calcium 7.8 L Blood Type Antibody Screen 06/01/22 06/01/22 06/01/22 11:46 06:41 06:32 WBC RBC Hgb Hct MCV MCH MCHC RDW Plt Count MPV Immature Gran % (Auto) Neut % (Auto) Lymph % (Auto) Warrick % (Auto) Eos % (Auto) Baso % (Auto) Lymph # (Auto) Warrick # (Auto) Eos # (Auto) Baso # (Auto) Abs Immat Gran (auto) Absolute Neuts (auto) Absolute Nucleated RBC Nucleated RBC % Sodium Potassium Chloride Carbon Dioxide Anion Gap BUN Creatinine Estim Creat Clear Calc Estimated GFR Glucose POC Capillary Glucose 142 H 103 Hemoglobin A1c Calcium Blood Type B Positive Antibody Screen Negative Discharge Plan Discharge Patient Disposition: Home, Self-Care Discharge Instructions: CLAUDY SERNA M.D [facility], [place] [address] [address] [place] [id number] POST-OPERATIVE DISCHARGE INSTRUCTIONS ANTERIOR TOTAL HIP ARTHROPLASTY 1. Move toes/feet up and down every hour while awake. 2. Be up walking every hour while awake. 3. Use cane in hand opposite of side of hip surgery or walker as comfort allows. Avoid sitting in a chair unless eating, receiving visitors or using the toilet. 4. When resting, lie on back with leg elevated above heart to minimize swelling. Significant swelling could marvin
[2022-06-02 07:26] LABS: Hemoglobin A1C 5.5 % (<5.7)
[2022-06-02] MEDS: metFORMIN HCL 500 MG TABLET 1000 MG BY MOUTH (08:40)
[2022-06-02] MEDS: FAMOTIDINE 20 MG TABLET PO (08:42)
[2022-06-02] MEDS: ROSUVASTATIN 2.5 MG TABLET 7.5 MG PO (08:43)
[2022-06-02] MEDS: SENNA/DOCUSATE SODIUM TABLET 2 TAB PO (08:43)
[2022-06-02] MEDS: TERBINAFINE HCL 250 MG TABLET PO (08:43)
[2022-06-02] MEDS: APIXABAN 2.5 MG TABLET PO (08:44)
[2022-06-02] MEDS: polyethylene glycoL 3350 17 GM POWD.PACK PO (08:48)
[2022-06-02] MEDS: CEPHALEXIN 500 MG CAPSULE PO (08:57)
[2022-06-02] MEDS: MELOXICAM 7.5 MG TABLET PO (08:57)
--- NOTE | 2022-06-02 08:57 | PCPTNOTE ---
Patient refused treatment this session due to patient wanting to take a nap at this time.
[2022-06-02 09:03] LABS: Glucose Point of Care 122 mg/dl (65-105)
[2022-06-02 10:09] VITALS: BP 119/61; PULSE 103; RESP 18; TEMP 37.6; O2SAT 99
--- NOTE | 2022-06-02 11:49 | PM.IMPN ---
Progress Note: A&P Assessment and Plan (1) S/P total left hip arthroplasty: Code(s): Z96.642 - Presence of left artificial hip joint Status: Acute Assessment and Plan: Postop care per Ortho Pain management per Ortho -PT OT per ortho -DVT prophylaxis per Ortho. The patient is on Eliquis. 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: Code(s): E03.8 - Other specified hypothyroidism; E06.3 - Autoimmune thyroiditis Status: Acute Assessment and Plan: Continue with levothyroxine (3) Mixed hyperlipidemia: Code(s): E78.2 - Mixed hyperlipidemia Status: Acute Assessment and Plan: Continue with Crestor (4) Insulin resistance: Onset Date: Unknown Code(s): E88.81 - Metabolic syndrome Status: Chronic Assessment and Plan: Check A1c -the patient is on metformin -Accu-Cheks AC and HS with sliding scale insulin check A1c (5) Migraine: Code(s): G43.909 - Migraine, unspecified, not intractable, without status migrainosus Status: Acute Assessment and Plan: -the patient stated that she is on metoprolol for preventative migraines. Plan Thank you for this opportunity to consult on this pleasant patient. Time Spent With Patient Time with patient: 15 - 25 minutes Subjective Date/time seen: 06/02/22 11:49 Interval history: Patient resting comfortably in bed. States that she does have some left hip pain but other than that she is doing well. patient has no other complaints at this time. Denies shortness of breath, nausea, vomiting and lower extremity swelling. Patient is stable and cleared to be discharged at this time. Review of Systems Review of Systems: All systems reviewed & are unremarkable except as noted in HPI and below Exam Narrative: GENERAL: Comfortable, no acute distress HENMT: moist mucous membranes EYES: EOM intact b/l NECK: no lymphadenopathy RESPIRATORY: clear to auscultation CARDIO: RRR GI: soft, nontender, bowel sounds present SKIN: no rashes EXTREMITIES: Left hip bandage dry and intact minimal bruising and swelling. Objective Data Vital Signs Vital Signs: Vital Signs - 24 hr 06/01/22 11:55 06/01/22 12:05 06/01/22 12:10 Temperature Pulse Rate 76 74 Respiratory Rate 18 18 Blood Pressure 120/63 124/61 Pulse Oximetry 100 88 L Oxygen Delivery Simple Face Mask Room Air Nasal Cannula Oxygen Flow Rate 6 2 06/01/22 12:25 06/01/22 12:40 06/01/22 13:05 Temperature 97.3 F L 96.2 F L Pulse Rate 91 70 67 Respiratory Rate 16 18 18 Blood Pressure 104/61 111/61 123/61 Pulse Oximetry 99 99 100 Oxygen Delivery Nasal Cannula Nasal Cannula Oxygen Flow Rate 2 2 06/01/22 13:20 06/01/22 14:02 06/01/22 16:00 Temperature 96.1 F L Pulse Rate 82 98 Respiratory Rate 18 Blood Pressure 120/54 L Pulse Oximetry 100 Oxygen Delivery Room Air Oxygen Flow Rate 06/01/22 13:50 06/01/22 14:50 06/01/22 19:18 Temperature 96.2 F L 96.2 F L 97.5 F L Pulse Rate 81 98 81 Respiratory Rate 18 16 18 Blood Pressure 118/67 117/89 144/60 H Pulse Oximetry 98 100 100 Oxygen Delivery Oxygen Flow Rate 06/01/22 20:00 06/01/22 23:29 06/01/22 20:00 Temperature 99.8 F H Pulse Rate 107 H 70 Respiratory Rate 18 Blood Pressure 152/67 H Pulse Oximetry 99 Oxygen Delivery Room Air Oxygen Flow Rate 06/02/22 00:00 06/02/22 03:57 06/02/22 04:00 Temperature 98.1 F Pulse Rate 127 H 108 H 105 H Respiratory Rate 18 Blood Pressure 147/63 H Pulse Oximetry 98 Oxygen Delivery Oxygen Flow Rate 06/02/22 10:09 06/01/22 13:38 Temperature 99.6 F 96.1 F L Pulse Rate 103 H 82 Respiratory Rate 18 Blood Pressure 119/61 120/54 L Pulse Oximetry 99 100 Oxygen Delivery Oxygen Flow Rate Intake/Output Intake/Output: Intake & Output 05/30/22 05/31/22 06/01/22 06/02/22 23:59 23:59 23:59 23:59 Intake Total 940 340 Output Total 300 1050 Balance 640
== END 2022-06-02 11:50 | disposition home or self-care (01) ==
LOC: ANHSURGERY 05:56 → ANH2MED 12:50
PROVIDERS: Nurse Practitioner; Physician Assistant Surgical; PCP Family Medicine Adolescent Medicine; Visit Provider Orthopaedic Surgery
PROC: (CPT 27130; principal; 2022-06-01 07:30)
DX: M16.12 Unilateral primary osteoarthritis, left hip (principal); I25.10 Atherosclerotic heart disease of native coronary artery without angina pectoris; E06.3 Autoimmune thyroiditis; I10 Essential (primary) hypertension; E78.2 Mixed hyperlipidemia; E88.81 Metabolic syndrome and other insulin resistance; E66.9 Obesity, unspecified; Z68.36 Body mass index [BMI] 36.0-36.9, adult; Z79.84 Long term (current) use of oral hypoglycemic drugs
CPT/HCPCS: 27130; 36415; 73501; 80048; 80307; 82040; 82948; 83036; 85025; 86850; 86900; 86901; 87081; 93005; 97110; 97116; 97161; 97165; 97530; 97535; 99199; A9270; C1776; J0171; J0690; J1100; J1170; J1885; J2250; J2270; J2405; J2704; J2795; J3010; J3370; J7030; J7120

== ENCOUNTER → 2023-06-15 12:35 | Outpatient (CLI) | payer MEDICARE, SELFPAY ==
--- NOTE | ~2023-06-15 | MR_ITS ---
EXAMINATION: MR cervical spine wo con DATE: 06/15/2023 13:15 INDICATION: Neck pain. C7 fracture. TECHNIQUE: Magnetic resonance imaging (MRI) of the cervical spine was performed without intravenous c ontrast. COMPARISON: None FINDINGS: There is 2 mm anterolisthesis of C7 on T1. Vertebral body heights are normal. There is mild ly decreased disc height at C4-C5, severely decreased disc height at C5-C6, and moderately decreased disc height at C6-C7. The spinal cord signal intensity is normal. The following disc levels are speci fically discussed: C2-C3: There is a central extrusion. There is mild bilateral uncovertebral joint osteoarthritis. Ther e is mild bilateral facet joint osteoarthritis. There is mild left neural foraminal stenosis. There i s no central canal stenosis. C3-C4: There is a central protrusion. There is mild bilateral uncovertebral joint osteoarthritis. The re is severe bilateral facet joint osteoarthritis. There is mild bilateral neural foraminal stenosis. There is no central canal stenosis. C4-C5: The disc does not extend beyond the endplate margin. There is mild bilateral uncovertebral liliane nt osteoarthritis. There is moderate bilateral facet joint osteoarthritis. There is no neural foramin al stenosis. There is no central canal stenosis. C5-C6: The disc is bulging. There is severe bilateral uncovertebral joint osteoarthritis. There is mo derate right and mild left facet joint osteoarthritis. There is severe right and moderate left neural foraminal stenosis. There is mild central canal stenosis. C6-C7: The disc is bulging. There is moderate bilateral uncovertebral joint osteoarthritis. There is severe bilateral facet joint osteoarthritis. There is mild bilateral neural foraminal stenosis. There is mild central canal stenosis. C7-T1: The disc does not extend beyond the endplate margin. There is no uncovertebral joint osteoarth ritis. There is mild right and severe left facet joint osteoarthritis. There is moderate left neural foraminal stenosis. There is no central canal stenosis. IMPRESSION: 1. Severe cervical spondylosis. Reviewed, dictated and finalized at location A. AL SPECIALIST
== END ==
PROVIDERS: PCP Nurse Practitioner Family; Visit Provider Nurse Practitioner Family
DX: S12.600A Unspecified displaced fracture of seventh cervical vertebra, initial encounter for closed fracture (principal); X58.XXXA Exposure to other specified factors, initial encounter; M47.892 Other spondylosis, cervical region
CPT/HCPCS: 72141

== ENCOUNTER → 2023-06-18 09:06 | Outpatient (CLI) | payer MEDICARE, SELFPAY ==
--- NOTE | ~2023-06-18 | XR_ITS ---
EXAMINATION:XR_[id number]_CR DATE: 06/18/2023 09:30 INDICATION: Neck pain TECHNIQUE: AP, lateral, and odontoid views of the cervical spine are provided. COMPARISON: None FINDINGS: Alignment is normal. The odontoid process is intact. No fracture is identified. The vertebr al body heights are normal. There is mild loss of intervertebral disc space height at C5-6. There is multilevel mild facet and uncovertebral joint osteoarthritis. Prevertebral soft tissues are normal. IMPRESSION: 1. Mild cervical spondylosis without acute findings. Reviewed, dictated and finalized at location F. MANAGEMENT CONSULTANT
--- NOTE | ~2023-06-18 | XR_ITS ---
EXAMINATION: XR shoulder LT min 2V DATE: 06/18/2023 09:31 INDICATION: Left shoulder pain TECHNIQUE: AP internally and externally rotated, AP oblique externally rotated, axillary and transsca pular Y views of the left shoulder were obtained. COMPARISON: None FINDINGS: Normal alignment. No fracture. Glenohumeral joint is normal. . Acromioclavicular osteoarthritis with moderate-sized inferiorly directed osteophytes. Soft tissues are unremarkable. Visualized portion of the left lung are clear. IMPRESSION: Moderate left acromioclavicular osteoarthritis. Reviewed, dictated and finalized at location B. ICAL UNIT OPERATOR
== END ==
PROVIDERS: PCP Nurse Practitioner Family; Visit Provider Family Medicine Adolescent Medicine
DX: S12.600A Unspecified displaced fracture of seventh cervical vertebra, initial encounter for closed fracture (principal); X58.XXXA Exposure to other specified factors, initial encounter; M47.892 Other spondylosis, cervical region; M19.012 Primary osteoarthritis, left shoulder
CPT/HCPCS: 72040; 73030

== ENCOUNTER 2023-08-11 14:58 | Outpatient (CLI) | payer MEDICARE, SELFPAY ==
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
== END 2023-08-11 14:59 ==
PROVIDERS: PCP Obstetrics & Gynecology; Visit Provider Family Medicine Adolescent Medicine
DX: Z12.31 Encounter for screening mammogram for malignant neoplasm of breast (principal); R92.8 Other abnormal and inconclusive findings on diagnostic imaging of breast
CPT/HCPCS: 77063; 77067

== ENCOUNTER 2023-09-19 20:39 | Emergency (ER) | payer MEDICARE, SELFPAY ==
--- NOTE | ~2023-09-19 | CT_ITS ---
EXAMINATION: CT abdomen pelvis wo con DATE: 09/19/2023 21:55 INDICATION: Right flank pain. Right-sided low back pain. Kidney stones. TECHNIQUE: Computed tomography (CT) of the abdomen and pelvis was performed without intravenous contr ast. Automated exposure control and iterative reconstruction technique were employed. The dose-length product was 954.97 mGy-cm. COMPARISON: CT abdomen and pelvis 12/15/2021 FINDINGS: The visualized portions of the lung bases demonstrate mild atelectasis. A calcified left myrna ng nodule is consistent with old granulomatous disease. No pleural effusion. The heart size is normal . No pericardial effusion. There are coronary artery calcifications. The liver and spleen are normal. There are changes of cholecystectomy. The pancreas, adrenal glands, and left kidney are normal. Ther e are cysts in right kidney measuring up to 2.1 cm. No urolithiasis. There is diverticulosis of the c olon without evidence of diverticulitis. There are no dilated loops of bowel. The appendix is not vis ualized. There are no pathologically enlarged lymph nodes. There is calcified atherosclerosis of the aorta and many of the other arteries. There is a total left hip arthroplasty. There is thoracolumbar levoscoliosis and severe spondylosis. IMPRESSION: 1. No urolithiasis. Reviewed, dictated and finalized at location E. IMPRESSION: 1. No urolithiasis.
[2023-09-19 20:40] VITALS: BP 143/60; PULSE 120; RESP 17; TEMP 35.9; O2SAT 97
[2023-09-19 21:16] VITALS: BP 135/75; PULSE 102; RESP 16; O2SAT 96
[2023-09-19 21:20] LABS: Basophils Percent Auto 0.7 % (0.2-1.2); Eosinophils Absolute Auto 0.1 K/mm3 (0-0.3); Eosinophils Percent Auto 4.9 % (0-4.4); Hematocrit 37.3 % (37.0-47.0); Hemoglobin 11.6 g/dL (12.0-15.0); Immature Granulocyte Absolute 0.01 K/mm3 (0.00-0.031); Immature Granulocyte Percent A 0.3 % (0-0.5); Lymphocytes Absolute Auto 1.08 K/mm3 (0.9-3.2); Lymphocytes Percent Auto 37.8 % (18.3-44.2); Mean Corpuscular HGB Conc 31.1 g/dl (32-36); Mean Corpuscular Volume 77.1 fl (80-100); Mean Platelet Volume 8.6 fl (7.4-10.4); Monocytes Absolute Auto 0.6 K/mm3 (0.1-0.6); Monocytes Percent Auto 19.2 % (2.6-8.5); Neutrophils Absolute Auto 1.1 K/mm3 (1.3-6.7); Neutrophils Percent Auto 37.1 % (45.5-73.1); Platelet Count Result 363 k/mm3 (150-375); Red Blood Count 4.84 M/mm3 (4.2-5.4); Red Cell Distribution Width 18.3 % (11.5-14.5); White Blood Count 2.9 K/mm3 (4.5-10.0)
[2023-09-19 21:33] LABS: Alanine Aminotransferase 16 U/L (6-35); Alkaline Phosphatase 119 U/L (38-126); Anion Gap 8 mmol/L (4-12); Aspartate Amino Transferase 21 U/L (14-36); Bilirubin,Total 0.5 mg/dL (0.2-1.3); Blood Urea Nitrogen 13 mg/dL (7-17); Calcium 9.5 mg/dL (8.4-10.2); Carbon Dioxide 25 mmol/L (22-30); Chloride 106 mmol/L (98-107); Estimated CRCL calculation 74 ml/min; Estimated Glomerular Filt Rate > 60; Glucose 127 mg/dL (65-110); Potassium 3.9 mmol/L (3.4-5.0); Sodium 139 mmol/L (137-145)
[2023-09-19 22:02] VITALS: BP 133/74; PULSE 89; RESP 16; O2SAT 99
[2023-09-19 22:44] LABS: Appearance Urine Cloudy (Clear); Bacteria Urine Rare /hpf; Bilirubin Urine Negative (Negative); Blood Urine Negative (Negative); Color Urine Yellow (Yellow); Glucose Urine UA Negative (Negative); Ketones Urine Negative (Negative); Leukocyte Esterase Ur Negative LEU/UL (Negative); Nitrate Urine Negative (Negative); Non Pathogenic Casts 0-2; Protein Urine Negative (Negative); RBC Urine 0-2 /hpf (0-2); Specific Grav Ur 1.024 (1.001-1.035); Squamous Epithelial Cell Urine Occasional /hpf (Few); WBC Urine 0-5 /hpf (0-3); pH Urine 5.5 (5.0-9.0)
[2023-09-19 22:45] LABS: Add Urine Microscopic? NO
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
== END 2023-09-19 22:56 | disposition home or self-care (01) ==
PROVIDERS: Emergency Provider Emergency Medicine; PCP Family Medicine Adolescent Medicine
DX: S39.012A Strain of muscle, fascia and tendon of lower back, initial encounter (principal); I25.10 Atherosclerotic heart disease of native coronary artery without angina pectoris; I10 Essential (primary) hypertension; Z87.442 Personal history of urinary calculi; X58.XXXA Exposure to other specified factors, initial encounter
CPT/HCPCS: 36415; 74176; 80053; 81003; 85025; 99284

== ENCOUNTER 2025-01-02 15:17 | Outpatient (CLI) | payer MEDICARE, SELFPAY ==
--- NOTE | ~2025-01-02 | MM_ITS ---
EXAMINATION: MM screening katina BI w shaw HISTORY: Screening TECHNIQUE: Craniocaudal and mediolateral oblique 3-D tomosynthesis images were obtained and synthetic 2-D images were generated. CAD analysis was submitted and interpreted. COMPARISON: 08/11/2023 BREAST PARENCHYMAL COMPOSITION: Not Dense: The breasts are almost entirely fatty. FINDINGS: There is no evidence of suspicious mass, calcification, or architectural distortion to suggest malignancy. There has been no suspicious interval change. IMPRESSION: 1. No mammographic evidence of malignancy. Recommend routine screening mammography in one year. BI-RADS Category 2: Benign finding(s) Reviewed, dictated and finalized at location Q. IMPRESSION: 1. No mammographic evidence of malignancy. Recommend routine screening mammogra phy in one year. BI-RADS Category 2: Benign finding(s)
== END 2025-01-02 15:18 | disposition home or self-care (01) ==
LOC: MICIMG 15:18
PROVIDERS: PCP Surgery; Visit Provider Family Medicine Adolescent Medicine
DX: Z12.31 Encounter for screening mammogram for malignant neoplasm of breast (principal)
CPT/HCPCS: 77063; 77067